=== PATIENT | female | born 1990 | race Caucasian/White ===

== ENCOUNTER → 2017-10-19 12:01 | Outpatient (CLI) | payer OTHER, SELFPAY ==
[2017-10-19 13:08] LABS: Hemoglobin A1c 6.9 % (4.2-6.3)
[2017-10-19 13:13] LABS: ALB/GLOB Ratio 0.9 RATIO (0.9-2.4); AST(SGOT) 14 U/L (15-37); Alanine Aminotransfer ALT/SGPT 17 U/L (13-56); Albumin, Serum 3.6 g/dL (3.2-5.0); Alkaline Phosphatase 100 U/L (45-117); Anion Gap 8 (5-15); BUN 10 mg/dL (7-18); BUN/Creat Ratio 12.1 RATIO (10-20); Calcium,Total 8.5 mg/dL (8.5-10.1); Chloride 104 mmol/L (98-107); Creatinine, Serum 0.83 mg/dL (0.55-1.02); EST Glomerular Filtration Rate 88 mL/min (>60); Est Glom Filt Rate - Afr Amer 106 mL/min (>60); Free T3 2.4 pg/mL (2.18-3.98); Glucose 161 mg/dL (74-106); Potassium 3.7 mmol/L (3.5-5.1); Protein, Total 7.6 g/dL (6.4-8.2); Sodium Level 136 mmol/L (136-145); T4 Free Direct 1.02 ng/dL (0.76-1.46); Thyroid Stim Hormone (TSH) 2.59 uIU/mL (0.358-3.74)
[2017-10-19 13:33] LABS: Vitamin D,25 Hydroxy 20.3 ng/mL (29.95-100.01)
== END ==
PROVIDERS: Visit Provider Nurse Practitioner
DX: E13.9 Other specified diabetes mellitus without complications (principal); E03.9 Hypothyroidism, unspecified
CPT/HCPCS: 36415; 80053; 82306; 83036; 84439; 84443; 84481

== ENCOUNTER → 2017-10-20 09:18 | Outpatient (CLI) | payer OTHER, SELFPAY ==
[2017-10-20 11:13] LABS: Microalbumin,Random Urine 8.9 mg/L (NO RANGE EST.); Microalbumin:Creatinine Ratio 7.5 mg/g CRE (<30 mg/g CRE)
== END ==
PROVIDERS: Visit Provider Nurse Practitioner
DX: E11.9 Type 2 diabetes mellitus without complications (principal)
CPT/HCPCS: 82043; 82570

== ENCOUNTER → 2018-02-09 09:50 | Outpatient (CLI) | payer OTHER, SELFPAY ==
--- NOTE | 2018-02-09 09:52 | US_ITS ---
STUDY: ULTRASOUND OF THE FEMALE PELVIS - COMPLETE REASON FOR EXAM: Female, 27 years old. Pelvic pain LMP: 02/04/2018 TECHNIQUE: Transabdominal and Transvaginal TECHNICAL QUALITY: Adequate. COMPARISON: None. FINDINGS: The uterus is anteverted and is in a midline position. The uterus measures 8.4 x 5.4 x 3.2 cm. Normal uterine cervix. The endometrium measures 8 mm in thickness, and is . There is no demonstrated endometrial mass. There is no demonstrated myometrial mass. I.U.D. - The patient does not have an I.U.D. The right ovary is visualized. The right ovary measures 3.8 x 3.2 x 2.4 cm. There is no right ovarian cyst or ovarian mass. There is no visualized right adnexal mass or complex lesion. There is normal arterial and normal venous vascularity. The left ovary is visualized. The left ovary measures 2.9 x 3.3 x 1.9 cm. There is no left ovarian cyst or ovarian mass. There is no visualized left adnexal mass or complex lesion. There is normal arterial and normal venous vascularity. There is no fluid in the cul-de-sac. The pre void volume of the bladder was ml. The post void volume of the bladder was ml. Polycystic ovary disease: No. US/Pelvic (Non ) IMPRESSION: Normal female pelvis. Electronically Signed: José Miguel Farmer MD at 7:45 EDT Tel , Service support ,
--- NOTE | 2018-02-09 10:28 | US_ITS ---
STUDY: ULTRASOUND OF THE FEMALE PELVIS - COMPLETE REASON FOR EXAM: Female, 27 years old. Pelvic pain LMP: 02/04/2018 TECHNIQUE: Transabdominal and Transvaginal TECHNICAL QUALITY: Adequate. COMPARISON: None. FINDINGS: The uterus is anteverted and is in a midline position. The uterus measures 8.4 x 5.4 x 3.2 cm. Normal uterine cervix. The endometrium measures 8 mm in thickness, and is . There is no demonstrated endometrial mass. There is no demonstrated myometrial mass. I.U.D. - The patient does not have an I.U.D. The right ovary is visualized. The right ovary measures 3.8 x 3.2 x 2.4 cm. There is no right ovarian cyst or ovarian mass. There is no visualized right adnexal mass or complex lesion. There is normal arterial and normal venous vascularity. The left ovary is visualized. The left ovary measures 2.9 x 3.3 x 1.9 cm. There is no left ovarian cyst or ovarian mass. There is no visualized left adnexal mass or complex lesion. There is normal arterial and normal venous vascularity. There is no fluid in the cul-de-sac. The pre void volume of the bladder was ml. The post void volume of the bladder was ml. Polycystic ovary disease: No. US/Transvaginal Non- IMPRESSION: Normal female pelvis. Electronically Signed: José Miguel Farmer MD at 7:45 EDT Tel , Service support ,
== END ==
PROVIDERS: Family Provider Internal Medicine; PCP Internal Medicine; Referring Provider Internal Medicine; Visit Provider Internal Medicine
DX: R10.2 Pelvic and perineal pain (principal)
CPT/HCPCS: 76830; 76856; 93976

== ENCOUNTER 2018-10-01 01:05 | Emergency (ER) | payer OTHER, SELFPAY ==
[2018-10-01 01:06] VITALS: BP 135/78; PULSE 109; RESP 18; TEMP 36.2; O2SAT 95; BMI 37.7
--- NOTE | 2018-10-01 01:19 | EKG12_ITS ---
Test Reason : CP Blood Pressure : / mmHG Vent. Rate : 103 BPM Atrial Rate : 103 BPM P-R Int : 126 ms QRS Dur : 074 ms QT Int : 384 ms P-R-T Axes : 040 029 019 degrees QTc Int : 503 ms Sinus tachycardia Otherwise normal ECG Confirmed by LAURA PATEL, SAURABH ([id number]), rewrite editor TARIQ MIXON ([id number]) on 10/02/2018 10:40:24 AM Referred By: JUSTIN Confirmed By:SAURABH SANCHEZ MD
--- NOTE | 2018-10-01 01:19 | RAD_ITS ---
HISTORY: COUGH EXAM:XR Chest 1 View portable COMPARISON: 07/20/2016 FINDINGS: EKG leads in place. Normal heart size. No vascular congestion, pleural effusion, or acute pulmonary infiltration. No pneumothorax. The bony thorax appears intact. RAD/Chest 1 View (Portable) IMPRESSION: Normal chest. at 0212 Reported and signed by: Vic Andres MD Electronically Signed: Vic Andres, at 2:11 EDT Tel , Service support ,
--- NOTE | 2018-10-01 01:19 | CT_ITS ---
HISTORY: UNRESPONSIVE WITH MENTAL STATUS CHANGE,LOW BLOOD SUGAR,SHIELDEDHX:DIABETES,DKA EXAMINATION: CT Head or Brain W/O Contrast TECHNIQUE: Multiple axial images were obtained of the brain without intravenous contrast. A radiation dose optimization technique was used for this scan. IV Contrast dosage and agent: None. COMPARISON: None FINDINGS: Normal ventricles and normal payan-white matter differentiation. No intracranial mass, hemorrhage, or acute parenchymal abnormality. Posterior fossa structures are unremarkable. No suspicious extra-axial fluid collection. The calvarium appears intact. As visualized, the mastoids and The sinuses are clear. CT/Brain/Head without Contrast IMPRESSION: Normal CT brain without contrast. Individualized dose optimization techniques were used for this CT. at 0252 Reported and signed by: Vic Andres MD Electronically Signed: Vic Andres, at 2:51 EDT Tel , Service support ,
[2018-10-01 01:21] LABS: Bedside Glucose 146 mg/dL (70-110)
[2018-10-01] MEDS: 0.9% Normal Saline 1,000 ML 1000 ML IV (01:22)
[2018-10-01 01:30] LABS: Absolute Lymphocyte Count 2.99 X10^3/ul (0.83-4.51); Absolute Neutrophil Count 5.9 X10^3/uL (2.0-7.7); Basophil# 0.03 X10^3/uL; Basophil% 0.3 % (0-1); Eosinophil# 0.13 X10^3/uL; Eosinophils% 1.3 % (0-5); Hematocrit 39.3 % (37-47); Lymphocyte # 2.99 X10^3/ul (4.0); Lymphocyte % 30.2 % (19-41); Mean Corp Hgb Conc 35.6 g/gl (32-36); Mean Corpuscular Volume 86.9 fL (81-99); Mean Platelet Vol. 10.3 fl (6.2-12.0); Monocyte# 0.81 X10^3/uL; Monocyte% 8.2 % (0-10); Neutrophil # 5.92 X10^3/uL (2.7-7.7); Neutrophil % 59.8 % (47-70); Platelet Count 179 K/mm3 (150-450); RBC Distribution Width CV 11.6 % (11.6-14.6); RBC Distribution Width SD 36.8 fl (35.1-43.9); Red Blood Count 4.52 M/mm3 (4.2-5.4); White Blood Count 9.9 K/mm3 (4.4-11.0)
[2018-10-01 01:34] LABS: POSITIVE COUNT NO; POSITIVE DIFFERENTIAL NO; POSITIVE MORPHOLOGY NO
[2018-10-01 01:44] LABS: ALB/GLOB Ratio 0.9 RATIO (0.9-2.4); AST(SGOT) 17 U/L (15-37); Alanine Aminotransfer ALT/SGPT 17 U/L (13-56); Albumin, Serum 3.5 g/dL (3.2-5.0); Alkaline Phosphatase 95 U/L (45-117); Anion Gap 9 (5-15); BUN 14 mg/dL (7-18); BUN/Creat Ratio 15.6 RATIO (10-20); Calcium,Total 8.1 mg/dL (8.5-10.1); Chloride 103 mmol/L (98-107); EST Glomerular Filtration Rate 79 mL/min (>60); Est Glom Filt Rate - Afr Amer 96 mL/min (>60); Estimated Creatinine Clearance 83.74 ml/min; Globulin 3.8 g/dL (2.2-4.2); Glucose 198 mg/dL (74-106); Potassium 3.3 mmol/L (3.5-5.1); Protein, Total 7.3 g/dL (6.4-8.2); Sodium Level 137 mmol/L (136-145)
[2018-10-01 01:46] LABS: Allen Test POS; Base Excess -2 mmol/L (-2 to +2); Bicarbonate 22.6 mmol/L (22-26); Blood Gas Specimen Type ART; O2 Delivery Device Room Air; PO2 88 mmHG (75-100); SITE R Radial; SO2 97 % (95-99); Total Carbon Dioxide 24 mmol/L; pCO2 36.7 mmHg (35-45)
[2018-10-01 01:50] LABS: Bedside Glucose 117 mg/dL (70-110)
[2018-10-01 01:52] LABS: Bacteria 0 SEEN /hpf (None Seen); Mucous, Urine 0 SEEN /hpf (<or=2+); Red Blood Cells-Urine 0 SEEN /hpf (0-5); Squamous Epithelial Cells - UA 0 SEEN /hpf (5-10); White Blood Cells 0 SEEN /hpf (0-5)
[2018-10-01 01:53] LABS: Pregnancy, Serum, hCG Quali. NEGATIVE Negative (0-9 Nonpreg)
[2018-10-01 01:58] LABS: Color, Urine Yellow (Yellow); Glucose, Dipstick 100 mg/dl (Normal); Ketone-Dipstick Negative (Negative); Leukocyte Esterase-Dipstick Negative /ul (Negative); Nitrite-Dipstick Negative (Negative); Occult Blood-Urine Negative /ul (Negative); Protein-Dipstick Negative (Negative); Urine Bilirubin Dipstick Negative (Negative); Urine Clarity Clear (Clear); Urine Urobilinogen Normal (Normal); Urine pH 6.5 (5.0 - 8.0)
[2018-10-01 01:59] LABS: Alcohol, Blood (Medical)-Serum < 3.0 mg/dL
[2018-10-01 02:11] LABS: Internal QC Validated? YES +Cl - CLEAR BKGD
[2018-10-01 02:12] LABS: Amphetamine Urine VISTA NEGATIVE (<1000 ng/mL); Barbiturate Urine VISTA NEGATIVE (< 200 ng/mL); Benzodiazepine Urine VISTA NEGATIVE (< 200 ng/mL); Cocaine Urine VISTA NEGATIVE (< 300 ng/mL); Ecstacy Urine VISTA NEGATIVE (< 500 ng/mL); Methadone Urine VISTA NEGATIVE (< 300 ng/mL); PCP Urine VISTA NEGATIVE (< 25 ng/mL); THC Urine VISTA NEGATIVE (< 50 ng/mL); Vista UDS pH Range 6
[2018-10-01 02:30] VITALS: BP 116/80; PULSE 89; RESP 16; O2SAT 98
[2018-10-01 02:56] VITALS: BP 102/68; PULSE 100; RESP 16; O2SAT 100
--- NOTE | 2018-10-01 02:59 | ED.VISSUMM ---
- ER Visit Summary Date of Service: 10/01/18 Chief Complaint: Altered mental status History of Present Illness: The patient is a 28 F who presents with altered mental status. She is a type I diabetic. EMS was called for altered mental status and her initial blood sugar was 27. She was given D50 and it improved to about 150. However she remained confused. When they rechecked her blood sugar she was back down to 70 and was given another half amp of D50. Initially review of systems unable to be obtained. The patient remained confused on initial presentation. Physical Examination: Heart rate 109 vitals otherwise unremarkable Moist mucous membranes Heart regular rhythm slightly tachycardic Lungs clear Abdomen soft nontender Patient diaphoretic and cool Patient is nonverbal on initial exam but is following commands although slowly. She has no focal or lateralizing deficits Blunt affect Test Results: EKG shows sinus rhythm at a rate of 103. Labs notable for potassium 3.3. Glucose 198. Urinalysis normal. negative. Alcohol and drug screens normal. ABG normal. Chest x-ray normal. CT the head normal. Emergency Department Course and Treatment: Patient was given IV fluids. Given that she remained confused with a normal blood sugar the above work-up was pursued. On reevaluation the patient is awake alert answering all questions appropriately. She denies any recent illness. She took her usual insulin doses. Patient's transient confusion did seem to last longer than I would expect just from hypoglycemia given that her glucose have been corrected. However her work-up is unremarkable she has no complaints currently and her work-up is normal. Therefore I do believe she can be discharged home although I stressed the importance of outpatient follow-up. She understands to return for any new or worsening symptoms and was discharged home. Treatment Plan: [] Disposition: Discharge Impression: Hypoglycemia Transient altered mental status This note was generated with [employer] software. It may contain incorrect words, spelling, and punctuation that were not noted in review of the chart prior to signing ED Disposition - Plan for ED Patient: Referrals: Geovanna Ibarra MD [Primary Care Provider] -
--- NOTE | 2018-10-01 03:02 | ED.DEP ---
ED Disposition - Plan for ED Patient: Instructions: ED Diabetes Hypoglycemia Insulin React Referrals: Geovanna Ibarra MD [Primary Care Provider] -
--- NOTE | 2018-10-01 03:08 | ED.RN ---
pt called on house phone. he will pick her up. socks given as she is barefoot. iv removed with cath intact. all questions answered, no further concerns.
== END 2018-10-01 03:10 | disposition home or self-care (01) ==
LOC: ED 01:17
PROVIDERS: Emergency Provider Emergency Medicine; Family Provider Internal Medicine; PCP Internal Medicine
DX: E10.649 Type 1 diabetes mellitus with hypoglycemia without coma (principal); R41.82 Altered mental status, unspecified; Z79.4 Long term (current) use of insulin
CPT/HCPCS: 36415; 36600; 70450; 71045; 80053; 80307; 80320; 81001; 82803; 82962; 84703; 85025; 93005; 96360; 99285; J7030; P9612; A4216; G0480

== ENCOUNTER → 2019-07-12 | Outpatient (CLI) | payer OTHER, SELFPAY ==
[2019-03-12 16:55] VITALS: BMI 37.7
[2019-07-12 09:55] LABS: Hemoglobin A1c 7.6 % (4.2-6.3)
[2019-07-12 10:05] LABS: ALB/GLOB Ratio 0.8 RATIO (0.9-2.4); AST(SGOT) 19 U/L (15-37); Alanine Aminotransfer ALT/SGPT 23 U/L (13-56); Albumin, Serum 3.2 g/dL (3.2-5.0); Alkaline Phosphatase 88 U/L (45-117); Anion Gap 4 (5-15); BUN 10 mg/dL (7-18); BUN/Creat Ratio 13.4 RATIO (10-20); Calcium,Total 8.2 mg/dL (8.5-10.1); Chloride 106 mmol/L (98-107); Cholesterol 163 mg/dL (200); Creatinine, Serum 0.75 mg/dL (0.55-1.02); EST Glomerular Filtration Rate 98 mL/min (>60); Est Glom Filt Rate - Afr Amer 118 mL/min (>60); Globulin 3.9 g/dL (2.2-4.2); Glucose 252 mg/dL (74-106); High Density Lipoprotein 56 mg/dL; Potassium 4.4 mmol/L (3.5-5.1); Protein, Total 7.1 g/dL (6.4-8.2); Sodium Level 135 mmol/L (136-145); Triglycerides 92 mg/dL; Very Low Density Lipoprotein 18 mg/dL (5-40)
== END | disposition home or self-care (01) ==
PROVIDERS: PCP Internal Medicine; Referring Provider Nurse Practitioner; Visit Provider Nurse Practitioner
DX: E10.9 Type 1 diabetes mellitus without complications (principal); E03.9 Hypothyroidism, unspecified
CPT/HCPCS: 36415; 80053; 80061; 83036; 84443

== ENCOUNTER → 2019-07-14 | Outpatient (CLI) | payer OTHER, SELFPAY ==
[2019-03-12 16:55] VITALS: BMI 37.7
[2019-07-15 00:03] LABS: Microalbumin,Random Urine < 5.0 mg/L (NO RANGE EST.)
== END | disposition home or self-care (01) ==
PROVIDERS: PCP Internal Medicine; Referring Provider Nurse Practitioner; Visit Provider Nurse Practitioner
DX: E10.9 Type 1 diabetes mellitus without complications (principal)
CPT/HCPCS: 82043; 82570

== ENCOUNTER 2019-10-21 13:57 | Emergency (ER) | payer OTHER, SELFPAY ==
[2019-08-25 08:48] VITALS: BMI 37.7
[2019-10-21 13:58] VITALS: BP 136/83; PULSE 121; RESP 18; TEMP 36.2; O2SAT 98; BMI 37.8
[2019-10-21] MEDS: Ondansetron 4 MG/2 ML Vial IV (14:42)
[2019-10-21] MEDS: Morphine 4 MG/ML Syringe IV (14:42)
[2019-10-21 14:51] LABS: Internal QC Validated? YES +Cl - CLEAR BKGD; Pregnancy, Serum, hCG Quali. NEGATIVE Negative
[2019-10-21 15:30] LABS: Anion Gap 8 (5-15); BUN 8 mg/dL (7-18); BUN/Creat Ratio 10.1 RATIO (10-20); Calcium,Total 8.5 mg/dL (8.5-10.1); Chloride 102 mmol/L (98-107); Creatinine, Serum 0.79 mg/dL (0.55-1.02); EST Glomerular Filtration Rate 91 mL/min (>60); Est Glom Filt Rate - Afr Amer 110 mL/min (>60); Estimated Creatinine Clearance 90.73 ml/min; Glucose 402 mg/dL (74-106); Potassium 3.5 mmol/L (3.5-5.1); Sodium Level 138 mmol/L (136-145)
--- NOTE | 2019-10-21 16:00 | ED.DCSUM_ITS ---
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 Her primary care physician is Dr. Ibarra. 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 States this was when she was approximately 18 years old. She describes a Andres catheter as well as marsupialization. States that she has not had problems for approximately 10 years. Patient reports that she has swelling on the left, the area of all of her prior abscesses, that began yesterday. She has an aching pain is 10 on 10 at worst and 8 out of 10 currently. Is worsened with walking or sitting. She has taken ibuprofen without relief. She denies any vaginal bleeding or discharge. States her last menstrual period was 3 days ago. She is sexually active. Physical Examination: Vitals: Stable. Afebrile. General: Well-nourished and well-developed. Head: Normocephalic atraumatic. Neck: Supple, no lymphadenopathy. No JVD. Nontender. Cardiovascular: Regular rate and rhythm. No murmurs. Respiratory: No respiratory distress. Clear to auscultation bilaterally. Abdominal: Soft, nontender, nondistended, normal bowel sounds. No guarding, rebound, or peritoneal signs. : External exam shows no lesions. There is an approximately 1 cm painful cyst at the left Bartholin gland. There is no appreciable erythema or fluctuance. There is scar tissue here that makes exam difficult to perform. Patient's pain also limits the exam. Back: Nontender. Extremities: Nontender, no edema. Skin: Normal color, no rash. Neurologic: Alert and oriented ?3. Cranial nerves II through XII are intact. Normal strength and sensation. Psych: Normal affect. Test Results: Chem-7 shows a glucose of 402. Her bicarb is normal. She has a normal anion gap. test is negative. Emergency Department Course and Treatment: Patient has an insulin pump. She has given herself a bolus and increased her rate. She was given morphine and Zofran IV. Treatment Plan: I discussed the patient with Dr. Garcia, who is on-call for [facility], who agrees that it does not sound like there is anything that would be amenable to drainage at this time. Patient will be discharged prescription for Cleopatra and instructed to follow-up with Dr. Garcia within 2 days for another exam. She instructed take pain medication prior to this appointment to improve the ability to get a quality exam on her. Return to the emergency department for any worsening symptoms. Disposition: To home in improved and stable condition. Impression: 1. Bartholin gland cyst on left, recurrent. This note was generated with Quis[employer] dictation software. It may contain incorrect words, spelling, and punctuation that were not noted in review of the chart prior to signing ED Disposition - Plan for ED Patient: Disposition: Home or Assisted Living Instructions: ED Bartholins Cyst No Infec Prescriptions: Hydrocodone Bitart/Apap 5-325 [Olar 5MG-325MG] 1 tab PO Q6H PRN PRN 3 Days #14 tab PRN Reason: Pain Prescription Printed Referrals: Wilmer Garcia MD [STAFF PHYSICIAN] - As soon as possible
[2019-10-21 16:23] VITALS: BP 128/78; PULSE 97; RESP 16; O2SAT 99
== END 2019-10-21 16:24 | disposition home or self-care (01) ==
LOC: ED 14:51
PROVIDERS: Emergency Provider Emergency Medicine; PCP Internal Medicine
DX: N75.0 Cyst of Bartholin's gland (principal); E10.9 Type 1 diabetes mellitus without complications; E03.9 Hypothyroidism, unspecified; Z96.41 Presence of insulin pump (external) (internal); Z79.4 Long term (current) use of insulin; Z79.899 Other long term (current) drug therapy
CPT/HCPCS: 80048; 84703; 96374; 96375; 99283; J2405

== ENCOUNTER → 2020-06-22 15:06 | Outpatient (CLI) | payer MEDICAID, SELFPAY ==
[2020-06-22 14:10] VITALS: BMI 30.9
[2020-06-22 16:55] LABS: Vitamin D,25 Hydroxy 16.4 ng/mL
[2020-06-22 17:00] LABS: ALB/GLOB Ratio 0.9 RATIO (0.9-2.4); AST(SGOT) 9 U/L (15-37); Alanine Aminotransfer ALT/SGPT 21 U/L (13-56); Albumin, Serum 3.7 g/dL (3.2-5.0); Alkaline Phosphatase 79 U/L (45-117); Anion Gap 8 (5-15); BUN 11 mg/dL (7-18); BUN/Creat Ratio 13.5 RATIO (10-20); Calcium,Total 8.6 mg/dL (8.5-10.1); Chloride 104 mmol/L (98-107); Cholesterol 147 mg/dL (200); Creatinine, Serum 0.82 mg/dL (0.55-1.02); EST Glomerular Filtration Rate 88 mL/min (>60); Est Glom Filt Rate - Afr Amer 106 mL/min (>60); Globulin 3.9 g/dL (2.2-4.2); Glucose 219 mg/dL (74-106); High Density Lipoprotein 64 mg/dL; Potassium 3.8 mmol/L (3.5-5.1); Protein, Total 7.6 g/dL (6.4-8.2); Sodium Level 135 mmol/L (136-145); T4 Free Direct 1.34 ng/dL (0.76-1.46); Thyroid Stim Hormone (TSH) 0.34 uIU/mL (0.358-3.74); Triglycerides 58 mg/dL; Very Low Density Lipoprotein 12 mg/dL (5-40)
== END ==
PROVIDERS: Nurse Practitioner Women's Health; PCP Internal Medicine; Referring Provider Internal Medicine Endocrinology, Diabetes & Metabolism; Visit Provider Internal Medicine Endocrinology, Diabetes & Metabolism
DX: O99.280 Endocrine, nutritional and metabolic diseases complicating pregnancy, unspecified trimester (principal); E03.8 Other specified hypothyroidism; E06.3 Autoimmune thyroiditis; E55.9 Vitamin D deficiency, unspecified; Z32.01 Encounter for pregnancy test, result positive; Z3A.00 Weeks of gestation of pregnancy not specified
CPT/HCPCS: 36415; 80053; 80061; 82306; 84439; 84443; 84702

== ENCOUNTER → 2020-06-28 14:34 | Outpatient (CLI) | payer MEDICAID, SELFPAY ==
[2020-06-22 14:10] VITALS: BMI 30.9
--- NOTE | 2020-06-28 14:51 | US_ITS ---
STUDY: FIRST TRIMESTER OBSTETRICAL ULTRASOUND REASON FOR EXAM: Female, 30 years old DATING/LIABILITY- HCG [id number] DRAWN 06/22/20. LAST KNOWN LMP and quot;SOMETIME IN MARCH and quot;- PER PT LMP: 03/31/2020. TECHNIQUE: Transabdominal TECHNICAL QUALITY: Adequate. PRIOR ULTRASOUND: None. FINDINGS: There is visualization of a single gestational sac in a normal intrauterine position. The mean sac diameter (MSD) measures 3.19 cm, indicating an estimated gestational age (EGA) of 8 weeks, 2 days. The gestational sac shape is within normal limits. There is a visualized yolk sac. The yolk sac measures 3.3 mm. The placenta is non-visualized. There is visualization of a live embryo. The crown-rump length (CRL) measures 1.17 cm, indicating an estimated gestational age (EGA) of 7 weeks, 2 days. There is demonstrated cardiac activity with a heart rate of 158 bpm. The estimated gestation age (EGA) by LMP is 12 weeks, 5 days. The estimated date of delivery (CARLEY) by LMP is 01/05/2021. The estimated gestation age (EGA) by US is 7 weeks, 5 days. The estimated date of delivery (CARLEY) by US is 02/09/2021. The uterus measures 9.9 cm x 6.5 cm x 5.2 cm. There is no demonstrated uterine fibroid. The cervix is closed. The right ovary measures 2.9 cm x 1.8 cm x 1.4 cm. There is no right ovarian cyst. There is no visualized right adnexal mass or complex lesion. The left ovary measures 2.6 cm x 2.9 cm x 2 cm. There is no left ovarian cyst. There is no visualized left adnexal mass or complex lesion. There is no fluid in the cul de sac. US/Init OB < 14Wks US IMPRESSION: Single live intrauterine gestation with a mean gestational age of 7 weeks and 5 days. Electronically Signed: Phong Cunningham MD at 15:38 EST , Service support ,
[2020-06-28 17:14] LABS: Microalbumin,Random Urine < 5.0 mg/L (NO RANGE EST.)
== END ==
PROVIDERS: Internal Medicine Endocrinology, Diabetes & Metabolism; PCP Internal Medicine; Referring Provider Nurse Practitioner Women's Health; Visit Provider Nurse Practitioner Women's Health
DX: O99.280 Endocrine, nutritional and metabolic diseases complicating pregnancy, unspecified trimester (principal); E03.8 Other specified hypothyroidism; E06.3 Autoimmune thyroiditis; Z3A.00 Weeks of gestation of pregnancy not specified
CPT/HCPCS: 76801; 82043; 82570

== ENCOUNTER → 2020-07-07 | Outpatient (CLI) | payer MEDICAID, SELFPAY ==
[2020-07-07 13:44] VITALS: BMI 31.2
[2020-07-10 14:09] LABS: Chlamydia By Nucleic Acid AMP Positive (Negative)
[2020-07-10 15:41] LABS: Gonococcus By Nucleic Acid AMP Negative (Negative)
[2020-07-13 20:07] LABS: HPV Genotype 16, Aptima Negative (Negative)
[2020-07-14 13:05] LABS: HPV APTIMA, High Risk Positive (Negative); HPV Genotype 18,45 Aptima Negative (Negative)
== END | disposition home or self-care (01) ==
LOC: LABSPEC 17:01
PROVIDERS: PCP Internal Medicine; Referring Provider Obstetrics & Gynecology; Visit Provider Obstetrics & Gynecology
DX: Z12.4 Encounter for screening for malignant neoplasm of cervix (principal)
CPT/HCPCS: 87491; 87591; 87624; 88175; G0145

== ENCOUNTER → 2020-08-12 15:25 | Outpatient (CLI) | payer MEDICAID, SELFPAY ==
[2020-08-12 14:44] VITALS: BMI 32.5
[2020-08-12 15:55] LABS: Absolute Lymphocyte Count 2.46 X10^3/uL (0.83-4.51); Absolute Neutrophil Count 7.1 X10^3/uL (2.0-7.7); Basophil# 0.02 X10^3/uL; Basophil% 0.2 % (0-1); Eosinophil# 0.02 X10^3/uL; Eosinophils% 0.2 % (0-5); Hemoglobin 12.9 g/dL (12.0-15.0); Lymphocyte # 2.46 X10^3/ul (4.0); Mean Corp Hgb Conc 34.9 g/dL (32-36); Mean Corpuscular Hgb 31.8 pg (27.0-32.0); Mean Corpuscular Volume 91.1 fL (81-99); Mean Platelet Vol. 10.1 fl (6.2-12.0); Monocyte# 0.58 X10^3/uL; Monocyte% 5.7 % (0-10); NRBC Flagged by Analyzer 0 % (0-5); Neutrophil # 7.11 X10^3/uL (2.7-7.7); Neutrophil % 69.3 % (47-70); Platelet Count 170 K/mm3 (150-450); RBC Distribution Width CV 11.9 % (11.6-14.6); RBC Distribution Width SD 39.6 fl (35.1-43.9); Red Blood Count 4.06 M/mm3 (4.2-5.4); White Blood Count 10.3 K/mm3 (4.4-11.0)
[2020-08-12 16:34] LABS: NATERA MAILED SPECIMEN
[2020-08-13 10:34] LABS: HIV - WCH Non-Reactive (Nonreactive); Hepatitis B Surface Antigen Non-Reactive (Nonreactive); Hepatitis C Antibody Non-Reactive (Nonreactive); Rubella IgG Reactive (Nonreactive); Syphilis Antibodies Non-reactive
== END ==
PROVIDERS: Obstetrics & Gynecology; PCP Internal Medicine; Visit Provider Obstetrics & Gynecology
DX: O09.90 Supervision of high risk pregnancy, unspecified, unspecified trimester (principal); Z3A.00 Weeks of gestation of pregnancy not specified; Z31.430 Encounter of female for testing for genetic disease carrier status for procreative management
CPT/HCPCS: 36415; 85025; 86703; 86762; 86780; 86803; 86850; 86900; 86901; 87340

== ENCOUNTER → 2020-09-01 13:17 | Outpatient (CLI) | payer MEDICAID, SELFPAY ==
[2020-08-12 14:44] VITALS: BMI 32.5
--- NOTE | 2020-09-01 13:20 | EKG12_ITS ---
Test Reason : ROUTINE Blood Pressure : / mmHG Vent. Rate : 096 BPM Atrial Rate : 096 BPM P-R Int : 110 ms QRS Dur : 084 ms QT Int : 346 ms P-R-T Axes : 043 051 021 degrees QTc Int : 437 ms Sinus rhythm with short WA Otherwise normal ECG Confirmed by LAURA PATEL, SAURABH ([id number]), video editor TARIQ MIXON ([id number]) on 09/02/2020 9:18:42 AM Referred By: Samantha Ramirez Confirmed By:SAURABH SANCHEZ MD
[2020-09-01 17:04] LABS: Protein:Creat Ratio 138 mg/g CRE (0-200)
[2020-09-01 18:32] LABS: Chlamydia Trachomatis by PCR Negative (Negative); Neisserai gonorrhoeae by PCR Negative (Negative); Probe Check PASS; Sample Adequacy Control PASS; Specimen Processing Control PASS
== END ==
PROVIDERS: Obstetrics & Gynecology; PCP Internal Medicine; Referring Provider Obstetrics & Gynecology; Visit Provider Obstetrics & Gynecology
DX: O24.011 Pre-existing type 1 diabetes mellitus, in pregnancy, first trimester (principal); O98.819 Other maternal infectious and parasitic diseases complicating pregnancy, unspecified trimester; A74.9 Chlamydial infection, unspecified; Z3A.00 Weeks of gestation of pregnancy not specified
CPT/HCPCS: 82570; 84156; 87491; 87591; 93005

== ENCOUNTER → 2020-09-27 14:12 | Outpatient (CLI) | payer MEDICAID, SELFPAY ==
[2020-09-27 13:16] VITALS: BMI 32.5
[2020-09-27 15:35] LABS: Thyroid Stim Hormone (TSH) 1.54 uIU/mL (0.358-3.74)
== END ==
PROVIDERS: PCP Internal Medicine; Visit Provider Internal Medicine Endocrinology, Diabetes & Metabolism
DX: E06.3 Autoimmune thyroiditis (principal); E03.8 Other specified hypothyroidism
CPT/HCPCS: 36415; 84439; 84443

== ENCOUNTER 2020-10-15 20:05 | Outpatient (CLI) | payer MEDICAID, SELFPAY ==
[2020-09-29 12:57] VITALS: BMI 33.7
[2020-10-15 20:14] VITALS: BMI 34.0
[2020-10-15 20:24] VITALS: BP 112/78; PULSE 75; TEMP 36.7; O2SAT 99
--- NOTE | 2020-10-16 23:43 | OB.TRI.PN ---
Progress Notes Date of Service: 10/15/20 Progress Note: Patient seen for falling onto her hands with no abdominal trauma or falling on her belly. She denies any vaginal bleeding but admits some cramping. Upon evaluation normal heart rate is seen and no significant contractions. Patient was discharged to home to follow-up in the office as scheduled. Rh+. Charges/Coding Procedures Urinary/Genital [id number]: No Charge
== END 2020-10-15 21:05 | disposition home or self-care (01) ==
LOC: WPOUT 20:13 → WP 20:28
PROVIDERS: PCP Internal Medicine; Visit Provider Obstetrics & Gynecology
DX: Z34.90 Encounter for supervision of normal pregnancy, unspecified, unspecified trimester (principal)
CPT/HCPCS: 59025; 59050; 99218; G0378

== ENCOUNTER 2020-10-30 07:31 | Emergency (ER) | payer OTHER, MEDICAID, SELFPAY ==
[2020-10-27 13:47] VITALS: BMI 34.3
[2020-10-30 07:32] VITALS: BP 113/69; PULSE 96; RESP 16; TEMP 36.6; O2SAT 96; BMI 34.3
--- NOTE | 2020-10-30 07:47 | EDS_ITS ---
HPI History of Present Illness Chief Complaint: Back Informant: patient Narrative Narrative: 30-year-old female presents with back pain. States that she was lifting at work approximately 5 hours ago when she experienced sudden back pain. Describes it is sharp in nature and in her lower back. Denies any numbness or tingling of her lower extremities. Patient is also 6 months . [facility] Medical History Arm fracture Depression Diabetes type 1, controlled Herpes genitalis Hypothyroid Presence of insulin pump Type 1 diabetes mellitus affecting in second trimester, antepartum Home Medications Novolog U-100 Insulin aspart 100 unit/mL subcutaneous solution 100 unit SC DAILY #30 ml NS 06/10/20 [Rx Last Taken Unknown] insulin syringe,safetyneedle 0.3 mL 31 gauge x 15/64 #50 ea 06/10/20 [Rx Last Taken Unknown] insulin lispro 100 unit/mL subcutaneous solution 85 unit SC DAILY #30 ml 06/22/20 [Rx Last Taken Unknown] glucagon (human recombinant) 1 mg solution for injection 1 mg SC Q20M PRN #2 ea 06/25/20 [Rx Last Taken Unknown] promethazine 12.5 mg tablet 12.5 mg PO Q6H PRN #60 tablet 07/26/20 [Rx Last Taken 10/15/20 10:00] FreeStyle Lite Meter #1 ea NS 08/13/20 [Rx Last Taken Unknown] blood sugar diagnostic #250 each 09/11/20 [Rx Last Taken Unknown] blood-glucose meter #1 each 09/11/20 [Rx Last Taken Unknown] levothyroxine 112 mcg PO DAILY 10/15/20 [History Last Taken 10/15/20 08:00] lidocaine [Lidoderm] 1 patch TOPICAL DAILY #15 ea 10/30/20 [Rx Last Taken Unknown] Allergy/AdvReac Type Severity Reaction Status Date / Time Penicillins Allergy Unknown Verified 10/30/20 07:35 Family History Grandfather Diabetes Mother Anemia Surgical History H/O removal of cyst Social History Smoking Status: Former smoker second hand exposure: Yes alcohol intake: current substance use type: does not use caffeine: Yes what type of physical activity do you participate in: none seatbelt use: sometimes do you feel safe at home: Yes additional social history: 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 ROS ROS ED Constitutional Constitutional ED: Denies chills, fever(s) or sweats Eyes Eyes: Denies blurry vision, change in vision or diplopia ENT ENT ED: Denies rhinorrhea or sore throat Cardiovascular Cardiovascular: Denies chest pain, orthopnea, palpitations or racing heartbeat Respiratory/Chest Respiratory/Chest: Denies cough, dyspnea, dyspnea on exertion, orthopnea or sputum Gastrointestinal Gastrointestinal: Denies abdominal pain, constipation, diarrhea, melena, nausea or vomiting Genitourinary Genitourinary ED: Denies dysuria, hematuria or urinary frequency Musculoskeletal Musculoskeletal: Reports back pain; Denies arthralgias, myalgias or neck pain Integumentary Denies rash Neurologic Neurologic: Denies headache(s), paresthesias or weakness Psychiatric Psychiatric: Denies anxiety or depression Hematologic/Lymphatic Hematologic/Lymphatic: Denies easy bleeding or easy bruising Allergic/Immunologic Allergic/Immunologic ED: Denies mouth swelling or tongue swelling EXAM Physical Exam Const Vital Signs: 10/30/20 07:32 Temperature 97.8 F Temperature Source Temporal Pulse Rate 96 Respiratory Rate 16 Blood Pressure 113/69 Blood Pressure Mean 83 Pulse Ox 96 Oxygen Delivery Method Room Air Positive well nourished and well developed General Appearance ED: well developed HEENT Reports TM's clear and moist mucous membranes normocephalic and atraumatic Tympanic Membrane ED: Yes TM's clear Eyes PERRL and EOMs intact bilaterally Neck no lymphadenopathy, supple and no JVD Chest Wall inspection of chest normal Resp normal respiratory effort and clear to auscultation bilaterally Cardio regular rate, S1 normal heart sound, S2 normal heart sound and no murmurs Peripheral Pulses: pulses 2+ throughout GI soft to palpation, non-tender and non-distended Back/Spine no CVA tenderness Back/Spine Narrative: TTP to the lumbar paraspinal musculature. Extremity normal to inspection General Extremety ED: Negative for edema or tenderness General Extremity: Negative for edema Neuro oriented x3, CN's II-XII intact bilaterally and no sensory deficits noted Sensorium / Orientation: alert Motor Exam: strength 5/5 throughout Psych mental status grossly normal Skin no rashes or lesions noted MDM MDM MDM Narrative Medical decision making narrative: Patient appears well and nontoxic. Vital signs within normal limits. Given the patient is currently she will be treated with Tylenol and Lidoderm patch. Given restrictions for work and occupational health follow-up. Advised on Tylenol 3 times per day. Given Lidoderm prescription. Asked to return for new or worsening symptoms. Patient agreeable and discharged home in stable condition. Discharge Plan Triage Chief Complaint: Back ED Provider: Samir Rodriguez Dx/Rx/DC Orders Clinical Impression: Lumbar strain Instructions: Back Pain During , ED Back Sprain/Strain Prescriptions: New lidocaine [Lidoderm] 5 % adhesive patch,medicated 1 patch topical DAILY Qty: 15 RF: 0 No Action insulin lispro 100 unit/mL solution 85 unit SC DAILY Qty: 30 RF: 4 levothyroxine 112 mcg tablet 112 mcg PO DAILY RF: 0 (DME) BD SafetyGlide Insulin Syringe 0.3 mL 31 gauge x 15/64 syringe See Rx Instructions .ROUTE .MEDSUPPLY Qty: 50 RF: 0 insulin aspart U-100 [Novolog U-100 Insulin aspart] 100 unit/mL solution 100 unit SC DAILY Qty: 30 RF: 3 Glucagon Emergency Kit (human) 1 mg recon soln 1 mg SC Q20M PRN (Reason: hypoglycemia) Qty: 2 RF: 6 promethazine 12.5 mg tablet 12.5 mg PO Q6H PRN (Reason: nausea and vomiting) Qty: 60 RF: 3 (DME) blood-glucose meter [FreeStyle Lite Meter] Kit See Rx Instructions .ROUTE .MEDSUPPLY Qty: 1 RF: 0 (DME) OneTouch Verio test strips Strip See Rx Instructions .ROUTE .MEDSUPPLY Qty: 250 RF: 7 (DME) blood-glucose meter [OneTouch Verio Flex meter] Misc See Rx Instructions .ROUTE .MEDSUPPLY Qty: 1 RF: 0 Primary Care Provider: Geovanna Ibarra Referrals: Geovanna Ibarra MD [Primary Care Provider] - 2 Days Disposition Disposition: Home, Self Care
[2020-10-30] MEDS: Lidocaine 5% Patch 1 PATCH TOPICAL (09:43)
[2020-10-30] MEDS: Acetaminophen 500 MG Tablet 1000 MG PO (09:43)
== END 2020-10-30 09:54 | disposition home or self-care (01) ==
PROVIDERS: Emergency Provider Emergency Medicine; PCP Internal Medicine
DX: O99.891 Other specified diseases and conditions complicating pregnancy (principal); S39.012A Strain of muscle, fascia and tendon of lower back, initial encounter; O24.019 Pre-existing type 1 diabetes mellitus, in pregnancy, unspecified trimester; E10.9 Type 1 diabetes mellitus without complications; Z3A.00 Weeks of gestation of pregnancy not specified; Z79.4 Long term (current) use of insulin; Z87.891 Personal history of nicotine dependence; X50.0XXA Overexertion from strenuous movement or load, initial encounter; Y93.89 Activity, other specified; Y92.89 Other specified places as the place of occurrence of the external cause; Y99.0 Civilian activity done for income or pay
CPT/HCPCS: 99284

== ENCOUNTER → 2020-11-22 14:16 | Outpatient (CLI) | payer MEDICAID, SELFPAY ==
[2020-09-27 14:06] VITALS: BMI 32.5
[2020-11-12 13:23] VITALS: BMI 34.3
--- NOTE | 2020-11-22 14:20 | US_ITS ---
STUDY: SECOND AND THIRD TRIMESTER OBSTETRICAL ULTRASOUND - LIMITED REASON FOR EXAM: Female, 30 years old growth, gestational diabetes LMP: 05/08/2020. PRIOR ULTRASOUND: Comparison is made with prior study dated 06/28/2020. TECHNIQUE: Transabdominal TECHNICAL QUALITY: Adequate. FINDINGS: There is a single intrauterine fetus. The fetus is in a cephalic presentation. There is demonstrated cardiac activity with a heart rate of 131 bpm. There is a normal amniotic fluid volume. The largest amniotic fluid pocket measures 5.62 cm. The amniotic fluid index (CARLO) is 19.2 cm. The placenta is anterior in location and is not low lying. There are Grade 0 placental changes. The cervix measures 3.47 cm in length. BIOMETRY: BPD: 7.37 cm: 29 weeks, 4 days HC: 27.48 cm: 30 weeks, 0 days AC: 25.45 cm: 29 weeks, 4 days FL: 5.6 cm: 29 weeks, 3 days Age by LMP: 28 weeks, 2 days. CARLEY by LMP: 02/12/2021. age by prior US: 28 weeks, 5 days. CARLEY by prior US: 02/09/2021. age by current US: 29 weeks, 4 days. CARLEY by current US: 02/03/2021. Estimated weight: 1430 grams, +/- 2014 grams, 84.8 percentile. US/OB Limited With Biometrics IMPRESSION: Single live uterine gestation with a mean gestational age of 28 weeks and 5 days. The measurements obtained today fall within the normal expected range. Electronically Signed: Phong Cunningham MD at 21:45 EDT , Service support ,
== END ==
PROVIDERS: PCP Internal Medicine; Referring Provider Obstetrics & Gynecology; Visit Provider Obstetrics & Gynecology
DX: O24.011 Pre-existing type 1 diabetes mellitus, in pregnancy, first trimester (principal); Z3A.00 Weeks of gestation of pregnancy not specified
CPT/HCPCS: 76816

== ENCOUNTER → 2020-11-25 11:14 | Outpatient (CLI) | payer MEDICAID, SELFPAY ==
[2020-11-25 10:45] VITALS: BMI 34.3
[2020-11-25 11:28] LABS: Absolute Lymphocyte Count 1.71 X10^3/uL (0.83-4.51); Absolute Neutrophil Count 9.3 X10^3/uL (2.0-7.7); Basophil# 0.02 X10^3/uL; Basophil% 0.2 % (0-1); Eosinophil# 0.06 X10^3/uL; Eosinophils% 0.5 % (0-5); Hematocrit 36.3 % (37-47); Hemoglobin 12.4 g/dL (12.0-15.0); Lymphocyte # 1.71 X10^3/ul (0.83-4.51); Lymphocyte % 14.5 % (19-41); Mean Corp Hgb Conc 34.2 g/dL (32-36); Mean Corpuscular Volume 93.8 fL (81-99); Mean Platelet Vol. 9.7 fl (6.2-12.0); Monocyte# 0.68 X10^3/uL; Monocyte% 5.7 % (0-10); NRBC Flagged by Analyzer 0 % (0-5); Neutrophil # 9.28 X10^3/uL (2.7-7.7); Neutrophil % 78.4 % (47-70); Platelet Count 144 K/mm3 (150-450); RBC Distribution Width CV 11.9 % (11.6-14.6); RBC Distribution Width SD 40.8 fl (35.1-43.9); Red Blood Count 3.87 M/mm3 (4.2-5.4); White Blood Count 11.8 K/mm3 (4.4-11.0)
[2020-11-25 11:58] LABS: T4 Free Direct 1.45 ng/dL (0.76-1.46); Thyroid Stim Hormone (TSH) 0.37 uIU/mL (0.358-3.74)
== END ==
PROVIDERS: Obstetrics & Gynecology; PCP Internal Medicine; Referring Provider Obstetrics & Gynecology; Visit Provider Obstetrics & Gynecology
DX: O99.282 Endocrine, nutritional and metabolic diseases complicating pregnancy, second trimester (principal); E06.3 Autoimmune thyroiditis; Z3A.28 28 weeks gestation of pregnancy
CPT/HCPCS: 36415; 84439; 84443; 85025

== ENCOUNTER → 2020-11-29 12:06 | Outpatient (CLI) | payer MEDICAID, SELFPAY ==
[2020-09-27 14:06] VITALS: BMI 32.5
[2020-11-25 10:45] VITALS: BMI 34.3
--- NOTE | 2020-11-29 12:08 | US_ITS ---
STUDY: SECOND AND THIRD TRIMESTER OBSTETRICAL ULTRASOUND - LIMITED REASON FOR EXAM: Female, 30 years old diabetes -- CARLO LMP: 05/01/2020. PRIOR ULTRASOUND: Comparison is made with prior examination of 11/22/2020. TECHNIQUE: Transabdominal TECHNICAL QUALITY: Adequate. FINDINGS: There is a single intrauterine fetus. The fetus is in a cephalic presentation. There is demonstrated cardiac activity with a heart rate of 153 bpm. There is a normal amniotic fluid volume. The largest amniotic fluid pocket measures 7.8 cm. The amniotic fluid index (CARLO) is 24.6 cm. The placenta is anterior in location and is not low lying. There are Grade 0 placental changes. The cervix measures 3.8 cm in length. US/OB Limited (No Biometrics) IMPRESSION: Normal amniotic fluid. Electronically Signed: Phong Cunningham MD at 15:24 EDT , Service support ,
== END ==
PROVIDERS: PCP Internal Medicine; Visit Provider Obstetrics & Gynecology
DX: O24.011 Pre-existing type 1 diabetes mellitus, in pregnancy, first trimester (principal); Z3A.00 Weeks of gestation of pregnancy not specified
CPT/HCPCS: 76815

== ENCOUNTER → 2020-12-08 13:25 | Outpatient (CLI) | payer MEDICAID, SELFPAY ==
[2020-09-27 14:06] VITALS: BMI 32.5
[2020-12-03 13:18] VITALS: BMI 34.3
--- NOTE | 2020-12-08 13:29 | US_ITS ---
STUDY: SECOND AND THIRD TRIMESTER OBSTETRICAL ULTRASOUND - LIMITED REASON FOR EXAM: Female, 30 years old CARLO ONLY LMP: 05/01/2020 PRIOR ULTRASOUND: 11/29/2020 TECHNIQUE: Transabdominal TECHNICAL QUALITY: Adequate. FINDINGS: There is a single intrauterine fetus. The fetus is in a cephalic presentation. There is demonstrated cardiac activity with a heart rate of 148 bpm. There is a normal amniotic fluid volume. The largest amniotic fluid pocket measures 4.3 cm. The amniotic fluid index (CARLO) is 10.4 cm. The placenta is anterior in location and is not low lying. There are Grade 0 placental changes. The cervix measures 3.7 cm cm in length. US/OB Limited (No Biometrics) IMPRESSION: Single live intrauterine with heart rate of 148 bpm. CARLO is normal at 10.4 cm with largest pocket 4.3 cm Electronically Signed: Richard Stovall MD at 16:19 EDT , Service support ,
== END ==
PROVIDERS: PCP Internal Medicine; Visit Provider Obstetrics & Gynecology
DX: O24.011 Pre-existing type 1 diabetes mellitus, in pregnancy, first trimester (principal); Z3A.00 Weeks of gestation of pregnancy not specified
CPT/HCPCS: 76815

== ENCOUNTER 2020-12-10 14:30 | Outpatient (CLI) | payer MEDICAID, SELFPAY ==
[2020-12-10 14:08] VITALS: BMI 34.3
[2020-12-10 14:40] VITALS: BP 112/79; PULSE 90; TEMP 36.8
[2020-12-10] MEDS: 0.9% Normal Saline 1,000 ML 999 ML IV (15:00)
[2020-12-10 15:04] VITALS: BMI 35.6
[2020-12-10 15:49] LABS: Absolute Lymphocyte Count 2.27 X10^3/uL (0.83-4.51); Absolute Neutrophil Count 6.7 X10^3/uL (2.0-7.7); Basophil# 0.02 X10^3/uL; Basophil% 0.2 % (0-1); Eosinophil# 0.06 X10^3/uL; Eosinophils% 0.6 % (0-5); Hematocrit 34.8 % (37-47); Hemoglobin 11.9 g/dL (12.0-15.0); Lymphocyte # 2.27 X10^3/ul (0.83-4.51); Lymphocyte % 23.1 % (19-41); Mean Corp Hgb Conc 34.2 g/dL (32-36); Mean Corpuscular Hgb 31.3 pg (27.0-32.0); Mean Corpuscular Volume 91.6 fL (81-99); Mean Platelet Vol. 9.8 fl (6.2-12.0); Monocyte# 0.72 X10^3/uL; Monocyte% 7.3 % (0-10); NRBC Flagged by Analyzer 0 % (0-5); Neutrophil # 6.69 X10^3/uL (2.7-7.7); Platelet Count 152 K/mm3 (150-450); RBC Distribution Width CV 11.7 % (11.6-14.6); White Blood Count 9.8 K/mm3 (4.4-11.0)
[2020-12-10] MEDS: Betamethasone/Betamethasone 30 MG/5 ML Vial 12 MG IM (15:59)
[2020-12-10] MEDS: 0.9% Normal Saline 1,000 ML 150 ML IV (16:05)
--- NOTE | 2020-12-10 16:07 | US_ITS ---
STUDY: Ultrasound OB Biophysical Profile REASON FOR EXAM: Female, 30 years old RECURRENT LATE DECEL TECHNIQUE: Transabdominal PRIOR ULTRASOUND: None. FINDINGS: There is a single intrauterine fetus. The fetus is in a cephalic presentation. There is demonstrated cardiac activity with a heart rate of 111 bpm. There is a normal amniotic fluid volume. The amniotic fluid index (CARLO) is 15.9 cm. The placenta is anterior and not low-lying. There are Grade 1 placental changes. BIOPHYSICAL PROFILE (BPP): 12/12 -- Breathin/2. -- Movement: 2/2. -- Tone: 2/2. --CARLO: 2/2. US/Biophysical Prof W/O Non Stres IMPRESSION: Normal BPP. Electronically Signed: Nilson Vinson MD at 21:38 EDT Tel , Service support ,
[2020-12-10 16:11] LABS: Fibrinogen 500 mg/dl (203-444)
[2020-12-10 16:11] LABS: Bedside Glucose 136 mg/dL (70-110)
--- NOTE | 2020-12-10 17:20 | OB.TRI.HP_ITS ---
HPI - General HPI Narrative FARZANA BARRETT, is a 30 F who presents from the office with recurrent late decelerations. Patient was having a routine visit and upon NST that was being done due to type 1 diabetes she had four contractions and had late decelerations with three of the four. She denies any abdominal pain bleeding trauma or loss of fluid. She does not feel any regular contractions however the monitor she is having irritability. She states she does have some decreased movement. Maternal Data Information CARLEY Calculator Estimated Delivery Date Method Current WG Current Estimate 02/12/21 Ultrasound #1 30w 6d PFSH PFS Medical History (Updated 12/10/20 @ 18:[address] Samantha Ramirez MD) Arm fracture Depression Diabetes type 1, controlled Gestational thrombocytopenia Herpes genitalis History of tetanus, diphtheria, and acellular pertussis booster vaccination (Tdap) Hypothyroid Presence of insulin pump Type 1 diabetes mellitus affecting in second trimester, antepartum Home Medications Novolog U-100 Insulin aspart 100 unit/mL subcutaneous solution 100 unit SC DAILY #30 ml NS 06/10/20 [Rx Last Taken Unknown] insulin syringe,safetyneedle 0.3 mL 31 gauge x 15/64 #50 ea 06/10/20 [Rx Last Taken Unknown] insulin lispro 100 unit/mL subcutaneous solution 85 unit SC DAILY #30 ml 06/22/20 [Rx Last Taken Unknown] glucagon (human recombinant) 1 mg solution for injection 1 mg SC Q20M PRN #2 ea 06/25/20 [Rx Last Taken Unknown] promethazine 12.5 mg tablet 12.5 mg PO Q6H PRN #60 tablet 07/26/20 [Rx Last Taken 1 Day Ago ~12/09/20] FreeStyle Lite Meter #1 ea NS 08/13/20 [Rx Last Taken Unknown] blood sugar diagnostic #250 each 09/11/20 [Rx Last Taken Unknown] blood-glucose meter #1 each 09/11/20 [Rx Last Taken Unknown] levothyroxine 112 mcg PO DAILY 10/15/20 [History Last Taken 1 Day Ago ~12/09/20] lidocaine [Lidoderm] 1 patch TOPICAL DAILY #15 ea 10/30/20 [Rx Last Taken Unknown] lidocaine HCl 2 % mucosal jelly 1 applic TOPICAL TID PRN #30 ml 12/01/20 [Rx Last Taken Unknown] Allergy/AdvReac Type Severity Reaction Status Date / Time Penicillins Allergy Unknown Verified 12/10/20 14:08 Family History Grandfather Diabetes Mother Anemia Surgical History H/O removal of cyst Social History Smoking Status: Former smoker second hand exposure: Yes alcohol intake: current substance use type: does not use caffeine: Yes what type of physical activity do you participate in: none seatbelt use: sometimes do you feel safe at home: Yes additional social history: 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 History 2 Elective abortions Hx Para 1 Spontaneous abortions Hx # Term Pregnancies Ectopic pregnancies Hx # Pregnancies Multiple births # of living children Past Pregnancies Del. Date Name GA/Weeks Outcome Route Bth Weight Gen Labor Lgth Anesthesia Del [facility] Provider FOB 06/16/11 Adalberto 35 live - 6lbs 1oz Male 14 hours ep idural [facility] Jose Delivery Date: 06/16/11 Spontaneous labor at 35 weeks. Did NOT have diabetes during last . Melinda Shi Visit Details Expected Delivery Route/Plan Labor Preferences- CB/BF classes: [] labor support person: [] labor intervention preferences: [] pain management options preferred: [] cut cord/dad catch: [] : [] PP control planned: [] discussed possible routes of delivery and associated risks: [] special requests: [] Plans flu vaccine: [] tdap vaccine: [] rhogam: [] LARC form signed: [] Problem list reviewed and updated with the most current plan of care details and appropriate orders placed. Relevant counseling for the gestational age provided. Continue routine care and follow up unless otherwise noted in visit notes/problem list details OB Flowsheet Initial Weight: 190 lb Date -?-?-?-?-?-?-?-?-?-?-?-?- EGA Weight BP Urine Prot -?-?-?-?-?-?-?-?-?-?-?-?- Glucose FHR FuHt Pres Dilation -?-?-?-?-?-?-?-?-?-?-?-?- Effaced St Visit Note 08/12/20 -?-?-?-?-?-?-?-?-?-?-?-?- 13w 5d 190 lb (+0 oz) 108/70 Negative -?-?-?-?-?-?-?-?-?-?-?-?- Negative 150 -?-?-?-?-?-?-?-?-?-?-?-?- SM- no vb lof cr maping, will get bloodwork today. s/p mfm consult and doesn't wnat t go back unless unable to deliver in monique. plan scans at [facility] and diabetes comanagement with Dr Sky. patient getting testing supplies and meter. optho consult ordered, ekg, plan 16 week progesterone injections. 09/01/20 -?-?-?-?-?-?-?-?-?-?-?-?- 16w 4d 194 lb 6 oz (+4 lb 6 oz) 120/76 -?-?-?-?-?-?-?-?-?-?-?-?- 155 -?-?-?-?-?-?-?-?-?-?-?-?- GP - no cramping or bleeding. +FM. BGTs better controlled on pump. PRR. 09/27/20 -?-?-?-?-?-?-?-?-?-?-?-?- 20w 2d 195 lb 8 oz (+5 lb 8 oz) 102/68 Negative -?-?-?-?-?-?-?-?-?-?-?-?- Negative -?-?-?-?-?-?-?-?-?-?-?-?- 10/27/20 -?-?-?-?-?-?-?-?-?-?-?-?- 24w 4d 200 lb 4 oz (+10 lb 4 oz) 116/66 -?-?-?-?-?-?-?-?-?-?-?-?- 150 -?-?-?-?-?-?-?-?-?-?-?-?- GP - no LOF, VB, DFM, ctx. BGTs controlled on insulin pump. 11/22/20 -?-?-?-?-?-?-?-?-?-?-?-?- 28w 2d 207 lb (+17 lb) 104/72 -?-?-?-?-?-?-?-?-?-?-?-?- 140 -?-?-?-?-?-?-?-?-?-?-?-?- SM- no vb lof cr reyes, BS managed by dr sky. starting twice [employer] [facility] and [employer]. cbc ordered 11/25/20 -?-?-?-?-?-?-?-?-?-?-?-?- 28w 5d 204 lb 4 oz (+14 lb 4 oz) 98/60 Trace -?-?-?-?-?-?-?-?-?-?-?-?- Negative 140 -?-?-?-?-?-?-?-?-?-?-?-?- -NST only reac tive. Tdap given, CBC and thyroid labs today 11/30/20 -?-?-?-?-?-?-?-?-?-?-?-?- 29w 3d 209 lb 2 oz (+19 lb 2 oz) 120/76 -?-?-?-?-?-?-?-?-?--?-?-?- 140 -?-?-?-?-?-?-?-?-?-?-?-?- -NST only reac tive 12/03/20 -?-?-?-?-?-?-?-?-?-?-?-?- 29w 6d 208 lb 6 oz (+18 lb 6 oz) 110/70 Negative -?-?-?-?-?-?-?-?-?-?-?-?- 500 g/dL 150 29 -?-?-?-?-?-?-?-?-?-?-?-?- GP - no LOF, VB, dFM, ctx. BGTs doing better now that pump is working well. Moving next weekend. 12/08/20 -?-?-?-?-?-?-?-?-?-?-?-?- 30w 4d 207 lb 4 oz (+17 lb 4 oz) 100/80 Negative -?-?-?-?-?-?-?-?-?-?-?-?- Negative 140 130 -?-?-?-?-?-?-?-?-?-?-?-?- GP - no LOF, VB, DFM, ctx. LARC form signed - undecided on control 12/10/20 -?-?-?-?-?-?-?-?-?-?-?-?- 30w 6d 208 lb (+18 lb) -?-?-?-?-?-?-?-?-?-?-?-?- -?-?-?-?-?-?-?-?-?-?-?-?- SM- 2 late decel s on the NST sent to [facility] for evaluation 12/10/20 -?-?-?-?-?-?-?-?-?-?-?-?- 30w 6d 207 lb 10.807 oz (+17 lb 10.807 oz) 112/79 -?-?-?-?-?-?-?-?-?-?-?-?- -?-?-?-?-?-?-?-?-?-?-?-?- ROS Constitutional Constitutional: Reports systems reviewed and no addt'l complaints, except as documented and as per HPI ENT HEENT: Reports systems reviewed and no addt'l complaints, except as documented Cardiovascular Cardiovascular: Reports systems reviewed and no addt'l complaints, except as documented Respiratory/Chest Respiratory/Chest: Reports systems reviewed and no addt'l complaints, except as documented Gastrointestinal Gastrointestinal: Reports as per HPI Genitourinary Genitourinary: Reports as per HPI Musculoskeletal Musculoskeletal: Reports systems reviewed and no addt'l complaints, except as documented Integumentary Integumentary: Reports systems reviewed and no addt'l complaints, except as documented Neurologic Neurologic: Reports systems reviewed and no addt'l complaints, except as documented Physical Exam Const alert, oriented x3 and no apparent distress HEENT Head and Scalp: normocephalic and atraumatic Neck full ROM and no lymphadenopathy Chest inspection of chest normal Resp normal respiratory effort GI GI Narrative: gravid, abdomen nontender, AGA Manual OB Exam: dilated, effaced 0 and station high NST FHR Rate Baby A Baseline: 140 Variability:: Moderate Accelerations:: 10 x 10 Decelerations:: Variable (Isolated intermittent) NST Reactive:: Yes FHR Category:: Category I (Overall) Uterine Activity:: irregular and irritability Assessment & Plan (1) Maternal care for abnormalities of the heart rate or rhythm, third trimester, fetus 1: COMMENT: late decels on NST in office 12/10. (2) Gestational thrombocytopenia: COMMENT: repeat CBC 36 wks (3) History of tetanus, diphtheria, and acellular pertussis booster vaccination (Tdap): COMMENT: 11/25/20 (4) HPV in female: COMMENT: neg pap; needs repeat in 1 year 07/2021 (5) Chlamydia infection affecting : COMMENT: + 07/07/20. ADAM at next visit- NEGATIVE 09/01/20 (6) Supervision of high risk in first trimester: COMMENT: PRR CARLEY 02/12/21 Boy! Indio Marrero PC:Adalberto, BF:DANDRE (7) History of delivery: COMMENT: Spontaneous labor at 35 weeks in last . Compliant with manuel. (8) Herpes simplex infection in mother during : QUALIFIERS: Trimester: first trimester Qualified Code(s): O98.511 - Other viral diseases complicating , first trimester; B00.9 - Herpesviral infection, unspecified COMMENT: 10 years since last outbreak. Plan Valtrex at 36 weeks. (9) : QUALIFIERS: Weeks of gestation: 29 weeks Qualified Code(s): Z3A.29 - 29 weeks gestation of COMMENT: NIPT- low risk and carrier screening- neg plan afp screen. NL 1st trimester US. Anatomy nl but needs echo. 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 Sky. On Synthroid. (11) Type 1 diabetes mellitus affecting in first trimester, antepartum: COMMENT: class B diabetes. Did not have diabetes during last . Managed by Dr. Sky. Neg experience with MFM - declines further visits unless absolutely needed. Last A1c 6.5. 2x/wk NSTs with weekly AFIs starting 28w. Growths q4w at 28w. Discussed timing of delivery based on glycemic control, CARLO borderline high PLAN: Patient admitted to [facility] for monitoring secondary to late decelerations. Celestone given for prematurity. BPP 8 out of 8. Repeat steroid dose tomorrow. Endocrine managing insulin pump. Charges/Coding Multi Select Codes Visit Charges Office Visit/Consults: 20581 OV L3 Est Urinary/Genital Urinary/Genital CPT Codes: 24825-37 non-stress test Interp
[2020-12-10 19:32] VITALS: BP 112/60; PULSE 100; O2SAT 97
[2020-12-10 19:33] VITALS: TEMP 36.4; O2SAT 98
--- NOTE | 2020-12-10 20:06 | NURSING ---
scds applied upon return from [facility]
[2020-12-10 20:44] VITALS: BP 112/74; PULSE 86
[2020-12-10 22:54] VITALS: BP 124/64; PULSE 102; PULSE 93; TEMP 36.4; O2SAT 96; O2SAT 97
[2020-12-11 01:41] VITALS: BP 104/59; PULSE 102; PULSE 110; TEMP 36.4; O2SAT 97
[2020-12-11 05:24] VITALS: BP 85/49; PULSE 111; TEMP 36.6
[2020-12-11 05:25] VITALS: BP 86/50; PULSE 111
[2020-12-11 05:30] VITALS: BP 88/54; PULSE 104
[2020-12-11 05:31] VITALS: O2SAT 98
[2020-12-11 05:32] VITALS: BP 96/54; PULSE 106
--- NOTE | 2020-12-11 06:40 | PN.OBGYN_ITS ---
Subjective Subjective No vaginal bleeding loss of fluid admits good movement and regular contractions. tracing reviewed and heart rate 130 moderate variability reactive isolated variable deceleration overall reassuring category 1 tracing toco irritability contractions intermittently. Objective Data Objective Data Vital Signs: Vital Signs Temp Pulse BP Pulse Ox 97.9 F 106 H 96/54 L 98 12/11/20 05:24 12/11/20 05:32 12/11/20 05:32 12/11/20 05:31 Weight: 207 lb 10.807 oz Body Mass Index (BMI) 35.6 Intake & Output: Intake and Output for Last 24 Hours 12/09/20 12/10/20 12/11/20 23:59 23:59 23:59 Intake Total 3088 / 3088 Output Total 800 / 800 Balance 2288 / 2288 Lab / Micro Data Result Diagrams: 12/10/20 15:00 Labs: Laboratory Results - last 24 hr 12/10/20 15:00: WBC 9.8, RBC 3.80 L, Hgb 11.9 L, Hct 34.8 L, MCV 91.6, MCH 31.3, MCHC 34.2, RDW Std Deviation 39.0, RDW Coeff of Mylene 11.7, Plt Count 152, MPV 9.8, Immature Gran % (Auto) 0.800, Neut % (Auto) 68.0, Lymph % (Auto) 23.1, [place] % (Auto) 7.3, Eos % (Auto) 0.6, Baso % (Auto) 0.2, Absolute Neuts (auto) 6.7, Absolute Lymphs (auto) 2.27, Nucleated RBC % 0 12/10/20 15:00: Blood Type Cancelled, Antibody Screen Cancelled 12/10/20 15:00: Fibrinogen 500 H 12/10/20 15:55: POC Glucose 136 H Radiography Diagnostic Testing: Radiology Impression Biophysical Profile Ultrasound 12/10/20 16:07 IMPRESSION: Normal BPP. Electronically Signed: Nilson Vinson MD at 21:38 EDT Tel , Service support , ROS Constitutional Constitutional: Reports systems reviewed and no addt'l complaints, except as documented and as per HPI ENT HEENT: Reports systems reviewed and no addt'l complaints, except as documented Cardiovascular Cardiovascular: Reports systems reviewed and no addt'l complaints, except as documented Respiratory/Chest Respiratory/Chest: Reports systems reviewed and no addt'l complaints, except as documented Gastrointestinal Gastrointestinal: Reports as per HPI Genitourinary Genitourinary: Reports as per HPI Musculoskeletal Musculoskeletal: Reports systems reviewed and no addt'l complaints, except as documented Integumentary Integumentary: Reports systems reviewed and no addt'l complaints, except as documented Neurologic Neurologic: Reports systems reviewed and no addt'l complaints, except as documented Physical Exam Const alert, oriented x3 and no apparent distress HEENT Head and Scalp: normocephalic and atraumatic Neck full ROM and no lymphadenopathy Chest inspection of chest normal Resp normal respiratory effort GI GI Narrative: gravid, abdomen nontender, AGA Manual OB Exam: dilated, effaced and station NST FHR Rate Baby A Baseline: 130 Variability:: Moderate Accelerations:: 15 x 15 Decelerations:: None NST Reactive:: Yes FHR Category:: Category I Uterine Activity:: irritability Assessment & Plan (1) Maternal care for abnormalities of the heart rate or rhythm, third trimester, fetus 1: COMMENT: late decels on NST in office 12/10. BPP 8 out of 8 monitored overnight, reassuring. PLAN: Status post prolonged monitoring. Plan repeat Celestone dose this afternoon at 24 hours. (2) Diabetes type 1, controlled: QUALIFIERS: Diabetes mellitus complication status: with hyperglycemia Qualified Code(s): E10.65 - Type 1 diabetes mellitus with hyperglycemia COMMENT: insulin pump with dr sky PLAN: Dr. Sky managing blood sugars, elevated overnight will contact her this morning to increase insulin (3) Gestational thrombocytopenia: COMMENT: repeat CBC 36 wks (4) Herpes simplex infection in mother during : QUALIFIERS: Trimester: first trimester Qualified Code(s): O98.511 - Other viral diseases complicating , first trimester; B00.9 - Herpesviral infection, unspecified COMMENT: 10 years since last outbreak. Plan Valtrex at 36 weeks. (5) History of delivery: COMMENT: Spontaneous labor at 35 weeks in last . Compliant with manuel. (6) Supervision of high risk in first trimester: COMMENT: PRR CARLEY 02/12/21 Boy! [place] Marrero PC:Adalberto, BF:CJ (7) Chlamydia infection affecting : COMMENT: + 07/07/20. ADAM at next visit- NEGATIVE 09/01/20 (8) HPV in female: COMMENT: neg pap; needs repeat in 1 year 07/2021 (9) : QUALIFIERS: Weeks of gestation: 29 weeks Qualified Code(s): Z3A.29 - 29 weeks gestation of COMMENT: NIPT- low risk and carrier screening- neg plan afp screen. NL 1st trimester US. Anatomy nl but needs echo. growth 84% (10) Type 1 diabetes mellitus affecting in first trimester, antepartum: COMMENT: class B diabetes. Did not have diabetes during last . Managed by Dr. Sky. Neg experience with MFM - declines further visits unless absolutely needed. Last A1c 6.5. 2x/wk NSTs with weekly AFIs starting 28w. Growths q4w at 28w. 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 Sky. On Synthroid. Charges/Coding Multi Select Codes Visit Charges Observation E&M Codin Observation care discharge Urinary/Genital Urinary/Genital CPT Codes: 89233-07 non-stress test Interp
[2020-12-11] MEDS: Betamethasone/Betamethasone 30 MG/5 ML Vial 12 MG IM (16:01)
== END 2020-12-11 08:30 | disposition home or self-care (01) ==
LOC: WPOUT 14:39 → WP 14:39
PROVIDERS: PCP Internal Medicine; Visit Provider Obstetrics & Gynecology
DX: O36.8390 Maternal care for abnormalities of the fetal heart rate or rhythm, unspecified trimester, not applicable or unspecified (principal); O24.019 Pre-existing type 1 diabetes mellitus, in pregnancy, unspecified trimester; E10.9 Type 1 diabetes mellitus without complications; Z3A.00 Weeks of gestation of pregnancy not specified
CPT/HCPCS: 96360; 96361; 36415; 59025; 59050; 76819; 82962; 85025; 85384; 96372; 99218; J7030; G0378; J0702

== ENCOUNTER 2020-12-11 15:45 | Outpatient (CLI) | payer MEDICAID, SELFPAY ==
[2020-12-10 15:04] VITALS: BMI 35.6
[2020-12-11 16:03] VITALS: BP 110/59; PULSE 110; TEMP 36.4; O2SAT 97
--- NOTE | 2020-12-14 18:38 | OB.TRI.PN ---
Progress Notes Date of Service: 12/11/20 Progress Note: Patient presents for second dose of celestone. Given without complication. No other complaints
== END 2020-12-11 16:05 | disposition home or self-care (01) ==
LOC: WPOUT 15:53 → WP 16:10
PROVIDERS: PCP Internal Medicine; Referring Provider Obstetrics & Gynecology; Visit Provider Obstetrics & Gynecology
DX: R69 Illness, unspecified (principal)

== ENCOUNTER 2020-12-14 14:18 | Outpatient (CLI) | payer MEDICAID, SELFPAY ==
[2020-12-14 13:13] VITALS: BMI 35.9
[2020-12-14 14:31] VITALS: BP 118/79; PULSE 97
[2020-12-14 14:35] VITALS: TEMP 36.4
[2020-12-14 14:36] VITALS: BMI 35.6
--- NOTE | 2020-12-15 13:20 | OB.TRI.PN_ITS ---
Progress Notes Date of Service: 12/14/20 Progress Note: Patient presents for triage evaluation secondary to rule-out labor. Patient seen in the office and was found to be 1 cm dilated but was not rox on the monitor. Did have copious vaginal discharge so vaginal cultures and STI testing were not performed. Patient was monitored in triage for 2 hours and was found to not be rox. Cervix remained 1 cm on chart recheck. FHT: Moderate variability reactive no decelerations category I tracing [place]: No contractions Assessment and plan: Reactive NST, reassuring maternal and status patient discharged to home to follow-up next scheduled visit. See problem list details for additional plan information. Charges/Coding Procedures Urinary/Genital [id number]: 24695-04 non-stress test Interp
[2020-12-16 20:08] LABS: Chlamydia By Nucleic Acid AMP Negative (Negative)
[2020-12-16 20:20] LABS: Gonococcus By Nucleic Acid AMP Negative (Negative)
== END 2020-12-14 17:07 | disposition home or self-care (01) ==
LOC: WPOUT 14:27 → WP 14:28
PROVIDERS: Nurse Practitioner Women's Health; PCP Internal Medicine; Visit Provider Obstetrics & Gynecology
DX: Z34.90 Encounter for supervision of normal pregnancy, unspecified, unspecified trimester (principal)
CPT/HCPCS: 59025; 59050; 87070; 87205; 87491; 87591; 99218; G0378

== ENCOUNTER → 2020-12-15 12:10 | Outpatient (CLI) | payer MEDICAID, SELFPAY ==
[2020-09-27 14:06] VITALS: BMI 32.5
[2020-12-14 14:36] VITALS: BMI 35.6
--- NOTE | 2020-12-15 12:13 | US_ITS ---
STUDY: SECOND AND THIRD TRIMESTER OBSTETRICAL ULTRASOUND - LIMITED REASON FOR EXAM: Female, 30 years old CARLO LMP: 05/01/2020. PRIOR ULTRASOUND: Comparison is made with prior examination 12/10/2020. TECHNIQUE: Transabdominal TECHNICAL QUALITY: Adequate. FINDINGS: There is a single intrauterine fetus. The fetus is in a cephalic presentation. There is demonstrated cardiac activity with a heart rate of 137 bpm. There is a normal amniotic fluid volume. The largest amniotic fluid pocket measures 6.1 cm. The amniotic fluid index (CARLO) is 13.1 cm. The placenta is anterior in location and is not low lying. There are Grade 1 placental changes. The cervix measures 3.5 cm in length. BIOMETRY: Age by LMP: 32 weeks, 4 days. CARLEY by LMP: 02/05/2021. US/OB Limited (No Biometrics) IMPRESSION: Normal amniotic fluid. Electronically Signed: Phong Cunningham MD at 15:46 EDT , Service support ,
== END ==
PROVIDERS: PCP Internal Medicine; Referring Provider Obstetrics & Gynecology; Visit Provider Obstetrics & Gynecology
DX: O24.011 Pre-existing type 1 diabetes mellitus, in pregnancy, first trimester (principal); Z3A.00 Weeks of gestation of pregnancy not specified
CPT/HCPCS: 76815

== ENCOUNTER → 2020-12-22 12:57 | Outpatient (CLI) | payer MEDICAID, SELFPAY ==
[2020-09-27 14:06] VITALS: BMI 32.5
--- NOTE | 2020-12-22 13:00 | US_ITS ---
STUDY: SECOND AND THIRD TRIMESTER OBSTETRICAL ULTRASOUND REASON FOR EXAM: Female, 30 years old growth LMP: 05/01/2020. TECHNIQUE: Transabdominal TECHNICAL QUALITY: Adequate. PRIOR ULTRASOUND: Comparison is made with prior study 12/15/2020. FINDINGS: There is a single intrauterine fetus. The fetus is in a cephalic presentation. There is demonstrated cardiac activity with a heart rate of 140 bpm. There is a normal amniotic fluid volume. The largest amniotic fluid pocket measures 4.1 cm. The amniotic fluid index (CARLO) is 13.12 cm. The placenta is anterior in location and is not low lying. There are Grade 1 placental changes. The cervix measures 4.6 on the in length. The adnexal regions are not visualized. BIOMETRY: BPD: 8.4 cm: 33 weeks, 5 days HC: 30.61 cm: 34 weeks, 0 days AC: 33.06 cm: 36 weeks, 6 days FL: 6.19 cm: 32 weeks, 0 days CI: 80% FL/BPD: 74% FL/HC: FL/AC: 18% HC/AC: 0.93 age by current US: 33 weeks, 6 days. CARLEY by current US: 02/03/2021. Estimated weight: 2631 grams, +/- 395 grams, 87 %. age by prior US: 33 weeks, 6 days. CARLEY by prior US: 02/03/2021. Age by LMP: 33 weeks, 4 days. CARLEY by LMP: 02/05/2021. US/OB Limited With Biometrics IMPRESSION: Single live intrauterine gestation with a mean gestational age of 33 weeks and 6 days. Electronically Signed: Phong Cunningham MD at 15:06 EDT , Service support ,
== END ==
PROVIDERS: PCP Internal Medicine; Referring Provider Obstetrics & Gynecology; Visit Provider Obstetrics & Gynecology
DX: O24.011 Pre-existing type 1 diabetes mellitus, in pregnancy, first trimester (principal)
CPT/HCPCS: 76816

== ENCOUNTER 2020-12-27 10:30 | Inpatient (IN) | payer MEDICAID, SELFPAY ==
[2020-12-27] VITALS (32 sets, daily range): BP systolic 81–133; BP diastolic 47–89; PULSE 75–153; TEMP 36.2–37.2; O2SAT 95–98; BMI 35.4
[2020-12-27 10:59] LABS: ROM Internal Control Test YES-OK TO RESULT pt. (Internal QC)
[2020-12-27 11:01] LABS: ROM Patient Test POSITIVE (Negative)
[2020-12-27 11:06] LABS: Bedside Glucose 98 mg/dL (70-110)
[2020-12-27 11:35] LABS: Absolute Lymphocyte Count 3.02 X10^3/uL (0.83-4.51); Basophil# 0.02 X10^3/uL; Basophil% 0.2 % (0-1); Eosinophil# 0.03 X10^3/uL; Eosinophils% 0.3 % (0-5); Hemoglobin 12.3 g/dL (12.0-15.0); Lymphocyte # 3.02 X10^3/ul (0.83-4.51); Lymphocyte % 27.8 % (19-41); Mean Corp Hgb Conc 34.2 g/dL (32-36); Mean Corpuscular Hgb 31.1 pg (27.0-32.0); Mean Corpuscular Volume 91.1 fL (81-99); Mean Platelet Vol. 10.2 fl (6.2-12.0); Monocyte# 0.76 X10^3/uL; NRBC Flagged by Analyzer 0 % (0-5); Neutrophil # 6.95 X10^3/uL (2.7-7.7); Platelet Count 174 K/mm3 (150-450); RBC Distribution Width CV 11.8 % (11.6-14.6); RBC Distribution Width SD 39.4 fl (35.1-43.9); Red Blood Count 3.95 M/mm3 (4.2-5.4); White Blood Count 10.9 K/mm3 (4.4-11.0)
[2020-12-27] MEDS: Azithromycin 250 MG Tablet 500 MG PO (12:18)
[2020-12-27] MEDS: Lactated Ringers 1,000 ML 15 ML IV ×2 (12:22→16:46)
[2020-12-27] MEDS: Prenatal Vits Tablet 1 TABLET PO (12:22)
[2020-12-27] MEDS: 0.9% Saline Lock 10 ML Syringe IV ×3 (12:36→21:15)
[2020-12-27 13:02] LABS: Mucous, Urine 0 SEEN /hpf (<or=2+)
[2020-12-27 13:10] LABS: Color, Urine Yellow (Yellow); Glucose, Dipstick Normal (Normal); Ketone-Dipstick Negative (Negative); Leukocyte Esterase-Dipstick 500 /ul (Negative); Nitrite-Dipstick Positive (Negative); Occult Blood-Urine 250 /ul (Negative); Protein-Dipstick 30 mg/dl (Negative); Urine Bilirubin Dipstick Negative (Negative); Urine Clarity Sl. Cloudy (Clear); Urine Urobilinogen Normal (Normal); Urine pH 6.5 (5.0 - 8.0)
[2020-12-27 13:12] LABS: Group B Strep DNA By PCR Negative (Negative); Internal Control PASS; Probe Check PASS; Specimen Processing Control PASS
[2020-12-27 13:17] LABS: Bacteria 2+ /hpf (None Seen); Red Blood Cells-Urine 25-50 SEEN /hpf (0-5); Squamous Epithelial Cells - UA 0-5 SEEN /hpf (5-10); White Blood Cells 50-100 SEEN /hpf (0-5)
[2020-12-27 13:30] LABS: Amphetamine Urine VISTA NEGATIVE (<1000 ng/mL); Barbiturate Urine VISTA NEGATIVE (< 200 ng/mL); Benzodiazepine Urine VISTA NEGATIVE (< 200 ng/mL); Cocaine Urine VISTA NEGATIVE (< 300 ng/mL); Ecstacy Urine VISTA NEGATIVE (< 500 ng/mL); Methadone Urine VISTA NEGATIVE (< 300 ng/mL); PCP Urine VISTA NEGATIVE (< 25 ng/mL); THC Urine VISTA NEGATIVE (< 50 ng/mL); Vista UDS pH Range 6
[2020-12-27] MEDS: Lactated Ringers 500 ML 999 ML IV ×3 (14:16→19:27)
--- NOTE | 2020-12-27 15:38 | HP.PCM.OB_ITS ---
HPI - General General Date of Admission: 12/27/20 HPI Narrative FARZANA BARRETT, is a 30 F who presents with clear rupture membranes starting at 730 this morning. She denies any bleeding admits good movement and has been having regular contractions feeling the mostly in her back. She is 2 cm. She has had a complicated by type 1 diabetes that has been managed with an insulin pump. She had received steroids 2 weeks ago after being admitted for observation due to heart rate decelerations while being monitored in the office. Patient denies any overt infection symptoms. Positive UTI was seen on UA upon admission. 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 Tracing improved but we will proceed with delivery and augmentation of labor if needed. Maternal Data Information CARLEY Calculator Estimated Delivery Date Method Current WG Current Estimate 02/12/21 Ultrasound #1 33w 2d [facility] Medical History (Updated 12/27/20 @ 17:[address] Samantha Ramirez MD) Arm fracture Depression Diabetes in undelivered Diabetes type 1, controlled Gestational thrombocytopenia Herpes genitalis History of pre-term labor History of premature rupture of membranes (PPROM) History of tetanus, diphtheria, and acellular pertussis booster vaccination (Tdap) Hypothyroid depression Presence of insulin pump Type 1 diabetes mellitus affecting in second trimester, antepartum Home Medications Novolog U-100 Insulin aspart 100 unit/mL subcutaneous solution 100 unit SC DAILY #30 ml NS 06/10/20 [Rx Last Taken Unknown] insulin syringe,safetyneedle 0.3 mL 31 gauge x 15/64 #50 ea 06/10/20 [Rx Last Taken Unknown] insulin lispro 100 unit/mL subcutaneous solution 85 unit SC DAILY #30 ml 06/22/20 [Rx Last Taken Unknown] glucagon (human recombinant) 1 mg solution for injection 1 mg SC Q20M PRN #2 ea 06/25/20 [Rx Last Taken Unknown] promethazine 12.5 mg tablet 12.5 mg PO Q6H PRN #60 tablet 07/26/20 [Rx Last Taken 1 Day Ago ~12/09/20] FreeStyle Lite Meter #1 ea NS 08/13/20 [Rx Last Taken Unknown] blood sugar diagnostic #250 each 09/11/20 [Rx Last Taken Unknown] blood-glucose meter #1 each 09/11/20 [Rx Last Taken Unknown] levothyroxine 112 mcg PO DAILY 10/15/20 [History Last Taken 12/14/20 11:00] lidocaine [Lidoderm] 1 patch TOPICAL DAILY #15 ea 10/30/20 [Rx Last Taken Unknown] lidocaine HCl 2 % mucosal jelly 1 applic TOPICAL TID PRN #30 ml 12/01/20 [Rx Last Taken Unknown] Allergy/AdvReac Type Severity Reaction Status Date / Time Penicillins Allergy Intermediate Unknown Verified 12/24/20 14:47 Family History Grandfather Diabetes Mother Anemia Surgical History H/O removal of cyst Social History Smoking Status: Former smoker second hand exposure: Yes alcohol intake: current substance use type: does not use caffeine: Yes what type of physical activity do you participate in: none seatbelt use: sometimes do you feel safe at home: Yes additional social history: 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 History 2 Elective abortions Hx Para 1 Spontaneous abortions Hx # Term Pregnancies Ectopic pregnancies Hx # Pregnancies Multiple births # of living children Past Pregnancies Del. Date Name GA/Weeks Outcome Route Bth Weight Gen Labor Lgth Anesthesia [facility] Provider FOB 06/16/11 Adalberto 35 live - 6lbs 1oz Male 14 hours ep idural [facility] Jose Delivery Date: 06/16/11 Spontaneous labor at 35 weeks. Did NOT have diabetes during last . Melinda Shi Visit Details Expected Delivery Route/Plan Labor Preferences- CB/BF classes: [] labor support person: [] labor intervention preferences: [] pain management options preferred: [] cut cord/dad catch: [] : [] PP control planned: [] discussed possible routes of delivery and associated risks: [] special requests: [] Plans flu vaccine: [] tdap vaccine: [] rhogam: [] LARC form signed: [] Problem list reviewed and updated with the most current plan of care details and appropriate orders placed. Relevant counseling for the gestational age provided. Continue routine care and follow up unless otherwise noted in visit notes/problem list details OB Flowsheet Initial Weight: 190 lb Date -?-?-?-?-?-?-?-?-?-?-?-?- EGA Weight BP Urine Prot -?-?-?-?-?-?-?-?-?-?-?-?- Glucose FHR FuHt Pres Dilation -?-?-?-?-?-?-?-?-?-?-?-?- Effaced St Visit Note 08/12/20 -?-?-?-?-?-?-?-?-?-?-?-?- 13w 5d 190 lb (+0 oz) 108/70 Negative -?-?-?-?-?-?-?-?-?-?-?-?- Negative 150 -?-?-?-?-?-?-?-?-?-?-?-?- SM- no vb lof cr maping, will get bloodwork today. s/p mfm consult and doesn't wnat t go back unless unable to deliver in [place]. plan scans at [facility] and diabetes comanagement with Dr Sky. patient getting testing supplies and meter. optho consult ordered, ekg, plan 16 week progesterone injections. 09/01/20 -?-?-?-?-?-?-?-?-?-?-?-?- 16w 4d 194 lb 6 oz (+4 lb 6 oz) 120/76 -?-?-?-?-?-?-?-?-?-?-?-?- 155 -?-?-?-?-?-?-?-?-?-?-?-?- GP - no cramping or bleeding. +FM. BGTs better controlled on pump. PRR. 09/27/20 -?-?-?-?-?-?-?-?-?-?-?-?- 20w 2d 195 lb 8 oz (+5 lb 8 oz) 102/68 Negative -?-?-?-?-?-?-?-?-?-?-?-?- Negative -?-?-?-?-?-?-?-?-?-?-?-?- 10/27/20 -?-?-?-?-?-?-?-?-?-?-?-?- 24w 4d 200 lb 4 oz (+10 lb 4 oz) 116/66 -?-?-?-?-?-?-?-?-?-?-?-?- 150 -?-?-?-?-?-?-?-?-?-?-?-?- GP - no LOF, VB, DFM, ctx. BGTs controlled on insulin pump. 11/22/20 -?-?-?-?-?-?-?-?-?-?-?-?- 28w 2d 207 lb (+17 lb) 104/72 -?-?-?-?-?-?-?-?-?-?-?-?- 140 -?-?-?-?-?-?-?-?-?-?-?-?- SM- no vb lof cr maping, BS managed by dr sky. starting twice [facility] cbc ordered 11/25/20 -?-?-?--?-?-?-?-?-?-?-?-?- 28w 5d 204 lb 4 oz (+14 lb 4 oz) 98/60 Trace -?-?-?-?-?-?-?-?-?-?-?-?- Negative 140 -?-?-?-?-?-?-?-?-?-?-?-?- -NST only reac tive. Tdap given, CBC and thyroid labs today 11/30/20 -?-?-?-?-?-?-?-?-?-?-?-?- 29w 3d 209 lb 2 oz (+19 lb 2 oz) 120/76 -?-?-?-?-?-?-?-?-?-?-?-?- 140 -?-?-?-?-?-?-?-?-?-?-?-?- MH-NST only reac tive 12/03/20 -?-?-?-?-?-?-?-?-?-?-?-?- 29w 6d 208 lb 6 oz (+18 lb 6 oz) 110/70 Negative -?-?-?-?-?-?-?-?-?-?-?-?- 500 g/dL 150 29 -?-?-?-?-?-?-?-?-?-?-?-?- GP - no LOF, VB, dFM, ctx. BGTs doing better now that pump is working well. Moving next weekend. 12/08/20 -?-?-?-?-?-?-?-?-?-?-?-?- 30w 4d 207 lb 4 oz (+17 lb 4 oz) 100/80 Negative -?-?-?-?-?-?-?-?-?-?-?-?- Negative 140 130 -?-?-?-?-?-?-?-?-?-?-?-?- GP - no LOF, VB, DFM, ctx. LARC form signed - undecided on control 12/10/20 -?-?-?-?-?-?-?-?-?-?-?-?- 30w 6d 208 lb (+18 lb) -?-?-?-?-?-?-?-?-?-?-?-?- -?-?-?-?-?-?-?-?-?-?-?-?- SM- 2 late decel s on the NST sent to Ad[facility] pollack for evaluation 12/10/20 -?-?-?-?-?-?-?-?-?-?-?-?- 31w 0d 207 lb 10.807 oz (+17 lb 10.807 oz) 112/79 112/60 112/74 124/64 124/64 104/59 104/59 85/49 86/50 88/54 96/54 -?-?-?-?-?-?-?-?-?-?-?-?- -?-?-?-?-?-?-?-?-?-?-?-?- 12/14/20 -?-?-?-?-?-?-?-?-?-?-?-?- 31w 3d 209 lb 4 oz (+19 lb 4 oz) 128/68 Trace -?-?-?-?-?-?-?-?-?-?-?-?- Negative 140 Cephalic 1 -?-?-?-?-?-?-?-?-?-?-?-?- 30 -4 MH-reactiv e NST. c/o vag discharge, irritation. See exam. To for further monitoring. 12/16/20 -?-?-?-?-?-?-?-?-?-?-?-?- 31w 5d 208 lb (+18 lb) 120/84 -?-?-?-?-?-?-?-?-?-?-?-?- 140 Cephalic 1 -?-?-?-?-?-?-?-?-?-?-?-?- 30 -4 GP - no LO F, VB, DFM, ctx. BGTs overall well controlled. Still having back pain. Cervix unchanged. PTL precautions reviewed. 12/22/20 -?-?-?-?-?-?-?-?-?-?-?-?- 32w 4d 206 lb 6 oz (+16 lb 6 oz) 120/82 -?-?-?-?-?-?-?-?-?-?-?-?- 150 32 Cephalic 1 -?-?-?-?-?-?-?-?-?-?-?-?- GP - no LOF, VB, dFM. Still having irregular ctx - not feeling ctx now. NST reactive. Cervix unchanged. PTL precautions reviewed. 12/24/20 -?-?-?-?-?-?-?-?-?-?-?-?- 32w 6d 207 lb 6 oz (+17 lb 6 oz) 126/70 -?-?-?-?-?-?-?-?-?-?-?-?- 140 -?-?-?-?-?-?-?-?-?-?-?-?- GP - NST only. R eactive. 12/27/20 -?-?-?-?-?-?-?-?-?-?-?-?- 33w 2d 206 lb 9.17 oz (+16 lb 9.17 oz) 120/85 110/81 118/80 81/47 113/78 116/75 120/82 30 mg/dl (Negative) H -?-?-?-?-?-?-?-?-?-?-?-?- -?-?-?-?-?-?-?-?-?-?-?-?- NST FHR Rate Baby A Baseline: 150 Variability:: Minimal and Moderate Accelerations:: 15 x 15 Decelerations:: None and Late (few isolated, resolved but positive spontaneous [employer]ADER) NST Reactive:: Yes FHR Category:: Category I and Category II (intermittent) Uterine Activity:: q3-5 ROS Constitutional Constitutional: Reports systems reviewed and no addt'l complaints, except as documented ENT HEENT: Reports systems reviewed and no addt'l complaints, except as documented Cardiovascular Cardiovascular: Reports systems reviewed and no addt'l complaints, except as documented Respiratory/Chest Respiratory/Chest: Reports systems reviewed and no addt'l complaints, except as documented Gastrointestinal Gastrointestinal: Reports systems reviewed and no addt'l complaints, except as documented and nausea; Denies abdominal pain Genitourinary Genitourinary: Reports systems reviewed and no addt'l complaints, except as documented, contractions Details: present and frequency (regular ) and movement Details: present Musculoskeletal Musculoskeletal: Reports systems reviewed and no addt'l complaints, except as documented Integumentary Integumentary: Reports as per HPI Neurologic Neurologic: Reports systems reviewed and no addt'l complaints, except as documented Endocrine Endocrinology: Reports systems reviewed and no addt'l complaints, except as documented Vital Signs Vital Signs Vital Signs: 12/27/20 10:20 12/27/20 11:43 12/27/20 12:34 Temperature 98.2 F 98.4 F 98.2 F Temperature Source Temporal Temporal Pulse Rate 96 88 88 Blood Pressure 120/85 H 110/81 H 118/80 BP Systolic 120 110 118 BP Diastolic 85 81 80 Pulse Ox 97 95 96 12/27/20 14:03 12/27/20 14:04 12/27/20 15:17 Temperature 99.0 F Temperature Source Pulse Rate 97 99 Blood Pressure 81/47 L 113/78 BP Systolic 81 113 BP Diastolic 47 78 Pulse Ox Weight Weight: 206 lb 9.17 oz Body Mass Index (BMI) 35.4 Physical Exam Const alert, oriented x3 and healthy appearing Constitutional Narrative: some dizcomfort with contractions HEENT normocephalic and moist oral mucous membranes Head and Scalp: atraumatic Neck full ROM, no lymphadenopathy, supple and thyroid normal General: trachea midline Thyroid: thyroid normal Lymph Lymphatic: no lymphadenopathy noted Chest inspection of chest normal Resp normal respiratory effort Cardio regular rate GI normal to inspection, nondistended, normoactive bowel sounds, soft to palpation and non-tender Inspection: gravid external exam normal Bimanual Exam - Vag & Uterus: uterus non-tender Manual OB Exam: estimated gestational size appropriate, presentation cepha lic, dilated, effaced and station Extremity normal to inspection General Extremity: Negative for edema Skin no rashes or lesions noted Neuro deep tendon reflexes 2+ bilaterally Motor Exam: strength 5/5 throughout and clonus absent Psych mental status grossly normal Labs Labs Labs: Blood Type O POSITIVE Antibody Screen NEGATIVE Hct 36.0 % (37-47) L Hgb 12.3 g/dL (12.0-15.0) Obstetrics US Syphilis Total Ab Non-reactive Rubella IgG Antibody Reactive (Nonreactive) Hep Bs Antigen Non-Reactive (Nonreactive) Neisseria gonorrhoeae DNA (JANNETH) Negative (Negative) HIV 1&2 Antibody Non-Reactive (Nonreactive) C.trachomatis DNA (PCR) Negative (Negative) Group B Strep DNA Negative (Negative) Assessment & Plan (1) Gestational thrombocytopenia: QUALIFIERS: Trimester: second trimester Qualified Code(s): O99.112 - Other diseases of the blood and blood-forming organs and certain disorders involving the immune mechanism complicating , second trimester; D69.6 - Thrombocytopenia, unspecified COMMENT: repeat CBC 36 wks (2) Diabetes type 1, controlled: QUALIFIERS: Diabetes mellitus complication status: with hyperglycemia Qualified Code(s): E10.65 - Type 1 diabetes mellitus with hyperglycemia COMMENT: insulin pump with dr sky (3) Chlamydia infection affecting : COMMENT: + 07/07/20. ADAM at next visit- NEGATIVE 09/01/20 (4) Supervision of high risk in first trimester: COMMENT: PRR CARLEY 02/12/21 Boy! [place] PC:Adalberto, BF:CJ (5) Herpes simplex infection in mother during : QUALIFIERS: Trimester: first trimester Qualified Code(s): O98.511 - Other viral diseases complicating , first trimester; B00.9 - Herpesviral infection, unspecified COMMENT: 10 years since last outbreak. Plan Valtrex at 36 weeks. (6) Type 1 diabetes mellitus affecting in first trimester, antepartum: COMMENT: class B diabetes. Did not have diabetes during last . Managed by Dr. Sky. Neg experience with MFM - declines further visits unless absolutely needed. Last A1c 6.5. 2x/wk NSTs with weekly AFIs starting 28w. Growths q4w at 28w. Discussed timing of delivery based on glycemic control, CARLO borderline high (7) : QUALIFIERS: Weeks of gestation: 32 weeks Qualified Code(s): Z3A.32 - 32 weeks gestation of COMMENT: NIPT- low risk and carrier screening- neg plan afp screen. NL 1st trimester US. Anatomy nl but needs echo. 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 Sky. On Synthroid. (9) PROM with onset of labor within 24 hours of rupture: COMMENT: Azithromycin and vancomycin. GBS positive. Augmentation as needed (10) History of delivery: COMMENT: Spontaneous labor at 35 weeks in last . Compliant with manuel.
[2020-12-27] MEDS: Dext 5%-0.45% NS 1,000 ML 125 ML IV (16:35)
[2020-12-27] MEDS: Oxytocin 30 units/NS 500 ml 30 UNITS/500 ML IV.SOLN IV (16:56)
--- NOTE | 2020-12-27 17:53 | NURSING ---
1744: DAVID Kaiser verified Insulin bolus and change in insulin rate with DAVID Ramsey
[2020-12-27 17:56] LABS: Bedside Glucose 220 mg/dL (70-110)
[2020-12-27 18:46] LABS: Bedside Glucose 164 mg/dL (70-110)
[2020-12-27] MEDS: fentaNYL-bupivacaine (epidural) 100 ML BAG EPIDURAL (18:53)
[2020-12-27 19:56] LABS: Bedside Glucose 177 mg/dL (70-110)
[2020-12-27] MEDS: Oxytocin 30 units/NS 500 ml 30 UNITS/500 ML IV.SOLN 334 UNITS IV (21:00)
[2020-12-27 21:35] LABS: Bedside Glucose 176 mg/dL (70-110)
--- NOTE | 2020-12-27 21:39 | EX.PCM.OBRPT ---
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 Sky. On Synthroid. (2) diabetes type 1 controlled without complications: COMMENT: BG readings as presented doing fairly well. Occ lower BG after evening meal creates rebound high; she is then above 150 range in am. Enc to avoid lower BG in pm. Drop in Bg occurs with bolus for food;does not seem to be a long acting insulin issue. BP in range Chol in range. Microalbumin controlled. A1c 6.9 (3) Vaginal delivery: COMMENT: PPROM 33 SM boy melanie Maternal Data Information CARLEY Calculator Estimated Delivery Date Method Current WG Current Estimate 02/12/21 Ultrasound #1 33w 2d Vaginal Delivery Operative Information Pre-Operative Diagnosis: PPROM Post-Operative Diagnosis: same Surgery / Procedure Performed: Spontaneous Vaginal Delivery Type of Anesthesia: Epidural Special Medications: none Estimated Blood Loss: 100 Fluids Replaced: crystalloid Findings Description of Procedure: Patient began pushing and delivered the head in the LOP presentation. The head was delivered atraumatically . The anterior and posterior shoulders delivered without complication followed by the rest of the infant and the was placed on the maternal abdomen. Delayed cord clamping was employed for approximately 60 seconds. Cord was clamped and cut and gentle traction was applied to the cord and the placenta delivered spontaneously immediately following it was noted to be intact with three-vessel cord. The perineum and vagina were inspected and noted to have a first-degree perineal laceration repaired in the usual fashion with 3-0 Vicryl Rapide. EBL was 100 cc. Patient and infant tolerated delivery well. Presentation: TIM Amniotic Membrane Rupture Type: Spontaneous Amniotic Fluid Description: Clear Placental Delivery Description: Spontaneous Placenta Disposition: [facility] Cord Vessel Description: 3 Vessels Cord Entanglement: None A Gender: Male Delayed Cord Clamping: Yes Post Vaginal Delivery Medications Given After Delivery: IV Pitocin Episiotomy Description: None Laceration: Perineal Extension/lac and 1st degree Complication Complications: None Procedures Urinary/Genital [id number]: [id number] Vaginal Delivery+PP Care([facility])
--- NOTE | 2020-12-27 21:42 | PCM.DC ---
Discharge Instructions Diet Discharge Diet: No restrictions Activity Discharge Activity: Return to Normal Activity, May Not Drive (while taking narcotic pain medications.) and May Shower May resume sexual activity in: 4-6 weeks Dressing / Incision Call your doctor if your incision/area has: Continuous Slow Oozing, Sudden Increased Bleeding, Increased Pain/ Swelling, Increased Redness and Foul Smelling Discharge Follow Up Care Please Follow Up With: Samantha Ramirez MD When: Call [phone] to make an appointment with your doctor in 6 weeks. If you had elevated blood pressure or 4th degree laceration, you will need to be seen in 2 weeks. Test Results: Test results from this visit will be discussed in further detail at your follow-up appointment, if applicable. Discharge Plan Admission Admit Date/Time: 12/27/20 10:30 Primary Reason for Your Visit: vaginal delivery Attending Provider: Samantha Ramirez Primary Care Provider: Geovanna Ibarra Discharge Orders/Prescriptions Prescriptions: No Action insulin lispro 100 unit/mL solution 85 unit SC DAILY Qty: 30 RF: 4 levothyroxine 112 mcg tablet 112 mcg PO DAILY RF: 0 lidocaine [Lidoderm] 5 % adhesive patch,medicated 1 patch topical DAILY Qty: 15 RF: 0 (DME) BD SafetyGlide Insulin Syringe 0.3 mL 31 gauge x 15/64 syringe See Rx Instructions .ROUTE .MEDSUPPLY Qty: 50 RF: 0 insulin aspart U-100 [Novolog U-100 Insulin aspart] 100 unit/mL solution 100 unit SC DAILY Qty: 30 RF: 3 Glucagon Emergency Kit (human) 1 mg recon soln 1 mg SC Q20M PRN (Reason: hypoglycemia) Qty: 2 RF: 6 promethazine 12.5 mg tablet 12.5 mg PO Q6H PRN (Reason: nausea and vomiting) Qty: 60 RF: 3 (DME) blood-glucose meter [FreeStyle Lite Meter] Kit See Rx Instructions .ROUTE .MEDSUPPLY Qty: 1 RF: 0 (DME) OneTouch Verio test strips Strip See Rx Instructions .ROUTE .MEDSUPPLY Qty: 250 RF: 7 (DME) blood-glucose meter [OneTouch Verio Flex meter] Misc See Rx Instructions .ROUTE .MEDSUPPLY Qty: 1 RF: 0 lidocaine HCl 2 % jelly 1 applic topical TID PRN (Reason: pain) Qty: 30 RF: 0 Referrals / Follow Up: Geovanna Ibarra MD [Primary Care Provider] - Samantha Ramirez MD [STAFF PHYSICIAN] - Rod Sky MD [STAFF PHYSICIAN] - Disposition Disposition (needs filled in before D/C Order can be placed): Home, Self Care
--- NOTE | 2020-12-28 01:00 | NURSING ---
Addendum entered by Nuha Gould 12/28/20 05:07: 0500: Fasting BS 161 per patient insulin pump. Original Note: 0100: PT 2hr post-prandial blood glucose is 258. Blood glucose is checked via pt own insulin pump which is okay to check per MD.
[2020-12-28 04:59] VITALS: BP 124/84; PULSE 86; RESP 16; TEMP 36.1
[2020-12-28] MEDS: Levothyroxine 112 MCG Tablet PO (06:07)
--- NOTE | 2020-12-28 07:47 | PN.OBGYN_ITS ---
Subjective Subjective Patient doing well without complaints. Tolerating PO. Ambulating and voiding without difficulty. Feeding well. Denies chest pain, shortness of breath, calf pain/swelling, fevers, chills, lightheadedness. Baby 33 wk, SCN, no resp assistance/doing well Objective Data Objective Data Vital Signs: Vital Signs Temp Pulse Resp BP Pulse Ox 97 F L 86 16 124/84 H 97 12/28/20 04:59 12/28/20 04:59 12/28/20 04:59 12/28/20 04:59 12/27/20 21:21 Oxygen Delivery Method Room Air Weight: 206 lb 9.17 oz Body Mass Index (BMI) 35.4 Intake & Output: Intake and Output for Last 24 Hours 12/26/20 12/27/20 12/28/20 23:59 23:59 23:59 Intake Total 3518.14 / 3518.14 Output Total 1300 / 1300 500 / 500 Balance 2218.14 / 2218.14 -500 / -500 Lab / Micro Data Result Diagrams: 12/27/20 11:15 Labs: Laboratory Results - last 24 hr 12/27/20 10:25: Vag Amniotic Fld Detect POSITIVE H 12/27/20 10:58: POC Glucose 98 12/27/20 11:00: Group B Strep DNA Negative, Specimen Comment Not Reportable 12/27/20 11:15: WBC 10.9, RBC 3.95 L, Hgb 12.3, Hct 36.0 L, MCV 91.1, MCH 31.1, MCHC 34.2, RDW Std Deviation 39.4, RDW Coeff of Mylene 11.8, Plt Count 174, MPV 10.2, Immature Gran % (Auto) 0.700, Neut % (Auto) 64.0, Lymph % (Auto) 27.8, [place] % (Auto) 7.0, Eos % (Auto) 0.3, Baso % (Auto) 0.2, Absolute Neuts (auto) 7.0, Absolute Lymphs (auto) 3.02, Nucleated RBC % 0 12/27/20 11:15: Blood Type O POSITIVE, Antibody Screen NEGATIVE 12/27/20 12:40: Urine Color Yellow, Urine Clarity Sl. Cloudy, Urine pH 6.5, Ur Specific [place] 1.010, Urine Protein 30 H, Urine Glucose (UA) Normal, Urine Ketones Negative, Urine Occult Blood 250 H, Urine Nitrite Positive H, Urine Bilirubin Negative, Urine Urobilinogen Normal, Ur Leukocyte Esterase 500 H, Urine RBC 25-50 SEEN, Urine WBC 50-100 SEEN, Ur Squamous Epith Cells 0-5 SEEN, Urine Bacteria 2+, Urine Mucus 0 SEEN 12/27/20 12:40: Urine Opiates Screen NEGATIVE, Urine Methadone Screen NEGATIVE, Ur Barbiturates Screen NEGATIVE, Ur Phencyclidine Scrn NEGATIVE, Ur Amphetamines Screen NEGATIVE, U Methamphetamin-MDMA NEGATIVE, U Benzodiazepines Scrn NEGATIVE, Urine Cocaine Screen NEGATIVE, U Cannabinoids Screen NEGATIVE, Ur Drug Screen Comment 12/27/20 17:40: POC Glucose 220 H 12/27/20 18:34: POC Glucose 164 H 12/27/20 19:40: POC Glucose 177 H 12/27/20 21:16: POC Glucose 176 H Micro: Microbiology 12/27/20 11:05 Mucosa - Nose SARS-CoV-2 Antigen (Rapid) - Final Physical Exam Const alert and oriented x3 HEENT normocephalic Eyes PERRL Neck full ROM Resp normal respiratory effort GI soft to palpation GI Narrative: FF below U Assessment & Plan (1) Vaginal delivery: COMMENT: PPROM 33 SM boy melanie (2) diabetes type 1 controlled without complications: COMMENT: BG readings as presented doing fairly well. Occ lower BG after evening meal creates rebound high; she is then above 150 range in am. Enc to avoid lower BG in pm. Drop in Bg occurs with bolus for food;does not seem to be a long acting insulin issue. BP in range Chol in range. Microalbumin controlled. 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 Sky. On Synthroid. PLAN: s/p PPD # 1 1. routine post delivery care 2. breast feeding- support given 3. rh positive 4. rubella immune 5. blood sugars managed per Dr Sky
[2020-12-28 08:00] VITALS: BP 129/82; PULSE 104; RESP 18; TEMP 36.6
--- NOTE | 2020-12-28 11:05 | NURSING ---
Pt ate at 0900, 2 hour PP blood sugar was 141 at 1100
[2020-12-28 14:00] VITALS: BP 120/86; PULSE 114; RESP 18; TEMP 37.1
--- NOTE | 2020-12-28 14:37 | NURSING ---
Pt ate lunch at 1230, 2 hour post prandial blood sugar was 155 at 1430.
--- NOTE | 2020-12-28 17:11 | NURSING ---
IBCLC round done on patient today, she was pumping at time of rounding so was able to check pump settings and flange fit at that time. Flanges are boarderline too large but will continue to monitor once the mother gets another day of pumping going. Mother reports that pumping is comfortable for her just tickles. No colostrum yet noted. Mother's pumping plan is every 3 hours for 20min. She was turning speed down to 50 after a couple minutes but I advised her to go ahead and leave the speed at 80 until we start to see some milk forming. Mother reports that her 9 yr old at had a lot of problems latching so she didn't really breastfeed, also reports that her milk didn't come in until 5 weeks later. Highly encouraged the use of support in SCN that we could be called if and when she is able to attempt latching. She indicates understanding. Mother statse she has already placed an order with her insurance company to get a pump mailed and its on its way, she checked tracking and the pump is in [place] so I told her we will want to have a pump available for her at home after d/c because needing to pump with babies is often needed.
[2020-12-28 17:27] VITALS: BP 106/74; PULSE 77; RESP 16; TEMP 36.8
[2020-12-28 20:45] VITALS: BP 102/77; PULSE 83; RESP 18; TEMP 36.6
--- NOTE | 2020-12-28 22:47 | NURSING ---
BGT 190 mg/dl at 2240 per patient's pump
[2020-12-29 02:44] VITALS: BP 106/79; PULSE 82; RESP 82; TEMP 36.4
[2020-12-29] MEDS: Levothyroxine 112 MCG Tablet PO (06:22)
--- NOTE | 2020-12-29 06:23 | NURSING ---
bedside blood glucose 96 mg/dl per pt's pump. pt states she suspended pump at this time. synthroid given and pt declines snack and states she is ordering breakfast.
--- NOTE | 2020-12-29 08:04 | PCM.PN.OB ---
Subjective Subjective Patient doing well without complaints. Tolerating PO. Ambulating and voiding without difficulty. Feeding well. Denies chest pain, shortness of breath, calf pain/swelling, fevers, chills, lightheadedness. Objective Data Objective Data Vital Signs: Vital Signs Temp Pulse Resp BP Pulse Ox 97.5 F L 82 82 H 106/79 97 12/29/20 02:44 12/29/20 02:44 12/29/20 02:44 12/29/20 02:44 12/27/20 21:21 Oxygen Delivery Method Room Air Weight: 206 lb 9.17 oz Body Mass Index (BMI) 35.4 Intake & Output: Intake and Output for Last 24 Hours 12/27/20 12/28/20 12/29/20 23:59 23:59 23:59 Intake Total 3518.14 / 3518.14 Output Total 1300 / 1300 500 / 500 Balance 2218.14 / 2218.14 -500 / -500 Lab / Micro Data Result Diagrams: 12/27/20 11:15 Micro: Microbiology 12/27/20 12:40 Urine, Clean Catch Urine Culture - Final Escherichia coli 12/27/20 11:05 Mucosa - Nose SARS-CoV-2 Antigen (Rapid) - Final Physical Exam Const alert and oriented x3 HEENT normocephalic Eyes PERRL Neck full ROM Resp normal respiratory effort GI soft to palpation GI Narrative: FF below U Assessment & Plan (1) Vaginal delivery: COMMENT: PPROM 33 SM boy melanie (2) diabetes type 1 controlled without complications: COMMENT: BG readings as presented doing fairly well. Occ lower BG after evening meal creates rebound high; she is then above 150 range in am. Enc to avoid lower BG in pm. Drop in Bg occurs with bolus for food;does not seem to be a long acting insulin issue. BP in range Chol in range. Microalbumin controlled. A1c 6.9 PLAN: s/p PPD # 2 1. routine post delivery care 2. breast feeding- support given 3. rh positive 4. rubella immune 5. hotel status. Jeniffer Borjas stable in SCN(33 wk gest)
[2020-12-29 08:05] VITALS: BP 94/63; PULSE 65; RESP 16; TEMP 36.8
--- NOTE | 2020-12-29 08:27 | NURSING ---
At 0805 pt states she blood sugar is 83, pt asymptomatic. Pt informed that breakfast tray will be coming but given juice and crackers in the meantime.
--- NOTE | 2020-12-29 11:18 | NURSING ---
Pt's 2 hour post prandial blood sugar was 167.
--- NOTE | 2020-12-29 14:19 | NURSING ---
bgt 102 per pt monitor
[2020-12-29 14:45] VITALS: BP 108/74; PULSE 94; RESP 16; TEMP 36.8
--- NOTE | 2021-01-05 18:15 | CASEMGMT ---
Social Work Assessment Labor and Delivery Unit Patient Address: [address], [place] [address] Phone number: [phone] Referred By: Social work identification Date of Intervention: 01/05/2021 Time of Intervention: 1814 Reason for Referral: Maternal history of depression; baby was admitted to the [facility] special care nursery History obtained from: Medical records and mother of baby (MOB) Claudia Llamas Household composition: DEDRICK reports that she and the father of baby (FOB) Opal Reynolds lives in an apartment together, since December 112020. Intend for baby to live in this residence. Patient's parent/guardian status: DEDRICK is a 30-year-old female involved with the FOB for a little over 1 year. DEDRICK denies any type of abuse in the relationship with DANDRE. When asked about abuse questions, the MOB responded he helps me when I fall from having low blood sugars. MOB and FOB each have 1 child from prior relationships. [place] baby is the first child for both together. baby is to be named Indio Reynolds, born 12/27/2020. Other minor children for this family unit include: MOB older child Adalberto Llamas born 06/16/2011,. Father is Jose Hazel. Jose currently has custody of Adalberto, with DEDRICK ordered to have visitation although has not seen her son since December 2019. DEDRICK reports uncertainty where they are actually living, and suspects this [facility]. FOB is older child is Jamil who is age 13, and living with the FOB is mother and stepfather. Medical History: DEDRICK is 2, para 1 now 2 after delivering Meliton. care started at 13 weeks and regular thereafter. DEDRICK is a type I diabetic reporting diagnosed 7 to 8 years ago. DEDRICK has an insulin pump. Meliton was born at 33 weeks. Weighing 6 pounds 2 ounces. Apgars 8 and 9 at 1 and 5 minutes of life respectively. was admitted into the special care nursery related to prematurity. Educational Status: DEDRICK reports she has been working on her GED. Reports finished the 12th grade but had a difficult time passing the state testing so never got her diploma. Denied having any letter learning disabilities. 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 Plans return back to this job after maternity leave. VENITA works at 2 restaurants, picking up the second job since the baby has been born, in order to help compensate for the reduced income with DEDRICK being on maternity leave. Infant Supplies: MOB reports to have necessary supplies including a car seat, stroller, pack and play with a bassinet attachment, clothing, diapers, wipes, breast pump. Plans to also provide some formula and will use WIC for assistance. Plans to order a crib. Childcare/Caregiver(s): MOB will be the primary caregiver. When MOB returns to work she and the FOB plan to work opposite shifts, so as to not have to hire any caregivers. Transportation: MOB nor FOB Drive, and rely on taxi vouchers and insurance for transportation. Programs/Agencies Involved: Working with community [facility] for assistance with transportation/taxi vouchers and work passes. Reports to have WIC. Reports to have medical and plans to get food assistance. VENITA does have a food card. MOB verbally agrees to help me grow referral. Children Services/Legal Issues: Denies any legal issues. DEDRICK reports a history of children services when still to know his father. MOB reports there are allegations that DEDRICK was neglecting Adalberto and drinking alcohol heavily. MOB reports that children services came out and closed the case shortly after. Behavioral Health Issues: Mental Health History: DEDRICK reports a history of depression and also depression. Denies any history of suicidal ideations, attempts, or intent. Reports was on Zoloft for about 6 months . Reports she had a difficult time being motivated to take care of Adalberto, but that she still did not. MOB reports she had poor support from Adalberto's father at that time. Substance Use History: He denies any history of illicit drug usage. Initially denied any history of alcohol use issues, then at one point during conversation DEDRICK mentioned that she used to drink 2 bottles of wine from the time no went to bed until he woke up. Reported the bottles were expensive at $23 a bottle, and was able to stop drinking anything since September 2019. Based off of reports of drinking this amount, concern whether there may have been some alcohol use issues in the past. Denies any alcohol usage during this however. Family History: DEDRICK describes that no one has mental retardation and when this auto service writer reframed and identified that Adalberto has developmental disabilities, the MOB reported he has mental retardation. Family/Social Stressors: baby admitted to the special care nursery. And will be tearful when talking about older son Adalberto, and not being able to see this child since last December. Discussing stress from Adalberto's father not abiding by the court order to allow visitation. MOB and FOB were living with the FOB's brother and [id number] during the , but moved several weeks prior to delivery in order to have more room. Neither parent drives, and rely on community resources for transportation. Support Systems: MOB reports primary support is the father of baby. Depression/Shaken Baby/Safe Sleeping: Information provided on safe sleeping, shaken baby prevention, and mood and anxiety disorders. ASSESSMENT: Met with the MOB at the baby's bedside in the special care nursery. Educated MOB that this auto service writer is the social media marketing analyst for the labor and delivery unit at [facility], and for continuity of care of families who are admitted to the special care nursery, this auto service writer also provide social work services to the special care nursery. MOB pleasant, calm, and cooperative. MOB was spontaneous in conversation, sharing information that this auto service writer had not eaten asked about that. This auto service writer learned within the first 5 minutes of that assessment about stressors with her ex-, allegations of drinking too much, and history of children services. MOB's conversation was at times tangential, but easily redirected by this auto service writer. MOB with a pleasant and bright affect, with the exception of when MOB discussed her older son. MOB handled the baby throughout the social work visit, and MOB was calm and appropriate and how handled the baby. Uncertain at times whether MOB understood some of the questioning, as MOB would give different answers throughout the assessment. For example when MOB was asked about history of substance use issues, the MOB denied, and then later on at a different juncture, the MOB talked about drinking 2 bottles of wine from time the child went to bed until he woke up. MOB is stating to have necessary supplies for the baby. There seems to be some limited support however, and that VENITA is now working 2 jobs and MOB really unable to say who else would be able to help with the baby if MOB needed a break. MOB does agree to help me grow referral, for some added support. Denies any concerns about depression at this time. Reports to feel she is in a better place and to have a better support from the FOB. That MOB has already been discharged as a patient. Social work following on the special care unit. Community resource information has been provided with the local social service agencies, information on mood and anxiety disorders, and to help help me grow referral will be made. No other services requested or indicated. -ALEJANDRO Mireles, JOSE JUAN *This note was generated with [employer] dictation software. It may contain incorrect words, spelling, and punctuation that were not noted in review of the chart prior to signing*
== END 2020-12-29 14:49 | disposition home or self-care (01) | DRG 560 ==
LOC: WPOUT 10:32 → WP 10:32
PROVIDERS: Admitting Provider Obstetrics & Gynecology; PCP Internal Medicine; Visit Provider Obstetrics & Gynecology
DX: O42.013 Preterm premature rupture of membranes, onset of labor within 24 hours of rupture, third trimester (principal); O24.02 Pre-existing type 1 diabetes mellitus, in childbirth; E10.9 Type 1 diabetes mellitus without complications; O76 Abnormality in fetal heart rate and rhythm complicating labor and delivery; O98.82 Other maternal infectious and parasitic diseases complicating childbirth; B95.1 Streptococcus, group B, as the cause of diseases classified elsewhere; O70.0 First degree perineal laceration during delivery; Z3A.33 33 weeks gestation of pregnancy; Z37.0 Single live birth; Z96.41 Presence of insulin pump (external) (internal); Z79.4 Long term (current) use of insulin
CPT/HCPCS: 59025; 59050; 76815; 80307; 81001; 82962; 84112; 85025; 86850; 86900; 86901; 87077; 87081; 87086; 87088; 87186; 87426; 87653; 99218; J7040; J7120; A4216; G0378; J7799

== ENCOUNTER → 2021-03-24 | Outpatient (CLI) | payer MEDICAID, SELFPAY ==
[2021-03-26 20:07] LABS: Chlamydia By Nucleic Acid AMP Negative (Negative)
[2021-03-26 21:03] LABS: Gonococcus By Nucleic Acid AMP Negative (Negative)
== END | disposition home or self-care (01) ==
LOC: LABSPEC 13:16
PROVIDERS: PCP Internal Medicine; Visit Provider Obstetrics & Gynecology
DX: Z11.3 Encounter for screening for infections with a predominantly sexual mode of transmission (principal)
CPT/HCPCS: 87491; 87591

== ENCOUNTER 2021-04-09 12:19 | Emergency (ER) | payer MEDICAID, SELFPAY ==
[2021-04-09 12:19] VITALS: BP 129/90; PULSE 126; RESP 16; TEMP 36.2; O2SAT 100; BMI 37.4
--- NOTE | 2021-04-09 12:57 | ED.VIS.LOWEX ---
HPI History of Present Illness Chief Complaint: Lower Extremity Injury Informant: patient Occured/Mechanism Mechanism/Context: Yes fall Onset/Context/Timing Onset: Yesterday Context: Sudden Onset Timing: Continuous Quality of Pain: Aching Location: Left knee Current Severity: Moderate Maximum Severity: Severe Worsened by: Moving Relieved by: Remaining still Associated Symptoms Associated Symptoms: Negative for Parasthesia and Weakness Narrative Narrative: Patient states she was in a parking lot and she slipped on a smashed pumpkin that was also covered in ice resulting in her slipping and falling onto her left knee. She has been able to hobble around on it since but having trouble moving it at all. [facility] Medical History Arm fracture Depression Diabetes Diabetes in undelivered Gestational thrombocytopenia Herpes genitalis History of pre-term labor History of premature rupture of membranes (PPROM) History of tetanus, diphtheria, and acellular pertussis booster vaccination (Tdap) Hypothyroid Obesity depression Presence of insulin pump Home Medications insulin syringe,safetyneedle 0.3 mL 31 gauge x 15/64 #50 ea 06/10/20 [Rx Last Taken Unknown] glucagon (human recombinant) 1 mg solution for injection 1 mg SC Q20M PRN #2 ea 06/25/20 [Rx Last Taken Unknown] FreeStyle Lite Meter #1 ea NS 08/13/20 [Rx Last Taken Unknown] blood sugar diagnostic #250 each 09/11/20 [Rx Last Taken Unknown] blood-glucose meter #1 each 09/11/20 [Rx Last Taken Unknown] levothyroxine 112 mcg PO DAILY 10/15/20 [History Last Taken 12/14/20 11:00] insulin lispro 100 unit/mL subcutaneous solution 100 unit CONTINUOUS SUBCUTANEOUS INFUSION DAILY #30 ml 03/08/21 [Rx Last Taken Unknown] tramadol 50 mg PO Q4H PRN PRN 2 Days #12 tab 04/09/21 [Rx Last Taken Unknown] Allergy/AdvReac Type Severity Reaction Status Date / Time Penicillins Allergy Intermediate Unknown Verified 04/09/21 12:21 Family History Grandfather Diabetes Mother Anemia Surgical History H/O removal of cyst Social History Smoking Status: Former smoker second hand exposure: Yes alcohol intake: current substance use type: does not use caffeine: Yes what type of physical activity do you participate in: none seatbelt use: sometimes do you feel safe at home: Yes additional social history: 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 ROS ROS ED Constitutional Constitutional ED: Denies chills or fever(s) Musculoskeletal Musculoskeletal: Reports extremity pain; Denies neck pain Integumentary Denies Abrasions, rash or wounds Neurologic Neurologic: Denies paresthesias or weakness EXAM Physical Exam Const Vital Signs: 04/09/21 12:19 Temperature 97.1 F L Temperature Source Temporal Pulse Rate 126 H Respiratory Rate 16 Blood Pressure 129/90 H Blood Pressure Mean 103 Pulse Ox 100 Oxygen Delivery Method Room Air Positive well nourished and well developed General Appearance ED: well developed and NAD Neck full ROM and supple Back/Spine normal ROM and normal to inspection Extremity Extremity Narrative: Contusion with abrasion anterior knee from the mid patella down to the tibial tuberosity, very tender in all of this area including the upper pole of the patella. Probable mild effusion. Very limited range of motion due to pain, she is barely able to bend and not able to completely straighten due to pain so I am not able to evaluate the extensor mechanism but her patella does appear to be in the expected location with her knee resting. No deformities. No lateral joint line tenderness. Limited evaluation of ligaments, LCL and MCL are grossly intact with no laxity. Neuro oriented x3, no focal motor deficits and no sensory deficits noted Sensorium / Orientation: alert Psych mental status grossly normal and thought process normal Skin no wounds Rashes: no rashes MDM MDM MDM Narrative Medical decision making narrative: Three-view x-ray of the left knee on my interpretation shows no acute fracture or dislocation, there is an effusion present. Patient will be advised to follow-up with orthopedics, she was given Dez wrap, pain medication, crutches and appropriate instructions. Discharge Plan Triage Chief Complaint: Lower Extremity Injury ED Provider: Teja Bello Dx/Rx/DC Orders Clinical Impression: Traumatic effusion of knee joint, Contusion of knee, left, Fall from slipping Instructions: ED Knee Effusion Prescriptions: New tramadol 50 MG tablet 50 mg PO Q4H PRN PRN (Reason: Pain) 2 Days Qty: 12 RF: 0 No Action insulin lispro 100 unit/mL solution 100 unit continuous subcutaneous infusion DAILY Qty: 30 RF: 6 levothyroxine 112 mcg tablet 112 mcg PO DAILY RF: 0 (DME) BD SafetyGlide Insulin Syringe 0.3 mL 31 gauge x 15/64 syringe See Rx Instructions .ROUTE .MEDSUPPLY Qty: 50 RF: 0 Glucagon Emergency Kit (human) 1 mg recon soln 1 mg SC Q20M PRN (Reason: hypoglycemia) Qty: 2 RF: 6 (DME) blood-glucose meter [FreeStyle Lite Meter] Kit See Rx Instructions .ROUTE .MEDSUPPLY Qty: 1 RF: 0 (DME) OneTouch Verio test strips Strip See Rx Instructions .ROUTE .MEDSUPPLY Qty: 250 RF: 7 (DME) blood-glucose meter [OneTouch Verio Flex meter] Misc See Rx Instructions .ROUTE .MEDSUPPLY Qty: 1 RF: 0 Primary Care Provider: Geovanna Ibarra Referrals: Geovanna Ibarra MD [Primary Care Provider] - eGrman Naranjo DO [STAFF PHYSICIAN] - 1-2 Weeks Disposition Disposition: Home, Self Care
--- NOTE | 2021-04-09 13:09 | RAD_ITS ---
STUDY: X-RAY - LEFT KNEE REASON FOR EXAM: Female, 30 years old. Injury TECHNIQUE: 3 view(s) of the knee. COMPARISON: None. FINDINGS: There is no evidence of fracture or dislocation. There are no significant degenerative changes. There are no radiodense foreign bodies. RAD/Knee 1 or 2 Views IMPRESSION: No fracture or dislocation. Electronically Signed: Clem Mcbride MD at 14:21 EST Tel , Service support ,
[2021-04-09] MEDS: Naproxen 250 MG Tablet 500 MG PO (13:53)
[2021-04-09 14:03] VITALS: BP 130/81; PULSE 91
== END 2021-04-09 14:22 | disposition home or self-care (01) ==
PROVIDERS: Emergency Provider Emergency Medicine; PCP Internal Medicine
DX: S80.02XA Contusion of left knee, initial encounter (principal); F32.A Depression, unspecified; E03.9 Hypothyroidism, unspecified; E11.9 Type 2 diabetes mellitus without complications; Z79.4 Long term (current) use of insulin; Z96.41 Presence of insulin pump (external) (internal); Z79.899 Other long term (current) drug therapy; Z87.891 Personal history of nicotine dependence; W01.0XXA Fall on same level from slipping, tripping and stumbling without subsequent striking against object, initial encounter; Y93.01 Activity, walking, marching and hiking; Y92.89 Other specified places as the place of occurrence of the external cause; Y99.8 Other external cause status
CPT/HCPCS: 73560; 99283

== ENCOUNTER 2021-05-09 14:42 | Outpatient (RCR) | payer MEDICAID, SELFPAY ==
--- NOTE | 2021-05-09 15:50 | HP.PTEVAL_ITS ---
Patient's Visit Information FARZANA BARRETT is a 31 year old F referred to Physical Therapy by JULIAN Gutierrez with a diagnosis of Knee Pain. Date of Evaluation: 05/09/21 Physical Therapist: Cathleen Mccoy DPT - Visit Plan Frequency: 2x /Week Duration: 4 Weeks Plan: Focus on LE and core s/s- Ultrasound or E-stim modality of choice - Subjective Patient reports that she fell on the knee Dec 3- saw ortho- they said come back in 2 weeks- she was on crutches- but is now just on a knee brace. She has had x- rays but no MRI at this point. If this helps great if not then she will have to have an MRI. Pain is located along the medial joint line but if she straightens it out the pain shoots down the whole knee. No radiating pain to the hip/ankle. Agg: stairs, inclines, standing for long periods of time Worst: 4-5/10 Best: 0/10 Eases: sitting in a warm bath or hot water. Describes the pain as throbbing, dull or achy. Feels like she wants to warm it up. No buckling or giving out sensation. She has the most pain when she straightens it out. Has not had any falls. 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 She feels that she won't be able to go back until July. She is wearing the knee brace all the time- but takes it off to do exercises- does not sleep in it. Sleep: not disturbed. PMHx/Meds: no changes since seeing ortho - Objective Posture: FH, RS- can correct with verbal and tactile cues but does not maintain. Gait: decreased stance on the right LE- antalgic- no AD. HR/TR: able with UE A. SLS: weight shift but unable to SLS without UE A. Stairs: asc/desc 8 non recip. ROM: WFL in all planes. Sensation: WFL. Strength: Core: poor, Hip: 4/5 throughout Knee: 4+/5, Ankle: 5/5 throughout. Flex: HS: severe, Gastroc: severe. ROM: 0-125 degrees with pain full extension. Palpation: not tender - Special Tests L Knee Piedad - Meniscus: Negative L Knee Valgus - MCL: Negative L Knee Varus - LCL: Negative L Knee Patellar Grind - PFS: Negative - Balance/Special Test Scores Lower Extremity Functional Score: 32 - Goals Goal 1:: Patient will be I with HEP and progression Goal Time Frame: 4-6 Weeks Goal 2:: Patient will asc/desc 8 recip with no HR Goal Time Frame: 4-6 Weeks Goal 3:: Patient will SLS for 30 sec without loss of balance Goal Time Frame: 4-6 Weeks Goal 4:: Patient will report no pain for 1 week with return to all normal ADL's. Goal Time Frame: 4-6 Weeks - Rehabilitation Potential Physical Therapy Diagnosis: Patient presents with hypomobility- she has decreased LE and core strength/stabilization, proprioception, flex and muscular endurance leading to poor balance, abnormal gait and decreased ability to perform ADL's Rehabilitation Potential: Good - Anticipated Interventions Patient/Client Instruction: Educate patient on: Benefits of Fitness Program Therapeutic Exercise to Include: Strength training, Endurance training, Balance training, Coordination, Agility training, Body mechanics, Postural training, Flexibilty training, Gait and locomotor training, Neuromotor development, Passive ROM, Active ROM, Dynamic Lumbar Stabilization, Scapular Strength/Stabilization For the Purpose of:: To improve muscle performance and motor function TENS: Yes Cryotherapy (ice pack, ice massage): Yes Thermo therapy (hot pack): Yes Ultrasound (thermal/non thermal): Yes Thank you for the opportunity to evaluate your patient. For Medicare and Medicare HMO plans, please review the plan of care and approve it. It will need to be FAXED BACK to us at [phone] for Medicare purposes. For Medicare only, by signing this I certify the plan of care. Please let me know if there are questions or concerns regarding this plan of care. Physician Signature: Date:
--- NOTE | 2021-10-20 13:58 | HP.PT.NRP ---
FARZANA BARRETT was seen in my office for initial evaluation on 05/09/21. The following Plan of Care was established for this patient: Initial Frequency: 2x /Week Initial Duration: 4 Weeks Patient/Client Instruction: Educate patient on: Benefits of Fitness Program Therapeutic Exercise to Include: Strength training, Endurance training, Balance training, Coordination, Agility training, Body mechanics, Postural training, Flexibilty training, Gait and locomotor training, Neuromotor development, Passive ROM, Active ROM, Dynamic Lumbar Stabilization, Scapular Strength/Stabilization For the Purpose of:: To improve muscle performance and motor function TENS: Yes Cryotherapy (ice pack, ice massage): Yes Thermo therapy (hot pack): Yes Ultrasound (thermal/non thermal): Yes This patient was last seen in our office . Pertinent comments regarding their Physical therapy will appear below: Patient has not attended PT in over 30 days- appropriate to be d/c and return to MD for further evaluation as needed. At this point I will be discontinuing this patient from physical therapy. I would be happy to see this patient again in the future if found appropriate by the physician. Thank you! Cathleen Mccoy, RENETTAT Balance/Gait/Functional tests - Balance/Special Test Scores Lower Extremity Functional Score: 32
== END 2021-05-09 19:00 | disposition home or self-care (01) ==
LOC: PT 14:42
PROVIDERS: PCP Internal Medicine
DX: M25.562 Pain in left knee (principal)
CPT/HCPCS: 97110; 97161

== ENCOUNTER → 2021-12-23 | Outpatient (CLI) | payer MEDICAID, SELFPAY ==
[2021-12-23 11:40] LABS: Vitamin D,25 Hydroxy 46.8 ng/mL
[2021-12-23 11:47] LABS: ALB/GLOB Ratio 0.8 RATIO (0.9-2.4); AST(SGOT) 12 U/L (15-37); Alanine Aminotransfer ALT/SGPT 22 U/L (13-56); Albumin, Serum 3.2 g/dL (3.2-5.0); Alkaline Phosphatase 139 U/L (45-117); Anion Gap 5 (5-15); BUN 11 mg/dL (7-18); BUN/Creat Ratio 22.7 RATIO (10-20); Calcium,Total 8.8 mg/dL (8.5-10.1); Chloride 104 mmol/L (98-107); Cholesterol 119 mg/dL (200); Creatinine, Serum 0.48 mg/dL (0.55-1.02); EST Glomerular Filtration Rate 158 mL/min (>60); Est Glom Filt Rate - Afr Amer 191 mL/min (>60); Glucose 258 mg/dL (74-106); High Density Lipoprotein 45 mg/dL; Potassium 4.1 mmol/L (3.5-5.1); Protein, Total 7.2 g/dL (6.4-8.2); Sodium Level 137 mmol/L (136-145); T4 Free Direct 2.75 ng/dL (0.76-1.46); Thyroid Stim Hormone (TSH) < 0.01 uIU/mL (0.358-3.74); Triglycerides 110 mg/dL; Very Low Density Lipoprotein 22 mg/dL (5-40)
== END | disposition home or self-care (01) ==
LOC: LAB 10:13
PROVIDERS: PCP Internal Medicine; Referring Provider Internal Medicine Endocrinology, Diabetes & Metabolism; Visit Provider Internal Medicine Endocrinology, Diabetes & Metabolism
DX: E10.65 Type 1 diabetes mellitus with hyperglycemia (principal); E06.3 Autoimmune thyroiditis; E03.8 Other specified hypothyroidism; E55.9 Vitamin D deficiency, unspecified
CPT/HCPCS: 36415; 80053; 80061; 82306; 84439; 84443

== ENCOUNTER → 2022-01-13 | Outpatient (CLI) | payer MEDICAID, SELFPAY ==
[2022-01-13 10:30] LABS: Microalbumin,Random Urine 10.9 mg/L (NO RANGE EST.)
[2022-01-13 11:02] LABS: Free T3 5.4 pg/mL (2.18-3.98); T4 Free Direct 1.63 ng/dL (0.76-1.46); Thyroid Stim Hormone (TSH) < 0.01 uIU/mL (0.358-3.74)
== END | disposition home or self-care (01) ==
LOC: LAB 09:09
PROVIDERS: PCP Internal Medicine; Referring Provider Internal Medicine Endocrinology, Diabetes & Metabolism; Visit Provider Internal Medicine Endocrinology, Diabetes & Metabolism
DX: E03.8 Other specified hypothyroidism (principal); E06.3 Autoimmune thyroiditis
CPT/HCPCS: 36415; 82043; 82570; 84439; 84443; 84481

== ENCOUNTER → 2022-02-03 | Outpatient (CLI) | payer MEDICAID, SELFPAY ==
[2022-02-03 09:52] LABS: ALB/GLOB Ratio 0.8 RATIO (0.9-2.4); AST(SGOT) 13 U/L (15-37); Alanine Aminotransfer ALT/SGPT 21 U/L (13-56); Albumin, Serum 3.1 g/dL (3.2-5.0); Alkaline Phosphatase 136 U/L (45-117); Anion Gap 9 (5-15); BUN 12 mg/dL (7-18); Calcium,Total 8.8 mg/dL (8.5-10.1); Chloride 108 mmol/L (98-107); EST Glomerular Filtration Rate 123 mL/min (>60); Est Glom Filt Rate - Afr Amer 149 mL/min (>60); Globulin 3.7 g/dL (2.2-4.2); Glucose 156 mg/dL (74-106); Potassium 3.9 mmol/L (3.5-5.1); Protein, Total 6.8 g/dL (6.4-8.2); Sodium Level 141 mmol/L (136-145)
[2022-02-03 10:09] LABS: T4 Free Direct 1.28 ng/dL (0.76-1.46); Thyroid Stim Hormone (TSH) < 0.01 uIU/mL (0.358-3.74)
== END | disposition home or self-care (01) ==
LOC: LAB 08:52
PROVIDERS: Nurse Practitioner Family; PCP Internal Medicine; Referring Provider Internal Medicine Endocrinology, Diabetes & Metabolism; Visit Provider Internal Medicine Endocrinology, Diabetes & Metabolism
DX: E05.90 Thyrotoxicosis, unspecified without thyrotoxic crisis or storm (principal); E03.8 Other specified hypothyroidism; E06.3 Autoimmune thyroiditis
CPT/HCPCS: 36415; 80053; 84439; 84443

== ENCOUNTER → 2022-02-24 | Outpatient (CLI) | payer MEDICAID, SELFPAY ==
[2022-02-24 12:49] LABS: Free T3 3.3 pg/mL (2.18-3.98); T4 Free Direct 1.12 ng/dL (0.76-1.46); Thyroid Stim Hormone (TSH) < 0.01 uIU/mL (0.358-3.74)
== END | disposition home or self-care (01) ==
LOC: LAB 11:28
PROVIDERS: PCP Internal Medicine; Visit Provider Internal Medicine Endocrinology, Diabetes & Metabolism
DX: E05.90 Thyrotoxicosis, unspecified without thyrotoxic crisis or storm (principal)
CPT/HCPCS: 36415; 84439; 84443; 84481

== ENCOUNTER → 2022-05-05 | Outpatient (CLI) | payer MEDICAID, SELFPAY ==
[2022-05-05 11:24] LABS: Hemoglobin A1c 6.7 % (3.8-5.6)
[2022-05-05 11:56] LABS: Free T3 2.8 pg/mL (2.18-3.98); T4 Free Direct 0.91 ng/dL (0.76-1.46); Thyroid Stim Hormone (TSH) 0.02 uIU/mL (0.358-3.74)
== END | disposition home or self-care (01) ==
LOC: LAB 10:50
PROVIDERS: PCP Internal Medicine; Referring Provider Internal Medicine Endocrinology, Diabetes & Metabolism; Visit Provider Internal Medicine Endocrinology, Diabetes & Metabolism
DX: E03.8 Other specified hypothyroidism (principal); E10.65 Type 1 diabetes mellitus with hyperglycemia; E06.3 Autoimmune thyroiditis
CPT/HCPCS: 36415; 83036; 84439; 84443; 84481

== ENCOUNTER → 2022-08-18 | Outpatient (CLI) | payer MEDICAID, SELFPAY ==
[2022-08-18 10:59] LABS: ALB/GLOB Ratio 0.9 RATIO (0.9-2.4); AST(SGOT) 17 U/L (15-37); Alanine Aminotransfer ALT/SGPT 24 U/L (13-56); Albumin, Serum 3.5 g/dL (3.2-5.0); Alkaline Phosphatase 117 U/L (45-117); Anion Gap 4 (5-15); BUN 17 mg/dL (7-18); BUN/Creat Ratio 25.1 RATIO (10-20); Calcium,Total 8.4 mg/dL (8.5-10.1); Chloride 107 mmol/L (98-107); Creatinine, Serum 0.68 mg/dL (0.55-1.02); EST Glomerular Filtration Rate 107 mL/min (>60); Est Glom Filt Rate - Afr Amer 129 mL/min (>60); Free T3 2.6 pg/mL (2.18-3.98); Globulin 3.8 g/dL (2.2-4.2); Glucose 143 mg/dL (74-106); Protein, Total 7.3 g/dL (6.4-8.2); Sodium Level 135 mmol/L (136-145); T4 Free Direct 0.93 ng/dL (0.76-1.46)
== END | disposition home or self-care (01) ==
LOC: LAB 09:56
PROVIDERS: PCP Internal Medicine; Referring Provider Internal Medicine Endocrinology, Diabetes & Metabolism; Visit Provider Internal Medicine Endocrinology, Diabetes & Metabolism
DX: E11.9 Type 2 diabetes mellitus without complications (principal); E05.90 Thyrotoxicosis, unspecified without thyrotoxic crisis or storm
CPT/HCPCS: 36415; 80053; 84439; 84443; 84481

== ENCOUNTER → 2022-08-23 | Outpatient (CLI) | payer MEDICAID, SELFPAY ==
[2022-08-25 08:25] LABS: Chlamydia By Nucleic Acid AMP Negative (Negative); Gonococcus By Nucleic Acid AMP Negative (Negative)
== END | disposition home or self-care (01) ==
LOC: LABSPEC 10:31
PROVIDERS: PCP Internal Medicine; Visit Provider Nurse Practitioner Women's Health
DX: N89.8 Other specified noninflammatory disorders of vagina (principal)
CPT/HCPCS: 87070; 87205; 87491; 87591

== ENCOUNTER → 2022-11-15 | Outpatient (CLI) | payer MEDICAID, SELFPAY ==
[2022-11-15 17:31] LABS: Free T3 2.6 pg/mL (2.18-3.98); T4 Free Direct 1.02 ng/dL (0.76-1.46)
== END | disposition home or self-care (01) ==
LOC: LAB 16:30
PROVIDERS: PCP Internal Medicine; Referring Provider Internal Medicine Endocrinology, Diabetes & Metabolism; Visit Provider Internal Medicine Endocrinology, Diabetes & Metabolism
DX: E05.90 Thyrotoxicosis, unspecified without thyrotoxic crisis or storm (principal)
CPT/HCPCS: 36415; 84439; 84443; 84481

== ENCOUNTER → 2023-07-02 | Outpatient (CLI) | payer MEDICAID, SELFPAY ==
--- NOTE | 2023-07-02 13:31 | US_ITS ---
EXAM: US PELVIS TRANSABDOMINAL AND TRANSVAGINAL, COMPLETE CLINICAL INDICATION: pain TECHNIQUE: Transabdominal and endovaginal pelvic ultrasound was performed with grayscale and color Doppler imaging. Endovaginal imaging was used for better evaluation of the endometrium and adnexa. COMPARISON: No relevant prior studies available. FINDINGS: UTERUS/CERVIX: Uterus measures 8.6 x 5.2 x 4.3 cm. Endometrial thickness is 8 mm. RIGHT OVARY: Right ovary measures 3.7 x 1.9 x 1.8 cm. Blood flow is present in the right ovary. LEFT OVARY: Left ovary measures 4.1 x 2.3 x 1.9 cm. 2.5 cm complex left ovarian cyst which may represent corpus luteum/hemorrhagic ovarian cyst. Blood flow is present in the left ovary. FREE FLUID: Physiological amount of free fluid noted within the pelvis. TUBES, LINES AND DEVICES: Intrauterine device (IUD) in the endometrial canal. US/Pelvic w/ Transvaginal IMPRESSION: IUD in satisfactory position. As above. Electronically Signed: Asad Smtih MD at 15:48 EST ,
[2023-07-02 15:20] LABS: ALB/GLOB Ratio 0.9 RATIO (0.9-2.4); AST(SGOT) 15 U/L (15-37); Alanine Aminotransfer ALT/SGPT 18 U/L (13-56); Albumin, Serum 3.5 g/dL (3.2-5.0); Alkaline Phosphatase 101 U/L (45-117); Anion Gap 5 (5-15); BUN 13 mg/dL (7-18); Calcium,Total 8.8 mg/dL (8.5-10.1); Chloride 104 mmol/L (98-107); Cholesterol 156 mg/dL (200); Creatinine, Serum 0.81 mg/dL (0.55-1.02); EST Glomerular Filtration Rate 86 mL/min (>60); Est Glom Filt Rate - Afr Amer 104 mL/min (>60); Free T3 2.4 pg/mL (2.18-3.98); Globulin 3.8 g/dL (2.2-4.2); Glucose 210 mg/dL (74-106); High Density Lipoprotein 46 mg/dL; Potassium 3.8 mmol/L (3.5-5.1); Protein, Total 7.3 g/dL (6.4-8.2); Sodium Level 137 mmol/L (136-145); T4 Free Direct 0.94 ng/dL (0.76-1.46); Thyroid Stim Hormone (TSH) 2.81 uIU/mL (0.358-3.74); Triglycerides 153 mg/dL; Very Low Density Lipoprotein 31 mg/dL (5-40)
== END | disposition home or self-care (01) ==
PROVIDERS: Internal Medicine Endocrinology, Diabetes & Metabolism; PCP Internal Medicine; Referring Provider Nurse Practitioner Women's Health; Visit Provider Nurse Practitioner Women's Health
DX: E10.9 Type 1 diabetes mellitus without complications (principal); E05.90 Thyrotoxicosis, unspecified without thyrotoxic crisis or storm; Z96.41 Presence of insulin pump (external) (internal); Z46.81 Encounter for fitting and adjustment of insulin pump; R10.2 Pelvic and perineal pain
CPT/HCPCS: 36415; 76830; 76856; 80053; 80061; 84439; 84443; 84481

== ENCOUNTER 2023-07-08 20:37 | Emergency (ER) | payer MEDICAID, SELFPAY ==
[2023-07-08 20:38] VITALS: BP 155/87; PULSE 121; RESP 16; TEMP 36.1; O2SAT 98; BMI 37.9
--- NOTE | 2023-07-08 20:51 | EDS_ITS ---
HPI <JULIAN Aragon - Last Filed: 07/08/23 22:00> History of Present Illness Chief Complaint: Abn Labs Narrative Narrative: 33-year-old female is type I diabetic and wears an insulin pump. She ran out of insulin about 4 to 6 hours ago and cannot call her doctor for a refill until tomorrow, Sunday morning. She is on Humalog. She states her meter is reading high and she is urinating frequently. No nausea, vomiting, abdominal pain. She last ate 10 hours ago. PFSH <JULIAN Aragon - Last Filed: 07/08/23 22:00> [facility] Medical History Arm fracture COVID-19 Depression Diabetes in undelivered Diabetes mellitus type 1 Gestational thrombocytopenia Herpes genitalis History of pre-term labor History of premature rupture of membranes (PPROM) History of tetanus, diphtheria, and acellular pertussis booster vaccination (Tdap) Hypothyroid Influenza A Insulin pump titration Obesity depression Presence of insulin pump Vaginal delivery Home Medications FreeStyle Lite Meter (blood-glucose meter) #1 ea 08/13/20 [Rx Last Taken Unknown] blood sugar diagnostic (OneTouch Verio test strips) #250 ea 09/11/20 [Rx Last Taken Unknown] blood-glucose meter (OneTouch Verio Flex Meter) #1 ea 09/11/20 [Rx Last Taken Unknown] insulin glargine 100 unit/mL subcutaneous solution (Lantus U-100 Insulin) 64 unit (0.64 mL) subcut QPM #10 mL 03/09/22 [Rx Last Taken Unknown] insulin syringe,safetyneedle 0.3 mL 31 gauge x 15/64 (BD SafetyGlide Insulin Syringe) #50 ea 03/09/22 [Rx Last Taken Unknown] FreeStyle Navi 3 Sensor (blood-glucose sensor) #6 ea 08/04/22 [Rx Last Taken Unknown] PNV 158-iron 13.5 mg-folic 0.5 mg-omega 3-dha 150 mg-epa-fish capsule (Natavi PNV) cap PO 08/04/22 [History Last Taken Unknown] glucagon (human recombinant) 1 mg solution for injection 1 mg subcut Q20M PRN hypoglycemia #2 ea 08/04/22 [Rx Last Taken Unknown] multivitamin (Daily Multi-Vitamin tablet) 1 tab PO DAILY 08/04/22 [History Last Taken Unknown] levonorgestrel 20.4 mcg/24 hrs (8 yrs) 52 mg intrauterine device (Liletta) 1 device intrauterine ONCE 08/23/22 [History Last Taken Unknown] insulin lispro 100 unit/mL subcutaneous solution 170 unit (1.7 mL) continuous subcutaneous infusion DAILY #50 mL 03/20/23 [Rx Last Taken Unknown] methimazole 5 mg tablet 5 mg PO DAILY #30 tabs 03/20/23 [Rx Last Taken Unknown] estradiol 1 mg tablet (Estrace) 1 mg PO QDAY #30 tabs 06/28/23 [Rx Last Taken Unknown] Allergy/AdvReac Type Severity Reaction Status Date / Time Penicillins Allergy Intermediate Unknown Verified 06/28/23 08:52 Family History Grandfather Diabetes Mother Anemia Surgical History H/O removal of cyst Social History Smoking Status: Former smoker second hand exposure: Yes alcohol intake: current substance use type: does not use caffeine: Yes what type of physical activity do you participate in: none seatbelt use: sometimes do you feel safe at home: Yes additional social history: 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 ROS <JULIAN Aragon - Last Filed: 07/08/23 22:00> ROS ED ROS Narrative Constitutional: Negative for fever, chills, malaise. GI: Negative for abdominal pain, nausea, vomiting. : Positive for frequency. Negative for dysuria. EXAM <JULIAN Aragon - Last Filed: 07/08/23 22:00> Physical Exam Narrative Exam Narrative: CONST: Patient sitting in no acute distress. EYES: Normal inspection. NECK: Normal inspection. RESP: No respiratory distress, CTAB. CVS: Rapid with regular rhythm, no murmur, no gallop. ABD: Soft and nontender, no guarding or rebound, nondistended. SKIN: Color normal, no rash, warm, dry, intact. EXTREMITIES: Normal appearance, no pedal edema. NEURO: Oriented x4. PSYCH: Normal affect. Const Vital Signs: 07/08/23 20:38 07/08/23 21:14 07/08/23 22:00 Temperature 96.9 F L Temperature Source Temporal Pulse Rate 121 H 123 H Respiratory Rate 16 Respiratory Effort Normal Non-Labored Respiratory Pattern Normal Blood Pressure 155/87 H Blood Pressure Mean 109 Pulse Ox 98 Oxygen Delivery Method Room Air <Dr. Ever Parham DO - Last Filed: 07/08/23 23:04> Physical Exam Const Vital Signs: 07/08/23 20:38 07/08/23 21:14 07/08/23 22:00 Temperature 96.9 F L Temperature Source Temporal Pulse Rate 121 H 123 H Respiratory Rate 16 Respiratory Effort Normal Non-Labored Respiratory Pattern Normal Blood Pressure 155/87 H Blood Pressure Mean 109 Pulse Ox 98 Oxygen Delivery Method Room Air MDM <JULIAN Aragon - Last Filed: 07/08/23 22:00> MDM MDM Narrative Medical decision making narrative: Differential: Diabetic hyperglycemia versus DKA Patient is a type I diabetic and ran out of insulin for her pump about 4 to 6 hours ago. Complains of urinary frequency. She states since it's Sunday night this is the only place she can get insulin and she can call her primary care doctor tomorrow for a refill. She appears well and nontoxic. Heart rate is 120 with otherwise normal vital signs. She is tachycardic with regular rhythm. Lungs clear. Abdomen soft and nontender. CBC is WNL. Glucose is 610. Normal CO2 of 23 and anion gap 8. Sodium 128 from pseudohyponatremia. Potassium normal at 4.2. VBG shows normal pH. Ketones negative. UA has glucosuria but no infection. Since there is no DKA the plan is to give a 10 units bolus of short acting insulin and then her normal nighttime dose of insulin glargine 64 units which should provide coverage overnight. She prefers to go home and can call her doctor in the morning for an insulin refill. Lab Data Attestation: I reviewed the patient's lab results. Labs: Laboratory Results - last 24 hr 07/08/23 20:58 WBC 10.8 RBC 4.74 Hgb 14.3 Hct 42.4 MCV 89.5 MCH 30.2 MCHC 33.7 RDW Std Deviation 36.9 RDW Coeff of Mylene 11.3 L Plt Count 199 MPV 9.7 Immature Gran % (Auto) 0.300 Neut % (Auto) 65.7 Lymph % (Auto) 26.2 [place] % (Auto) 6.8 Eos % (Auto) 0.6 Baso % (Auto) 0.4 Absolute Neuts (auto) 7.1 Absolute Lymphs (auto) 2.84 Nucleated RBC % 0 Sodium 128 L Potassium 4.2 Chloride 97 L Carbon Dioxide 23.0 Anion Gap 8 BUN 17 Creatinine 0.96 Estim Creat Clear Calc 95.95 Est GFR (MDRD) Af Amer 86 Est GFR (MDRD) Non-Af 71 BUN/Creatinine Ratio 17.7 Glucose 610 H* Calcium 8.8 Urine Color Straw Urine Clarity Clear Urine pH 7.0 Ur Specific [place] 1.010 Urine Protein Negative Urine Glucose (UA) 1000 H Urine Ketones 50 H Urine Occult Blood Negative Urine Nitrite Negative Urine Bilirubin Negative Urine Urobilinogen Normal Ur Leukocyte Esterase Negative Urine RBC 0 SEEN Urine WBC 0 SEEN Ur Squamous Epith Cells 0 SEEN Urine Bacteria 0 SEEN Urine Mucus 0 SEEN Acetone Level NEGATIVE ABG Data ABG results: ABG 07/08/23 21:23 Specimen Type CHARLES Sample Site Not entered VBG pH 7.39 VBG pO2 51 H VBG HCO3 24 VBG Total CO2 25 VBG O2 Sat (Calc) 85 H VBG Base Excess -2 L POC Mix VBG pCO2 Pt Tmp 39.3 L O2 Delivery Device Room Air <Dr. Ever Parham, DO - Last Filed: 07/08/23 23:04> [facility] MDM Narrative Medical decision making narrative: Differential: Diabetic hyperglycemia versus DKA Patient is a type I diabetic and ran out of insulin for her pump about 4 to 6 hours ago. Complains of urinary frequency. She states since it's Sunday night this is the only place she can get insulin and she can call her primary care doctor tomorrow for a refill. She appears well and nontoxic. Heart rate is 120 with otherwise normal vital signs. She is tachycardic with regular rhythm. Lungs clear. Abdomen soft and nontender. CBC is WNL. Glucose is 610. Normal CO2 of 23 and anion gap 8. Sodium 128 from pseudohyponatremia. Potassium normal at 4.2. VBG shows normal pH. Ketones negative. UA has glucosuria but no infection. Since there is no DKA the plan is to give a 10 units bolus of short acting insulin and then her normal nighttime dose of insulin glargine 32 units which should provide coverage overnight. She prefers to go home and can call her doctor in the morning for an insulin refill. ED attending note: I evaluated the patient in conjunction with the [facility]. I agree with his/her statements and above findings. I have personally performed a face to face assessment of the patient and have reviewed the [facility] Note. I performed a substantive portion of the visit including all aspects of the following. I personally saw the patient performed chart review, physical exam, reviewed labs, imaging (if obtained), and formulated a treatment and management plan. This note was generated with [employer] dictation software. It may contain incorrect words, spelling, and punctuation that were not noted in review of the chart prior to signing. Lab Data Labs: Laboratory Results - last 24 hr 07/08/23 20:58 WBC 10.8 RBC 4.74 Hgb 14.3 Hct 42.4 MCV 89.5 MCH 30.2 MCHC 33.7 RDW Std Deviation 36.9 RDW Coeff of Mylene 11.3 L Plt Count 199 MPV 9.7 Immature Gran % (Auto) 0.300 Neut % (Auto) 65.7 Lymph % (Auto) 26.2 [place] % (Auto) 6.8 Eos % (Auto) 0.6 Baso % (Auto) 0.4 Absolute Neuts (auto) 7.1 Absolute Lymphs (auto) 2.84 Nucleated RBC % 0 Sodium 128 L Potassium 4.2 Chloride 97 L Carbon Dioxide 23.0 Anion Gap 8 BUN 17 Creatinine 0.96 Estim Creat Clear Calc 95.95 Est GFR (MDRD) Af Amer 86 Est GFR (MDRD) Non-Af 71 BUN/Creatinine Ratio 17.7 Glucose 610 H* Calcium 8.8 Urine Color Straw Urine Clarity Clear Urine pH 7.0 Ur Specific [place] 1.010 Urine Protein Negative Urine Glucose (UA) 1000 H Urine Ketones 50 H Urine Occult Blood Negative Urine Nitrite Negative Urine Bilirubin Negative Urine Urobilinogen Normal Ur Leukocyte Esterase Negative Urine RBC 0 SEEN Urine WBC 0 SEEN Ur Squamous Epith Cells 0 SEEN Urine Bacteria 0 SEEN Urine Mucus 0 SEEN Acetone Level NEGATIVE ABG Data ABG results: ABG 07/08/23 21:23 Specimen Type CHARLES Sample Site Not entered VBG pH 7.39 VBG pO2 51 H VBG HCO3 24 VBG Total CO2 25 VBG O2 Sat (Calc) 85 H VBG Base Excess -2 L POC Mix VBG pCO2 Pt Tmp 39.3 L O2 Delivery Device Room Air Discharge Plan Triage Chief Complaint: Abn Labs ED Midlevel Provider: Nora Horan ED Provider: Ever Parham Dx/Rx/DC Orders Clinical Impression: Diabetes mellitus type 1, Acute hyperglycemia Instructions: ED Diabetic Hyperglycemia Prescriptions: No Action Natavi PNV 13.5 mg iron- 0.5 mg-150 mg capsule PO multivitamin [Daily Multi-Vitamin] Tablet 1 tab PO DAILY Glucagon Emergency Kit (human) 1 mg recon soln 1 mg SC Q20M PRN (Reason: hypoglycemia) Qty: 2 6RF Rx Instructions: until target blood sugar attained (DME) FreeStyle Navi 3 Sensor Device See Rx Instructions .Route Qty: 6 3RF Rx Instructions: As directed Liletta 20.4 mcg/24 hrs (8 yrs) 52 mg intrauterine device 1 device intrauterine ONCE Rx Instructions: as a single dose insulin lispro 100 unit/mL solution 170 unit continuous subcutaneous infusion DAILY Qty: 50 6RF methimazole 5 mg tablet 5 mg PO DAILY Qty: 30 5RF estradiol [Estrace] 1 mg tablet 1 mg PO QDAY Qty: 30 0RF (DME) blood-glucose meter [FreeStyle Lite Meter] Kit See Rx Instructions .ROUTE .MEDSUPPLY Qty: 1 0RF Rx Instructions: As directed to monitor glucose levels (DME) OneTouch Verio test strips Strip See Rx Instructions .ROUTE .MEDSUPPLY Qty: 250 7RF Rx Instructions: test 8 time daily (DME) blood-glucose meter [OneTouch Verio Flex meter] [facility] [place] Instructions .ROUTE .MEDSUPPLY Qty: 1 0RF Rx Instructions: As directed insulin glargine [Lantus U-100 Insulin] 100 unit/mL solution 64 unit subcut QPM Qty: 10 0RF (DME) BD SafetyGlide Insulin Syringe 0.3 mL 31 gauge x 15/64 syringe See Rx Instructions .ROUTE .MEDSUPPLY Qty: 50 0RF Rx Instructions: 4x/day Primary Care Provider: Geovanna Ibarra Referrals: Geovanna Ibarra MD [Primary Care Provider] - Activity Restrictions/Additional Instructions: Call your doctor in the morning to refill your insulin promptly. Return if you have issues Disposition Disposition: Home, Self Care
--- OUTSIDE RECORDS SUMMARY | 2023-07-08 21:02 | XMS RPT_ITS | CCD ---
Author Name Unknown Address [id number] [place] [address] Organization [facility] Results Test Name Value Interpretation Reference Range Facil ity Clinical Note 07-09-2020 Note Date & Type Note Facility 07-09-2020 Note Patient Outreach ([facility]) FARZANA BARRETT ([id number]) 1990 F Date Time Provider Department 07/09/20 VIDYA FELIZ During your visit today, we recorded the following information about you: Allergies As of Date: 07/09/2020 Noted Allergy Reaction PENICILLINS 09/25/2012 2 - Rash Date Reviewed: 11/06/2019 Reviewed by: Bhavani Gonzáles - Fully Assessed Order(s):SARS-COVID VACCINE 1ST DOSE APPT [[id number]] Order #: [id number] FUTURE Prescriptions as of 07/09/2020 Sig: IBUPROFEN 800 MG TABLET Take 1 tablet by mouth every * INSULIN LISPRO (U-100) 100 UN* Inject 16 Units subcutaneousl* INSULIN DETEMIR (U-100) 100 U* 20 units in AM and 20 in the * LEVOTHYROXINE 75 MCG TABLET Take 1 tablet by mouth once d* Patient taking differently: Take 112 mcg by mouth once da* PEN NEEDLE, DIABETIC 31 GAUGE* Inject 6 times daily or as in* GLUCAGON (HUMAN RECOMBINANT) * Inject (1)one mg for insulin * BLOOD SUGAR DIAGNOSTIC STRIPS Test blood sugar(s) 6 daily. * BIOTIN 10,000 MCG CAPSULE Take 1 capsule by mouth once * LANCETS use as directed to TEST 7 PAYTON* BLOOD SUGAR DIAGNOSTIC STRIPS Test blood sugar(s) 7 times d* More... 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 Type 1 diabetes mellitus without complication (*03/27/2016 More... Encounter Status:Closed by CHANDNI LYNCH on 07/12/20 [facility] Summary Purpose Family History No Family History Records FoundNo Family History Records Found Advance Directives No Advanced Directives Records FoundNo Advanced Directives Records Found Additional Source Comments INFORMATION SOURCE (unrecogn ized section and content) DATE CREATED AUTHOR AUTHOR'S ORGANIZ ATION 06/18/2021 [facility] FOR RECORDS PERTAINING TO PATIENTS WHO ARE OR HAVE BEEN ENROLLED IN A CHEMICAL DEPENDENCY/SUBSTANCEABUSE PROGRAM, SOME INFORMATION MAY BE OMITTED. This clinical summary was aggregated from multiple sources. Caution should be exercised in using it in the provision of clinical care. This summary normalizes information from multiple sources, and as a consequence, information in this document may materially change the coding, format and clinical context of patient data. In addition, data may be omitted in some cases. CLINICAL DECISIONS SHOULD BE BASED ON THE PRIMARY CLINICAL RECORDS. [employer] provides no warranty or guarantee of the accuracy or completeness of information in this document.
[2023-07-08 21:03] LABS: Bacteria 0 SEEN /hpf (None Seen); Mucous, Urine 0 SEEN /hpf (<or=2+); Red Blood Cells-Urine 0 SEEN /hpf (0-5); Squamous Epithelial Cells - UA 0 SEEN /hpf (5-10); White Blood Cells 0 SEEN /hpf (0-5)
[2023-07-08 21:04] LABS: Absolute Lymphocyte Count 2.84 X10^3/uL (0.83-4.51); Absolute Neutrophil Count 7.1 X10^3/uL (2.0-7.7); Basophil# 0.04 X10^3/uL; Basophil% 0.4 % (0-1); Eosinophil# 0.06 X10^3/uL; Eosinophils% 0.6 % (0-5); Hematocrit 42.4 % (37-47); Hemoglobin 14.3 g/dL (12.0-15.0); Lymphocyte # 2.84 X10^3/ul (0.83-4.51); Lymphocyte % 26.2 % (19-41); Mean Corp Hgb Conc 33.7 g/dL (32-36); Mean Corpuscular Hgb 30.2 pg (27.0-32.0); Mean Corpuscular Volume 89.5 fL (81-99); Mean Platelet Vol. 9.7 fl (6.2-12.0); Monocyte# 0.74 X10^3/uL; Monocyte% 6.8 % (0-10); NRBC Flagged by Analyzer 0 % (0-5); Neutrophil # 7.11 X10^3/uL (2.7-7.7); Neutrophil % 65.7 % (47-70); Platelet Count 199 K/mm3 (150-450); RBC Distribution Width CV 11.3 % (11.6-14.6); RBC Distribution Width SD 36.9 fl (35.1-43.9); Red Blood Count 4.74 M/mm3 (4.2-5.4); White Blood Count 10.8 K/mm3 (4.4-11.0)
[2023-07-08 21:05] LABS: Color, Urine Straw (Yellow); Glucose, Dipstick 1000 mg/dl (Normal); Ketone-Dipstick 50 mg/dl (Negative); Leukocyte Esterase-Dipstick Negative /ul (Negative); Nitrite-Dipstick Negative (Negative); Occult Blood-Urine Negative /ul (Negative); Protein-Dipstick Negative (Negative); Urine Bilirubin Dipstick Negative (Negative); Urine Clarity Clear (Clear); Urine Urobilinogen Normal (Normal)
[2023-07-08] MEDS: 0.9% Normal Saline (1000mL) 1,000 ML 999 ML IV ×2 (21:17→22:24)
[2023-07-08 21:27] LABS: Blood Gas Specimen Type VEN; O2 Delivery Device Room Air; SITE Not entered; VBG BASE EXCESS -2 mmol/L (-1.0-3.5); VBG Bicarbonate 24 mmol/L (22-26); VBG PO2 51 mmHg (25-40); VBG SO2 85 % (50-70); VBG TCO2 25 mmol/L (23-33); VBG pCO2 39.3 mmHg (41-51); VBG pH 7.39 (7.32-7.42)
[2023-07-08 21:58] LABS: Anion Gap 8 (5-15); BUN 17 mg/dL (7-18); BUN/Creat Ratio 17.7 RATIO (10-20); Calcium,Total 8.8 mg/dL (8.5-10.1); Chloride 97 mmol/L (98-107); Creatinine, Serum 0.96 mg/dL (0.55-1.02); EST Glomerular Filtration Rate 71 mL/min (>60); Est Glom Filt Rate - Afr Amer 86 mL/min (>60); Estimated Creatinine Clearance 95.95 ml/min; Glucose 610 mg/dL (74-106); Potassium 4.2 mmol/L (3.5-5.1); Sodium Level 128 mmol/L (136-145)
[2023-07-08 22:00] VITALS: PULSE 123
[2023-07-08] MEDS: Insulin Glargine-YFGN 100 UNIT/ML Pen 64 UNIT SC (22:08)
[2023-07-08] MEDS: Insulin Lispro 100 UNIT/ML INSULN.PEN 10 UNIT SC (22:11)
[2023-07-08 23:04] VITALS: BP 113/76; PULSE 105; RESP 16; TEMP 36.3; O2SAT 100
[2023-07-08 23:13] LABS: Bedside Glucose 461 mg/dL (74-106)
== END 2023-07-08 23:08 | disposition home or self-care (01) ==
PROVIDERS: Physician Assistant; Emergency Provider Emergency Medicine; PCP Internal Medicine; Visit Provider Emergency Medicine
DX: E10.65 Type 1 diabetes mellitus with hyperglycemia (principal); Z79.4 Long term (current) use of insulin; Z96.41 Presence of insulin pump (external) (internal); Z87.891 Personal history of nicotine dependence
CPT/HCPCS: 80048; 81001; 82009; 82803; 82962; 85025; 96360; 96361; 96372; 99285; J7030; A4216

== ENCOUNTER → 2023-08-27 | Outpatient (CLI) | payer MEDICAID, SELFPAY ==
--- NOTE | 2023-08-27 12:32 | US_ITS ---
STUDY: ULTRASOUND OF THE FEMALE PELVIS - COMPLETE REASON FOR EXAM: Female, 33 years old. pelvic pain, follow up on cyst LMP: March 07, 2022. TECHNIQUE: Transabdominal and Transvaginal TECHNICAL QUALITY: Adequate. COMPARISON: Comparison is made with prior study dated July 02, 2023. FINDINGS: The uterus is anteverted and is in a midline position. The uterus measures 9 cm x 5.3 cm x 4 cm. Normal uterine cervix. The endometrium measures 8.6 mm in thickness, and is hyperechoic. There is no demonstrated endometrial mass. There is no demonstrated myometrial mass. I.U.D. - The patient does have an I.U.D. in the fundal portion of the endometrium. The right ovary is visualized. The right ovary measures 3.4 cm x 2.4 cm x 2.9 cm. There is no right ovarian cyst or ovarian mass. There is no visualized right adnexal mass or complex lesion. There is normal arterial and normal venous vascularity. The left ovary is visualized. The left ovary measures 2.9 cm x 3 cm x 4.6 cm cm. There is a 2.5 cm x 2.5 cm x 1.9 cm complex cyst. There is no visualized left adnexal mass or complex lesion. There is normal arterial and normal venous vascularity. There is minimal fluid in the cul-de-sac. The pre void volume of the bladder was 421 ml. The post void volume of the bladder was ml. US/Pelvic w/ Transvaginal IMPRESSION: Stable examination. Electronically Signed: Phong Cunningham MD at 15:43 EDT ,
== END | disposition home or self-care (01) ==
LOC: US 12:29
PROVIDERS: PCP Internal Medicine; Referring Provider Nurse Practitioner Women's Health; Visit Provider Nurse Practitioner Women's Health
DX: R10.2 Pelvic and perineal pain (principal); N93.9 Abnormal uterine and vaginal bleeding, unspecified
CPT/HCPCS: 76830; 76856

== ENCOUNTER → 2023-12-13 | Outpatient (CLI) | payer BC, SELFPAY ==
[2023-12-13 12:48] LABS: ALB/GLOB Ratio 0.9 RATIO (0.9-2.4); AST(SGOT) 19 U/L (15-37); Alanine Aminotransfer ALT/SGPT 21 U/L (13-56); Albumin, Serum 3.3 g/dL (3.2-5.0); Alkaline Phosphatase 89 U/L (45-117); Anion Gap 6 (5-15); BUN 15 mg/dL (7-18); BUN/Creat Ratio 19.7 RATIO (10-20); Calcium,Total 8.7 mg/dL (8.5-10.1); Chloride 105 mmol/L (98-107); Cholesterol 150 mg/dL (200); Creatinine, Serum 0.76 mg/dL (0.55-1.02); EST Glomerular Filtration Rate 92 mL/min (>60); Est Glom Filt Rate - Afr Amer 112 mL/min (>60); Free T3 2.6 pg/mL (2.18-3.98); Globulin 3.6 g/dL (2.2-4.2); Glucose 162 mg/dL (74-106); High Density Lipoprotein 48 mg/dL; Protein, Total 6.9 g/dL (6.4-8.2); Sodium Level 136 mmol/L (136-145); T4 Free Direct 1.03 ng/dL (0.76-1.46); Thyroid Stim Hormone (TSH) 2.11 uIU/mL (0.358-3.74); Triglycerides 95 mg/dL; Very Low Density Lipoprotein 19 mg/dL (5-40)
== END | disposition home or self-care (01) ==
PROVIDERS: PCP Internal Medicine; Referring Provider Internal Medicine Endocrinology, Diabetes & Metabolism; Visit Provider Internal Medicine Endocrinology, Diabetes & Metabolism
DX: E10.65 Type 1 diabetes mellitus with hyperglycemia (principal); Z96.41 Presence of insulin pump (external) (internal); E05.90 Thyrotoxicosis, unspecified without thyrotoxic crisis or storm
CPT/HCPCS: 36415; 80053; 80061; 82043; 82570; 84439; 84443; 84481

== ENCOUNTER 2024-06-05 12:16 | Emergency (ER) | payer BC, SELFPAY ==
[2024-06-05 12:17] VITALS: BP 146/105; PULSE 135; RESP 17; TEMP 36.7; O2SAT 100
--- NOTE | 2024-06-05 12:37 | EDS_ITS ---
HPI HPI - Psych History of Present Illness Chief Complaint: Mental Health Informant: patient Onset/Context/Timing Onset: Today Current Severity: Moderate Maximum Severity: Moderate Associated Symptoms Associated Symptoms - Psych: Positive for Depressed and Suicidal Thoughts Specific plan (suicidal thought): Unknown at this time. Narrative Narrative: 34-year-old female history of diabetes and depression. States she is not upcoming appointment with the counseling center. She has not seen them as of yet. She currently does not have a psychiatrist or psychologist. Patient will not give me any history. Reportedly per police she was suicidal today. Made a direct threat to her boyfriend. Police were called and they brought her up. Patient is refusing to talk to myself and our staff and will not talk about any psychiatric complaints. [facility] Medical History Insulin pump titration Diabetes mellitus type 1 Influenza A COVID-19 Obesity Vaginal delivery Diabetes in undelivered History of premature rupture of membranes (PPROM) History of pre-term labor depression Gestational thrombocytopenia History of tetanus, diphtheria, and acellular pertussis booster vaccination (Tdap) Presence of insulin pump Arm fracture Hypothyroid Herpes genitalis Depression Home Medications ?Medication ?Instructions ?Recorded ?Last Taken ?Type FreeStyle Lite Meter #1 ea 08/13/20 Unknown Rx (blood-glucose meter) blood-glucose meter (OneTouch #1 ea 09/11/20 Unknown R x Verio Flex Meter) insulin glargine 100 unit/mL 64 unit (0.64 mL) subcut QPM #10 mL 03/09/22 Unknown Rx subcutaneous solution (Lantus U-100 Insulin) insulin syringe,safety needle 0.3 #50 ea 03/09/22 Unkn own Rx mL 31 gauge x 15/64 (BD SafetyGlide Insulin Syringe) FreeStyle Navi 3 Sensor #6 ea 08/04/22 Unknown Rx (blood-glucose sensor) PNV 158-iron 13.5 mg-folic 0.5 cap PO 08/04/22 Unknown History mg-omega 3-dha 150 mg-epa-fish capsule (Natavi PNV) glucagon (human recombinant) 1 mg 1 mg subcut Q20M PRN hypoglycemia 08/04/22 Unknown Rx solution for injection #2 ea multivitamin (Daily Multi-Vitamin 1 tab PO DAILY 08/04 Unknown History tablet) levonorgestrel 20.4 mcg/24 hr (up 1 device intrauterin e ONCE 08/23/22 Unknown History to 8 yrs) 52 mg intrauterine device (Liletta) estradiol 1 mg tablet (Estrace) 1 mg PO QDAY #30 tabs 06/28/23 Unknown Rx insulin lispro 100 unit/mL 170 unit (1.7 mL) continuou s 07/09/23 Unknown Rx subcutaneous solution subcutaneous infusion DAILY #50 mL Guardian 4 Glucose Sensor #10 ea 11/29/23 Unknown Rx (blood-glucose sensor) methimazole 5 mg tablet 5 mg PO DAILY #30 tabs 12/12 Unknown Rx blood sugar diagnostic (OneTouch #250 ea 02/01/24 Unkn own Rx Verio test strips) Allergy/AdvReac Type Severity Reaction Status Date / Time Penicillins Allergy Intermediate Unknown Verified 07/19/23 10:40 Family History Grandfather Diabetes Mother Anemia Surgical History H/O removal of cyst Social History Smoking Status: Current every day smoker tobacco type: e-cigarettes second hand exposure: Yes alcohol intake: current substance use type: does not use caffeine: Yes what type of physical activity do you participate in: none seatbelt use: sometimes do you feel safe at home: Yes additional social history: 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 ROS ROS ED ROS Narrative Patient is a limited informant due to her not wanting to talk when she denies being ill recently. Constitutional Constitutional ED: Denies chills or fever(s) Eyes Eyes: Denies blurry vision ENT ENT ED: Denies ear pain Cardiovascular Cardiovascular: Denies chest pain Respiratory/Chest Respiratory/Chest: Denies cough or dyspnea Gastrointestinal Gastrointestinal: Denies abdominal pain Genitourinary Genitourinary ED: Denies dysuria or hematuria Musculoskeletal Musculoskeletal: Denies arthralgias Integumentary Denies abscess Neurologic Neurologic: Denies headache(s) Psychiatric Psychiatric: Reports depression and suicidal thoughts Endocrine Endocrinology: Denies polydipsia Hematologic/Lymphatic Hematologic/Lymphatic: Denies easy bleeding Allergic/Immunologic Allergic/Immunologic ED: Denies mouth swelling EXAM Physical Exam Narrative Exam Narrative: 34-year-old female sitting upright in bed. Is not very cooperative at this time. Refuses to speak about her mental health. Vital signs are stable. Her heart rate is 120. Initially was 135. She is afebrile. She does not look septic or toxic. No obvious sign of toxidrome. No smell of alcohol. H EENT exam pupils round react light. Moist mucous membranes. Piercings. No trauma to her face or head. Neck nontender. No trauma. Lungs clear to auscultation bilaterally. Heart tachycardic 120 no murmur. Chest wall ribs nontender. Abdomen soft nontender. Moving all 4 extremities. Nontender. No lacerations. No track avila. Normal strength. No edema. Back nontender. Neurologically she is awake and alert. Answering questions following commands. Const Vital Signs: 06/05/24 12:17 Temperature 98.1 F Temperature Source Temporal Pulse Rate 135 H Respiratory Rate 17 Blood Pressure 146/105 H Blood Pressure Mean 118 Pulse Ox 100 Oxygen Delivery Method Room Air Positive well nourished and well developed; Negative for cachectic, contractures or unkempt General Appearance ED: well developed and NAD; Negative for unkempt, cachectic, contractures or pallor Nutritional Appearance: Negative for cachectic HEENT Reports moist mucous membranes normocephalic and atraumatic Eyes PERRL and EOMs intact bilaterally Neck no lymphadenopathy, supple and no JVD Resp normal respiratory effort and clear to auscultation bilaterally Cardio S1 normal heart sound, S2 normal heart sound and no murmurs Rate: regular rate Rhythm: regular rhythm GI non-tender, non-distended and no masses Inspection: Negative for abdominal distention Palpation: soft; Negative for tender or guarding Back/Spine no CVA tenderness Extremity normal to inspection General Extremety ED: Negative for edema or tenderness General Extremity: Negative for edema Neuro oriented x3, CN's II-XII intact bilaterally and no sensory deficits noted Sensorium / Orientation: alert, oriented to person, oriented to place and oriented to time Motor Exam: strength 5/5 throughout Psych speech normal and activity/motor behavior normal; Negative for cooperative or affect normal Psych Narrative: Depressed. Not forthcoming with information. Appearance: grossly normal, appropriate and well kempt; Negative for unkempt Attitude: calm, engaged, withdrawn, uncooperative and guarded Activity / Motor Behavior: appropriate eye contact Speech: normal speech Mood & Affect: depressed Thought Process: normal thought process Attention / Concentration: attention grossly intact Skin General Skin Exam: Negative for jaundice or pallor Lesions: no lesions Rashes: no rashes Trauma: Negative for abrasion or laceration Wounds: Negative for wounds noted MDM MDM MDM Narrative Medical decision making narrative: 34-year-old female history of depression with reported threat to harm herself. Reportedly coming from her boyfriend the history. Patient is not forthcoming with information and refuses to talk about. She was brought in by police who filled out a pink slip. Exam is benign. She will go through ED mental health labs and evaluation I suspect she will need admission and sent to a psychiatric facility. Patient will be medicated with Geodon. We will also take her insulin pump off for her since she refuses to eat. Our criminal justice social worker spoke to the patient. Patient did actually talk to her. She agrees the patient is suicidal and needs placement and is starting to work on that. We are still awaiting her labs. Patient does seem a bit better after the Geodon according to staff. History & Record Review Discussion w/independent historian: Patient Lab Data Attestation: I reviewed the patient's lab results. Lab results narrative: CBC shows a normal white count of 10. H&H 13 and 38. Platelets 241. Electrolytes show potassium 3.4. Gap 8. BUN 9 creatinine 0.54. Glucose 137. Serum test negative. Alcohol negative. Labs: Laboratory Results - last 24 hr 06/05/24 06/05/24 12:43 13:15 WBC 10.5 RBC 4.40 Hgb 13.7 Hct 38.6 MCV 87.7 MCH 31.1 MCHC 35.5 RDW Std Deviation 37.2 RDW Coeff of Mylene 11.5 L Plt Count 241 MPV 9.4 Immature Gran % (Auto) 0.500 Neut % (Auto) 74.4 H Lymph % (Auto) 16.7 L Blair % (Auto) 7.5 Eos % (Auto) 0.6 Baso % (Auto) 0.3 Absolute Neuts (auto) 7.8 H Absolute Lymphs (auto) 1.76 Nucleated RBC % 0 Sodium 137 Potassium 3.4 L Chloride 104 Carbon Dioxide 25.0 Anion Gap 8 BUN 9 Creatinine 0.54 L Estim Creat Clear Calc 160.69 Est GFR (MDRD) Af Amer 165 Est GFR (MDRD) Non-Af 137 BUN/Creatinine Ratio 16.6 Glucose 137 H Calcium 9.2 Serum , Qual NEGATIVE Ethyl Alcohol < 3.0 POC Glucose 168 H Discharge Plan Triage Chief Complaint: Mental Health ED Provider: Alexis Diaz Dx/Rx/DC Orders Clinical Impression: Depression, Suicidal thoughts, History of diabetes mellitus Prescriptions: No Action Natavi PNV 13.5 mg iron- 0.5 mg-150 mg capsule PO multivitamin [Daily Multi-Vitamin] Tablet 1 tab PO DAILY Glucagon Emergency Kit (human) 1 mg recon soln 1 mg SC Q20M PRN (Reason: hypoglycemia) Qty: 2 6RF Rx Instructions: until target blood sugar attained (DME) FreeStyle Navi 3 Sensor Device See Rx Instructions .Route Qty: 6 3RF Rx Instructions: As directed Liletta 20.4 mcg/24 hrs (8 yrs) 52 mg intrauterine device 1 device intrauterine ONCE Rx Instructions: as a single dose estradiol [Estrace] 1 mg tablet 1 mg PO QDAY Qty: 30 0RF (DME) blood-glucose meter [FreeStyle Lite Meter] Kit See Rx Instructions .ROUTE .MEDSUPPLY Qty: 1 0RF Rx Instructions: As directed to monitor glucose levels (DME) blood-glucose meter [OneTouch Verio Flex meter] [facility] [place] [facility] See Rx Instructions .ROUTE .MEDSUPPLY Qty: 1 0RF Rx Instructions: As directed insulin glargine [Lantus U-100 Insulin] 100 unit/mL solution 64 unit subcut QPM Qty: 10 0RF (DME) BD SafetyGlide Insulin Syringe 0.3 mL 31 gauge x 15/64 syringe See Rx Instructions .ROUTE .MEDSUPPLY Qty: 50 0RF Rx Instructions: 4x/day insulin lispro 100 unit/mL solution 170 unit continuous subcutaneous infusion DAILY Qty: 50 6RF (DME) Guardian 4 Glucose Sensor Device See Rx Instructions .Route Qty: 10 6RF Rx Instructions: As directed methimazole 5 mg tablet 5 mg PO DAILY Qty: 30 5RF (DME) OneTouch Verio test strips Strip See Rx Instructions .ROUTE .MEDSUPPLY Qty: 250 7RF Rx Instructions: test 8 time daily Primary Care Provider: Geovanna Ibarra Referrals: Geovanna Ibarra MD [Primary Care Provider] - Print Language: Congolese Disposition Disposition: Psychiatric Hospital or Unit
[2024-06-05] MEDS: Ziprasidone IM 20 MG/ML VIAL IM (12:51)
[2024-06-05 13:04] VITALS: BMI 34.5
[2024-06-05 13:06] LABS: Bedside Glucose 168 mg/dL (74-106)
--- NOTE | 2024-06-05 13:06 | ED.RN ---
Pt refuses to answer any questions regarding current situation or mental health. Pt remains belligerent, states she is wearing an insulin pump but does not have a sensor connected. The pump is infusing baseline Humalog despite not having sensor connected. I haven't eaten in days, and won't eat, eventually I'll just crash. Pt informed insulin pump would have to be removed, pt refuses. Luke ordered by , pt accepted injection and allowed removal of pump with police and security standing by.
[2024-06-05 13:45] LABS: Alcohol, Blood (Medical)-Serum < 3.0 mg/dL
[2024-06-05 13:46] LABS: Internal QC Validated? YES +Cl - CLEAR BKGD; Pregnancy, Serum, hCG Quali. NEGATIVE Negative; Record Kit Lot#, Serum Preg. 885059
[2024-06-05 13:51] LABS: Absolute Lymphocyte Count 1.76 X10^3/uL (0.83-4.51); Absolute Neutrophil Count 7.8 X10^3/uL (2.0-7.7); Anion Gap 8 (5-15); BUN 9 mg/dL (7-18); BUN/Creat Ratio 16.6 RATIO (10-20); Basophil# 0.03 X10^3/uL; Basophil% 0.3 % (0-1); Calcium,Total 9.2 mg/dL (8.5-10.1); Chloride 104 mmol/L (98-107); Creatinine, Serum 0.54 mg/dL (0.55-1.02); EST Glomerular Filtration Rate 137 mL/min (>60); Eosinophil# 0.06 X10^3/uL; Eosinophils% 0.6 % (0-5); Est Glom Filt Rate - Afr Amer 165 mL/min (>60); Estimated Creatinine Clearance 160.69 ml/min; Glucose 137 mg/dL (74-106); Hematocrit 38.6 % (37-47); Hemoglobin 13.7 g/dL (12.0-15.0); Lymphocyte # 1.76 X10^3/ul (0.83-4.51); Lymphocyte % 16.7 % (19-41); Mean Corp Hgb Conc 35.5 g/dL (32-36); Mean Corpuscular Hgb 31.1 pg (27.0-32.0); Mean Corpuscular Volume 87.7 fL (81-99); Mean Platelet Vol. 9.4 fl (6.2-12.0); Monocyte# 0.79 X10^3/uL; Monocyte% 7.5 % (0-10); NRBC Flagged by Analyzer 0 % (0-5); Neutrophil # 7.83 X10^3/uL (2.7-7.7); Neutrophil % 74.4 % (47-70); Platelet Count 241 K/mm3 (150-450); Potassium 3.4 mmol/L (3.5-5.1); RBC Distribution Width CV 11.5 % (11.6-14.6); RBC Distribution Width SD 37.2 fl (35.1-43.9); Sodium Level 137 mmol/L (136-145); White Blood Count 10.5 K/mm3 (4.4-11.0)
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
--- NOTE | 2024-06-05 15:04 | CM.ED ---
Social Work Contacted [facility], both unable to consider patient due to insulin pump. [facility] able to consider patient adn have a bed open on their female adult unit, referral sent. Bruna Cruz, HYDRAULIC BLOCKER, STABLE HAND
[2024-06-05 15:10] LABS: Amphetamine Urine NEGATIVE (<1000 ng/mL); Barbiturate Urine VISTA NEGATIVE (< 200 ng/mL); Benzodiazepine Urine VISTA NEGATIVE (< 200 ng/mL); Cocaine Urine VISTA NEGATIVE (< 300 ng/mL); Ecstacy Urine VISTA NEGATIVE (< 500 ng/mL); Methadone Urine VISTA NEGATIVE (< 300 ng/mL); PCP Urine VISTA NEGATIVE (< 25 ng/mL); THC Urine VISTA NEGATIVE (< 50 ng/mL); Vista UDS pH Range 6
[2024-06-05 15:14] LABS: Bedside Glucose 96 mg/dL (74-106)
--- NOTE | 2024-06-05 15:34 | CM.ED ---
Social Work [facility] able to accept patient. Admitting physician is Dr. Vazquez, patient will be admitted to dual diagnostic unit, room 103A. [id number] [phone]. [place] slip faxed. Bruna Cruz, PAINT SUPERVISOR, RETAIL SECURITY PROFESSIONAL
--- NOTE | 2024-06-05 15:48 | ED.RN ---
ACCEPTED AT [facility] AT [address]
--- NOTE | 2024-06-05 16:20 | ED.RN ---
ATTEMPTED TO CALL REPORT TO [facility]. ON HOLD FOR 6 MINUTES.
--- NOTE | 2024-06-05 16:40 | ED.RN ---
ATTEMPTED TO CALL REPORT TO [facility] FOR THE SECOND TIME W/ NO ANSWER BY THE RECEIVING FACILITY.
--- NOTE | 2024-06-05 17:34 | ED.RN ---
REPORT CALLED TO SUZANNE MEZA. NO FURTHER QUESTIONS BY THE RECEIVING NURSE AT THIS TIME. NOTIFIED OF CURRENT RIDE ETA OF 1899
[2024-06-05 18:07] VITALS: BP 124/78; PULSE 135; RESP 16; TEMP 37.6; O2SAT 98
[2024-06-05 18:23] LABS: Bedside Glucose 295 mg/dL (74-106)
[2024-06-05] MEDS: Insulin Lispro 100 UNIT/ML INSULN.PEN 8 UNIT SC (19:02)
[2024-06-05 19:04] VITALS: PULSE 132; RESP 16; O2SAT 98
[2024-06-05 19:05] VITALS: TEMP 37.2
[2024-06-05 19:13] VITALS: BP 124/78; PULSE 132; RESP 16; TEMP 37.2; O2SAT 98
[2024-06-05 19:51] VITALS: PULSE 125; RESP 18; O2SAT 98
[2024-06-05 20:07] LABS: Bedside Glucose 344 mg/dL (74-106)
== END 2024-06-05 20:06 ==
LOC: ED 12:53
PROVIDERS: Emergency Provider Emergency Medicine; PCP Internal Medicine; Visit Provider Emergency Medicine
DX: F32.A Depression, unspecified (principal); E10.9 Type 1 diabetes mellitus without complications; Z79.4 Long term (current) use of insulin; R45.851 Suicidal ideations; Z96.41 Presence of insulin pump (external) (internal); E03.9 Hypothyroidism, unspecified; Z79.899 Other long term (current) drug therapy; F17.290 Nicotine dependence, other tobacco product, uncomplicated
CPT/HCPCS: 36415; 80048; 80307; 82077; 82962; 84703; 85025; 96372; 99285; J3486

== ENCOUNTER 2024-07-11 16:14 | Inpatient (IN) | payer BC, SELFPAY ==
[2024-07-11] VITALS (19 sets, daily range): BP systolic 81–140; BP diastolic 47–96; PULSE 13–142; RESP 16–40; TEMP 36.6–37.3; O2SAT 98–100; BMI 31.3
[2024-07-11 16:37] LABS: Bedside Glucose > 500 mg/dL (74-106)
--- NOTE | 2024-07-11 16:47 | EX.ED.DYSGE1 ---
HPI History of Present Illness Chief Complaint: Hyperglycemia Informant: patient Narrative Narrative: Brought in by EMS after mom called for a well check as patient would not answer her phone. Found unresponsive. She reports she ran out of insulin yesterday. She is diabetic. Glucose too high to count. There was vomiting. [facility] Medical History Insulin pump titration Diabetes mellitus type 1 Influenza A COVID-19 Obesity Vaginal delivery Diabetes in undelivered History of premature rupture of membranes (PPROM) History of pre-term labor depression Gestational thrombocytopenia History of tetanus, diphtheria, and acellular pertussis booster vaccination (Tdap) Presence of insulin pump Arm fracture Hypothyroid Herpes genitalis Depression Home Medications ?Medication ?Instructions ?Recorded ?Last Taken ?Type FreeStyle Lite Meter #1 ea 08/13/20 Unknown Rx (blood-glucose meter) blood-glucose meter (OneTouch #1 ea 09/11/20 Unknown Rx Verio Flex Meter) insulin glargine 100 unit/mL 64 unit (0.64 mL) subcut QPM #10 mL 03/09/22 Unknown Rx subcutaneous solution (Lantus U-100 Insulin) insulin syringe,safety needle 0.3 #50 ea 03/09/22 Unknown Rx mL 31 gauge x 15/64 (BD SafetyGlide Insulin Syringe) FreeStyle Navi 3 Sensor #6 ea 08/04/22 Unknown Rx (blood-glucose sensor) PNV 158-iron 13.5 mg-folic 0.5 cap PO 08/04/22 Unknown History mg-omega 3-dha 150 mg-epa-fish capsule (Natavi PNV) glucagon (human recombinant) 1 mg 1 mg subcut Q20M PRN hypoglycemia 08/04/22 Unknown Rx solution for injection #2 ea multivitamin (Daily Multi-Vitamin 1 tab PO DAILY 08/04/22 Unknown History tablet) levonorgestrel 20.4 mcg/24 hr (up 1 device intrauterine ONCE 08/23/22 Unknown History to 8 yrs) 52 mg intrauterine device (Liletta) estradiol 1 mg tablet (Estrace) 1 mg PO QDAY #30 tabs 06/28/23 Unknown Rx insulin lispro 100 unit/mL 170 unit (1.7 mL) continuous 07/09/23 Unknown Rx subcutaneous solution subcutaneous infusion DAILY #50 mL Guardian 4 Glucose Sensor #10 ea 11/29/23 Unknown Rx (blood-glucose sensor) methimazole 5 mg tablet 5 mg PO DAILY #30 tabs 12/13/23 Unknown Rx blood sugar diagnostic (OneTouch #250 ea 02/01/24 Unknown Rx Verio test strips) Allergy/AdvReac Type Severity Reaction Status Date / Time Penicillins Allergy Intermediate Unknown Verified 07/19/23 10:40 Family History Grandfather Diabetes Mother Anemia Surgical History H/O removal of cyst Social History housing: house Smoking Status: Current every day smoker tobacco type: e-cigarettes second hand exposure: Yes alcohol intake: current substance use type: does not use caffeine: Yes what type of physical activity do you participate in: none seatbelt use: sometimes do you feel safe at home: Yes additional social history: 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 ROS ROS ED Review of Systems ROS Unobtainable: due to mental condition EXAM Physical Exam Const Vital Signs: 07/11/24 16:14 07/11/24 16:22 07/11/24 16:22 Temperature 98 F Temperature Source Temporal Pulse Rate 142 H 138 H Respiratory Rate 32 H 27 H Respiratory Pattern Tachypnea Blood Pressure 91/47 L Blood Pressure Mean 61 Pulse Ox 99 99 Oxygen Delivery Method Room Air 07/11/24 16:34 07/11/24 17:14 07/11/24 17:45 Temperature Temperature Source Pulse Rate 132 H 131 H Respiratory Rate 24 H 24 H Respiratory Pattern Blood Pressure 81/47 L 107/57 L 119/55 L Blood Pressure Mean 58 73 71 Pulse Ox 100 Oxygen Delivery Method 07/11/24 18:00 07/11/24 18:09 07/11/24 18:10 Temperature 98.1 F 98.1 F Temperature Source Axillary Pulse Rate 100 100 100 Respiratory Rate 16 16 20 H Respiratory Pattern Blood Pressure 127/79 H 127/79 H 113/60 Blood Pressure Mean 95 95 77 Pulse Ox 98 98 98 Oxygen Delivery Method Room Air 07/11/24 18:14 07/11/24 18:29 07/11/24 18:44 Temperature 98.1 F 98.2 F 98.1 F Temperature Source Axillary Axillary Axillary Pulse Rate 112 H 118 H 13 L Respiratory Rate 25 H 24 H 24 H Respiratory Pattern Blood Pressure 130/96 H 123/62 H 127/59 H Blood Pressure Mean 107 82 81 Pulse Ox 100 98 98 Oxygen Delivery Method Room Air 07/11/24 18:59 07/11/24 19:14 Temperature 98.3 F 98.3 F Temperature Source Axillary Oral Pulse Rate 130 H 130 H Respiratory Rate 24 H 26 H Respiratory Pattern Blood Pressure 109/60 108/79 Blood Pressure Mean 76 88 Pulse Ox 98 100 Oxygen Delivery Method Room Air Positive well nourished Constitutional Narrative: There are some confusion however following commands with moving all 4 extremities. HEENT Reports dry mucous membranes normocephalic and atraumatic Mouth ED: Yes dry mucous membranes Mouth: dry mucous membranes Eyes General Eye ED: Yes normal appearance of both eyes Neck full ROM Chest Wall Chest: Negative for tenderness Resp normal respiratory effort and normal air movement Effort and Inspection: symmetric chest movement; Negative for respiratory distress Cardio regular rhythm and no murmurs Rate: tachycardic Peripheral Pulses: pulses 2+ throughout GI normal to inspection, nondistended, normoactive bowel sounds and non-tender Palpation: Negative for guarding or rebound tenderness present Extremity normal to inspection General Extremety ED: Negative for edema or tenderness General Extremity: Negative for edema Neuro no sensory deficits noted Neuro Narrative: Alert to person and place, with confusion. Sensorium / Orientation: awake and alert Skin no rashes or lesions noted and no wounds MDM MDM MDM Narrative Medical decision making narrative: Interventions / MDM: Differential diagnosis: Diabetic ketoacidosis, metabolic encephalopathy, leukocytosis, lactic acidosis, DAQUAN, sepsis Diagnosis considered but do not suspect: UTI, pneumonia lab and imaging negative. Rhabdomyolysis, lab normal. Thyroid storm, T4 not significant. My EKG interpretation: Sinus rate 127, no ST or T wave changes. Imaging independently reviewed and interpreted by myself: 1 view chest x-ray: No acute process. External documents reviewed: N/A Test considered but not ordered:N/A ED course: Patient glucose greater than 500. Tachycardic dry mucosal membranes blood pressure 81/47. Sepsis labs were ordered. She will be ordered for 2500 cc normal saline which will cover her for 30 cc/kg and for dry mucosal membranes and her tachycardia. Zofran ordered. DKA labs. She has history of hypothyroidism will check thyroid levels also. 1800: Blood pressure responding to fluids. Sinus tachycardia on EKG. Patient's white count returned at 34.9. Chest x-ray is negative urine negative for infection. Lactic acid 5.7. 30 cc/kg bolus has been ordered previously. Unclear source at this time penicillin allergy. Will cover with antibiotics of cefepime and vancomycin. TSH level 1.3 Free T4 1.6. 181: 2.5 L and. Blood pressure 110s, heart rate 130s. Patient more responsive however still cannot tell me the year. She confirms she ran out of insulin yesterday. She denied any recent cough. She states she felt fine yesterday. She denies any abdominal pain, abdomen is not distended. Soft. Awaiting her renal panel. Will continue fluids for hydration. 184: Glucose 1075 in the lab creatinine 2.04. Hemolyzed potassium 6.8. No EKG changes. Will resend for recheck of potassium. With her DAQUAN, will also send for CPK as unclear on her downtime. She reported yesterday she was normal. pH 7.02. CO2 is 5. She is in no respiratory distress. I did start an insulin drip. Will discuss with hospitalist service for admission. I discussed with Dr. Schilling for admission to ICU. Re-evaluation: stable Disposition discussed with patient/family/significant other: Patient Case discussed with consulting clinician: N/A This note was generated with [employer] dictation software. It may contain incorrect words, spelling, and punctuation that were not noted in checking the note before signing. Lab Data Attestation: I reviewed the patient's lab results. Labs: Laboratory Results - last 24 hr 07/11/24 07/11/24 07/11/24 16:20 16:27 16:52 WBC 34.9 H* RBC 4.95 Hgb 15.1 H Hct 48.4 H MCV 97.8 MCH 30.5 MCHC 31.2 L RDW Std Deviation 45.1 H RDW Coeff of Mylene 12.6 Plt Count 357 MPV 10.7 Immature Gran % (Auto) 2.100 H Neut % (Auto) 89.2 H Lymph % (Auto) 4.4 L [place] % (Auto) 3.8 Eos % (Auto) 0.0 Baso % (Auto) 0.5 Absolute Neuts (auto) 31.2 H Absolute Lymphs (auto) 1.52 Nucleated RBC % 0 [address] Path Review May foll Plt Morphology Comment CLUMPED Polychromasia 1+ Anisocytosis 1+ Sodium 126 L Potassium 6.8 H* Chloride 79 L Anion Gap [employer]MER BUN 43 H Creatinine 2.04 H Estim Creat Clear Calc 40.42 L Est GFR (MDRD) Non-Af 32 L BUN/Creatinine Ratio 21.0 H Glucose 1075 H* Lactic Acid 5.7 H* Calcium 9.7 Phosphorus 12.0 H* Magnesium 3.3 H Total Bilirubin 0.41 AST 18 ALT 17 Alkaline Phosphatase 162 H Total Creatine Kinase 70 Total Protein 8.6 H Albumin 4.6 Globulin 3.9 Albumin/Globulin Ratio 1.2 b-Hydroxybutyric mmol/L 10.5 TSH 1.320 Free T4 1.60 H Urine Color Yellow Urine Clarity Clear Urine pH 5.0 Ur Specific [place] 1.020 Urine Protein 30 H Urine Glucose (UA) 1000 H Urine Ketones 50 H Urine Occult Blood 50 H Urine Nitrite Negative Urine Bilirubin Negative Urine Urobilinogen Normal Ur Leukocyte Esterase 25 H Urine RBC 0-5 SEEN Urine WBC 10-25 SEEN Ur Squamous Epith Cells 0-5 SEEN Urine Bacteria RARE Urine Mucus 0 SEEN Urine Test Negative POC Glucose > 500 H* 07/11/24 17:45 WBC RBC Hgb Hct MCV MCH MCHC RDW Std Deviation RDW Coeff of Mylene Plt Count MPV Immature Gran % (Auto) Neut % (Auto) Lymph % (Auto) [place] % (Auto) Eos % (Auto) Baso % (Auto) Absolute Neuts (auto) Absolute Lymphs (auto) Nucleated RBC % Diff Path Review Plt Morphology Comment Polychromasia Anisocytosis Sodium Potassium Chloride Anion Gap BUN Creatinine Estim Creat Clear Calc Est GFR (MDRD) Non-Af BUN/Creatinine Ratio Glucose Lactic Acid Calcium Phosphorus Magnesium Total Bilirubin AST ALT Alkaline Phosphatase Total Creatine Kinase Total Protein Albumin Globulin Albumin/Globulin Ratio b-Hydroxybutyric mmol/L TSH Free T4 Urine Color Urine Clarity Urine pH Ur Specific [place] Urine Protein Urine Glucose (UA) Urine Ketones Urine Occult Blood Urine Nitrite Urine Bilirubin Urine Urobilinogen Ur Leukocyte Esterase Urine RBC Urine WBC Ur Squamous Epith Cells Urine Bacteria Urine Mucus Urine Test POC Glucose > 500 H* ABG Data ABG results: ABG 07/11/24 18:17 Specimen Type CHARLES Sample Site Not entered VBG pH 7.02 L* VBG pO2 65 H VBG HCO3 5 L VBG Total CO2 5 L VBG O2 Sat (Calc) 81 H VBG Base Excess -26 L POC Mix VBG pCO2 Pt Tmp 18.5 L* O2 Delivery Device Not entered Crit Call To/Read Back Yes Blood Gas Notified Whom Dr Magallanes Blood Gas Notified Time 18:19:00 Radiography Diagnostic Testing: Clinical Impression(s) from Imaging Studies Chest X-Ray 07/11/24 16:56 IMPRESSION: No acute airspace abnormality. Reading Location: [facility] Critical Care Time Critical Care Time: Yes Critical care time (excluding procedures): 30-74 minutes, Discussing w/Patient &/or Family/Real Estate Attorney, Discussing w/Consultants, Arranging Admission or Transfer, Performing Direct Patient Care at Bedside and - (45 minutes) Discharge Plan Dx/Rx/DC Orders Clinical Impression: DKA (diabetic ketoacidoses), Hyperglycemia, DAQUAN (acute kidney injury), Leukocytosis, Lactic acidosis Disposition Disposition: Acute Care [facility] Discharge Date/Time: 07/11/24 21:21
[2024-07-11] MEDS: Ondansetron 4 MG/2 ML Vial IV ×2 (16:56→20:04)
[2024-07-11] MEDS: 0.9% Normal Saline (1000mL) 1,000 ML 999 ML IV ×5 (16:56→21:34)
--- NOTE | 2024-07-11 16:56 | RAD_ITS ---
PROCEDURE: Chest radiograph REASON FOR EXAM: Altered mental status TECHNIQUE: Frontal view of the chest. COMPARISON: None FINDINGS: Cardiomediastinal silhouette is within normal limits. Lungs are clear. No sizable pneumothorax. RAD/Chest 1 View (Portable) IMPRESSION: No acute airspace abnormality. Reading Location: [place]
[2024-07-11 16:58] LABS: Mucous, Urine 0 SEEN /hpf (<or=2+)
[2024-07-11] MEDS: 0.9% Normal Saline (500mL Bag) 500 ML 999 ML IV (17:04)
[2024-07-11 17:05] LABS: Absolute Lymphocyte Count 1.52 X10^3/uL (0.83-4.51); Absolute Neutrophil Count 31.2 X10^3/uL (2.0-7.7); Basophil# 0.18 X10^3/uL; Basophil% 0.5 % (0-1); Hematocrit 48.4 % (37-47); Hemoglobin 15.1 g/dL (12.0-15.0); Lymphocyte # 1.52 X10^3/ul (0.83-4.51); Lymphocyte % 4.4 % (19-41); Mean Corp Hgb Conc 31.2 g/dL (32-36); Mean Corpuscular Hgb 30.5 pg (27.0-32.0); Mean Corpuscular Volume 97.8 fL (81-99); Mean Platelet Vol. 10.7 fl (6.2-12.0); Monocyte# 1.34 X10^3/uL; Monocyte% 3.8 % (0-10); NRBC Flagged by Analyzer 0 % (0-5); Neutrophil # 31.15 X10^3/uL (2.7-7.7); Neutrophil % 89.2 % (47-70); POSITIVE COUNT YES; POSITIVE DIFFERENTIAL YES; Platelet Count 357 K/mm3 (150-450); RBC Distribution Width CV 12.6 % (11.6-14.6); RBC Distribution Width SD 45.1 fl (35.1-43.9); Red Blood Count 4.95 M/mm3 (4.2-5.4); White Blood Count 34.9 K/mm3 (4.4-11.0)
[2024-07-11 17:30] LABS: Color, Urine Yellow (Yellow); Glucose, Dipstick 1000 mg/dl (Normal); Ketone-Dipstick 50 mg/dl (Negative); Nitrite-Dipstick Negative (Negative); Occult Blood-Urine 50 /ul (Negative); Protein-Dipstick 30 mg/dl (Negative); Urine Bilirubin Dipstick Negative (Negative); Urine Clarity Clear (Clear); Urine Urobilinogen Normal (Normal)
[2024-07-11 17:33] LABS: Lactic Acid 5.7 mmol/L (0.0-2.0)
[2024-07-11 17:43] LABS: Differential Indicated SCAN CRITERIA MET
[2024-07-11 18:02] LABS: Bedside Glucose > 500 mg/dL (74-106)
[2024-07-11] MEDS: Cefepime HCl 2 GM in 0.9% Normal Saline (100mL MB+) 100 ML IV (18:08)
[2024-07-11 18:21] LABS: Blood Gas Specimen Type VEN; O2 Delivery Device Not entered; SITE Not entered; VBG BASE EXCESS -26 mmol/L (-1.0-3.5); VBG Bicarbonate 5 mmol/L (22-26); VBG PO2 65 mmHg (25-40); VBG SO2 81 % (50-70); VBG TCO2 5 mmol/L (23-33); VBG pCO2 18.5 mmHg (41-51); VBG pH 7.02 (7.32-7.42)
[2024-07-11 18:25] LABS: Leukocyte Esterase-Dipstick 25 /ul (Negative)
[2024-07-11 18:33] LABS: ALB/GLOB Ratio 1.2 RATIO (0.9-2.4); AST(SGOT) 18 U/L (<=31); Alanine Aminotransfer ALT/SGPT 17 U/L (<=34); Albumin, Serum 4.6 g/dL (3.5-5.0); Alkaline Phosphatase 162 U/L (35-104); BUN 43 mg/dL (4-19); Calcium,Total 9.7 mg/dL (7.6-11.0); Chloride 79 mmol/L (98-108); Creatinine, Serum 2.04 mg/dL (0.70-1.20); EST Glomerular Filtration Rate 32 (>60); Estimated Creatinine Clearance 40.42 ml/min (50-250); Globulin 3.9 g/dL (2.2-4.2); Glucose 1075 mg/dL (70-99); Potassium 6.8 mmol/L (3.3-5.1); Protein, Total 8.6 g/dL (5.9-8.4); Sodium Level 126 mmol/L (133-145); Total Bilirubin 0.41 mg/dL (0.00-1.30)
[2024-07-11 18:34] LABS: Bacteria RARE /hpf (None Seen); Internal QC Validated? YES +Cl - CLEAR BKGD; Pregnancy, Urine Negative Negative; Red Blood Cells-Urine 0-5 SEEN /hpf (0-5); Squamous Epithelial Cells - UA 0-5 SEEN /hpf (5-10); White Blood Cells 10-25 SEEN /hpf (0-5)
[2024-07-11 18:42] LABS: BETA-HYDROXYBUTYRATE 10.5 mmol/L (0.0-0.3)
[2024-07-11] MEDS: Insulin Lispro 100 UNIT in 0.9% Normal Saline (100mL Bag) 99 ML 8.3 UNIT CONT INF ×2 (19:14→22:08)
--- NOTE | 2024-07-11 19:17 | HP.PCM.HOS_ITS ---
HPI - General General Date of Admission: 07/11/24 Date of Service: 07/11/24 Chief Complaint: Unresponsive, hyperglycemia, ran out of insulin, N/V. HPI Narrative The patient is a 34 y/o F w/ PMHx: Obesity, Diabetes mellitus type I with insulin pump, Hyperthyroidism, Anxiety and Depression, Nicotine vaping who presents to the [facility] ED on 07/11/24 with history of being found unresponsive with patient's mother requesting a well check as she had not heard from her via phone the day prior reportedly unfortunately running out of insulin possibly over the last 24 hours with significant hyperglycemia, nausea and emesis. In the ED upon evaluation patient will wake up but is she is extremely lethargic and somnolent still. She is not answering any orientation questions workup in the ED included T98 temporally, heart rate 142, BP 91/47, respiratory rate 32, 99 % on room air, most recent repeat vitals T98.1 Axillary, heart rate 100, BP 113/60, respiratory rate 20, 98% on room air, CBC with WBC 34.9, he 1 15.1, MCV 97.8, platelet 357 with left shift, VBG with pH 7.02, pO2 65, bicarb 5, VBG pCO2 makes 18.5, CMP with sodium 126, potassium initial 6.8 however this was hemolyzed with repeat [], chloride 79, anion gap 43, BUN/creatinine 43/2.04, GFR 32, glucose 1075, lactic acid 5.7, hepatic profile with alk phos 162, B hydroxybutyrate 10.5, TSH 1.320, free T41.60, urinalysis noted to be clear, [place] gravity 1.020, protein 30, glucose of thousand, ketone 50, occult blood 50, negative nitrite, leukocyte esterase 25, urine WBCs 10-25 with no urine bacteria, chest x-ray with no acute cardiopulmonary findings, blood culture x 2 pending per ED. in the ED patient ministered IV cefepime, vancomycin, Zofran 4 mg IV x 1, and initiated on insulin drip in addition to 2 L normal saline. [facility] Medical History Insulin pump titration Diabetes mellitus type 1 Influenza A COVID-19 Obesity Vaginal delivery Diabetes in undelivered History of premature rupture of membranes (PPROM) History of pre-term labor depression Gestational thrombocytopenia History of tetanus, diphtheria, and acellular pertussis booster vaccination (Tdap) Presence of insulin pump Arm fracture Hypothyroid Herpes genitalis Depression Home Medications ?Medication ?Instructions ?Recorded ?Last Taken ?Type FreeStyle Lite Meter #1 ea 08/13/20 Unknown Rx (blood-glucose meter) blood-glucose meter (OneTouch #1 ea 09/11/20 Unknown R x Verio Flex Meter) insulin glargine 100 unit/mL 64 unit (0.64 mL) subcut QPM #10 mL 03/09/22 Unknown Rx subcutaneous solution (Lantus U-100 Insulin) insulin syringe,safety needle 0.3 #50 ea 03/09/22 Unkn own Rx mL 31 gauge x 15/64 (BD SafetyGlide Insulin Syringe) FreeStyle Navi 3 Sensor #6 ea 08/04/22 Unknown Rx (blood-glucose sensor) PNV 158-iron 13.5 mg-folic 0.5 cap PO 08/04/22 Unknown History mg-omega 3-dha 150 mg-epa-fish capsule (Natavi PNV) glucagon (human recombinant) 1 mg 1 mg subcut Q20M PRN hypoglycemia 08/04/22 Unknown Rx solution for injection #2 ea multivitamin (Daily Multi-Vitamin 1 tab PO DAILY 08/04 Unknown History tablet) levonorgestrel 20.4 mcg/24 hr (up 1 device intrauterin e ONCE 08/23/22 Unknown History to 8 yrs) 52 mg intrauterine device (Liletta) estradiol 1 mg tablet (Estrace) 1 mg PO QDAY #30 tabs 06/28/23 Unknown Rx insulin lispro 100 unit/mL 170 unit (1.7 mL) continuou s 07/09/23 Unknown Rx subcutaneous solution subcutaneous infusion DAILY #50 mL Guardian 4 Glucose Sensor #10 ea 11/29/23 Unknown Rx (blood-glucose sensor) methimazole 5 mg tablet 5 mg PO DAILY #30 tabs 12/12 Unknown Rx blood sugar diagnostic (OneTouch #250 ea 02/01/24 Unkn own Rx Verio test strips) Allergy/AdvReac Type Severity Reaction Status Date / Time Penicillins Allergy Intermediate Unknown Verified 07/19/23 10:40 Family History Grandfather Diabetes Mother Anemia Surgical History H/O removal of cyst Social History housing: house Smoking Status: Current every day smoker tobacco type: e-cigarettes second hand exposure: Yes alcohol intake: current substance use type: does not use caffeine: Yes what type of physical activity do you participate in: none seatbelt use: sometimes do you feel safe at home: Yes additional social history: 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 ROS Review of Systems ROS Unobtainable: due to encephalopathy Vital Signs Vital Signs Vital Signs: 07/11/24 16:14 07/11/24 16:22 07/11/24 16:22 Temperature 98 F Temperature Source Temporal Pulse Rate 142 H 138 H Respiratory Rate 32 H 27 H Respiratory Pattern Tachypnea Blood Pressure 91/47 L Blood Pressure Mean 61 Pulse Ox 99 99 Oxygen Delivery Method Room Air 07/11/24 16:34 07/11/24 17:14 07/11/24 17:45 Temperature Temperature Source Pulse Rate 132 H 131 H Respiratory Rate 24 H 24 H Respiratory Pattern Blood Pressure 81/47 L 107/57 L 119/55 L Blood Pressure Mean 58 73 71 Pulse Ox 100 Oxygen Delivery Method 07/11/24 18:00 07/11/24 18:09 07/11/24 18:10 Temperature 98.1 F 98.1 F Temperature Source Axillary Pulse Rate 100 100 100 Respiratory Rate 16 16 20 H Respiratory Pattern Blood Pressure 127/79 H 127/79 H 113/60 Blood Pressure Mean 95 95 77 Pulse Ox 98 98 98 Oxygen Delivery Method Room Air Weight Weight: 182 lb 5.156 oz Body Mass Index (BMI) 31.3 Physical Exam Narrative Physical Examination: General: Patient will awaken but falls back asleep, somnolent, lethargic, unable to answer any orientation questions, not following commands, laying in ED bed, ill-appearing, disheveled. Skin: Normal color, normal turgor, no icterus, no cyanosis except occasional stage ecchymoses, abrasion. HEENT: AT/NC, EOM unable to be assessed well given lethargy, PERRLA, significantly dry MM, no carotid bruits or JVD noted. Lungs: Diminished, greater bases, tachypnea evident, no rales, ronchi or wheezing. Heart: Tachycardic with regular rhythm; no gallop, rub audible. Abdomen: Soft, patient does grimace abdominal exam, generalized, no obvious distention, hyperactive BS, no appreciated HSM. Extremities: No cyanosis, clubbing, or edema. Neurological: Patient will awaken but falls back asleep, somnolent, lethargic, unable to answer any orientation questions, not following commands, laying in ED bed, ill-appearing, disheveled, cognitive function not baseline intact; pupils equally reactive to light and accommodation, cranial nerves difficult to assess given lethargic status, moving all 4 extremities spontaneously during evaluation especially with abdominal exam, strength severely globally decreased. Psychiatric: Affect appears flat, lethargic, somnolent, no acute evidence of depressive or anxiety feelings. Results Lab / Micro Data 07/11/24 16:27 07/11/24 16:27 Labs: Laboratory Results - last 24 hr 07/11/24 16:20: POC Glucose > 500 H* 07/11/24 16:27: WBC 34.9 H*, RBC 4.95, Hgb 15.1 H, Hct 48.4 H, MCV 97.8, MCH 30.5, MCHC 31.2 L, RDW Std Deviation 45.1 H, RDW Coeff of Mylene 12.6, Plt Count 357, MPV 10.7, Immature Gran % (Auto) 2.100 H, Neut % (Auto) 89.2 H, Lymph % (Auto) 4.4 L, [place] % (Auto) 3.8, Eos % (Auto) 0.0, Baso % (Auto) 0.5, Absolute Neuts (auto) 31.2 H, Absolute Lymphs (auto) 1.52, Nucleated RBC % 0, Sodium 126 L, Potassium 6.8 H*, Chloride 79 L, Anion Gap 43 H, BUN 43 H, Creatinine 2.04 H, Estim Creat Clear Calc 40.42 L, Est GFR (MDRD) Non-Af 32 L, BUN/Creatinine Ratio 21.0 H, Glucose 1075 H*, Calcium 9.7, Total Bilirubin 0.41, AST 18, ALT 17, Alkaline Phosphatase 162 H, Total Protein 8.6 H, Albumin 4.6, Globulin 3.9, Albumin/Globulin Ratio 1.2, b-Hydroxybutyric mmol/L 10.5, TSH 1.320, Free T4 1.60 H 07/11/24 16:52: Lactic Acid 5.7 H*, Urine Color Yellow, Urine Clarity Clear, Urine pH 5.0, Ur Specific [employer] 1.020, Urine Protein 30 H, Urine Glucose (UA) 1000 H, Urine Ketones 50 H, Urine Occult Blood 50 H, Urine Nitrite Negative, Urine Bilirubin Negative, Urine Urobilinogen Normal, Ur Leukocyte Esterase 25 H, Urine RBC 0-5 SEEN, Urine WBC 10-25 SEEN, Ur Squamous Epith Cells 0-5 SEEN, Urine Bacteria RARE, Urine Mucus 0 SEEN, Urine Test Negative 07/11/24 17:45: POC Glucose > 500 H* ABG Data ABG results: ABG 07/11/24 18:17 Specimen Type CHARLES Sample Site Not entered VBG pH 7.02 L* VBG pO2 65 H VBG HCO3 5 L VBG Total CO2 5 L VBG O2 Sat (Calc) 81 H VBG Base Excess -26 L POC Mix VBG pCO2 Pt Tmp 18.5 L* O2 Delivery Device Not entered Crit Call To/Read Back Yes Blood Gas Notified Whom Dr Magallanes Blood Gas Notified Time 18:19:00 Imaging Radiology Impression Chest X-Ray 07/11/24 16:56 IMPRESSION: No acute airspace abnormality. Reading Location: [place] Assessment & Plan Assessment/Plan (1) DKA (diabetic ketoacidoses): PLAN: Plan The patient is a 34 y/o F w/ PMHx: Obesity, Diabetes mellitus type I with insulin pump, Hyperthyroidism, Anxiety and Depression, Nicotine vaping who presents to the [facility] ED on 07/11/24 with history of being found unresponsive with patient's mother requesting a well check as she had not heard from her via phone the day prior reportedly unfortunately running out of insulin possibly over the last 24 hours with significant hyperglycemia, nausea and emesis. #1. Acute Encephalopathy secondary to Acute DKA w/ Diabetes mellitus type I with insulin pump with significant electrolyte disturbances, metabolic acidosis: Patient administered 2 L normal saline in the ED initiated on insulin drip with broad-spectrum antibiotic therapy in addition. Will admit to the ICU, consult geographic information systems director per protocol, will administer bicarb amp x 2 now, continue on insulin drip, check serial K+, glucose w/ IVF changes pending these levels, serial chemistry, obtain mag, phos daily w/ repletion as needed, transition to home insulin pump when gap closed w/ overlap on drip, nutrition consultation. Encouraged diet and insulin regimen compliance. Hemoglobin A1c requested. #2. Leukocytosis, suspect reactive with acute presentation #1, coupled with dehydration/DAQUAN: In the ED patient administered significant broad-spectrum antibiotic therapy with IV cefepime and vancomycin, will continue aggressive hydration as noted, blood culture x 2 pending per ED, urinalysis unremarkable, will obtain rapid COVID/influenza/RSV to be cautious, procalcitonin requested. #3. Acute kidney injury: Secondary to acute presentation as noted #1. Admission BUN/Cr 43/2.04, prior baseline creatinine noted to be 0.5-0.9. Will continue to aggressively hydrate per DKA order set, hold nephrotoxic medications and repeat chemistry in AM. If no improvement would plan FeNa assessment. #4. Hyperthyroidism: We will continue patient home methimazole, TSH normal, free T4 mildly elevated, given acute presentation would benefit from continued outpatient follow-up studies with PCP. #5. Tobacco Abuse with nicotine vaping: Encouraged cessation, inpatient consultation per RT, NR if desired. #6. Obesity: Weight loss and lifestyle changes encouraged, nutrition consulted. #7. DVT prophylaxis: Heparin. Charges/Coding Visit Charges Inpatient E&M: 93868 Init Hosp L3
[2024-07-11 19:23] LABS: CPK Total, Creatine Kinase 70 U/L (24-195)
[2024-07-11 19:28] LABS: Platelet Morphology CLUMPED
[2024-07-11 19:29] LABS: Anisocytosis 1+; Polychromasia 1+
[2024-07-11 19:32] LABS: Pathologist Review May foll
[2024-07-11] MEDS: Vancomycin HCl 2,000 MG in 0.9% Normal Saline (500mL Bag) 500 ML 250 MG IV (20:02)
[2024-07-11 20:05] LABS: Bedside Glucose > 500 mg/dL (74-106)
[2024-07-11 20:47] LABS: Magnesium 3.3 mg/dL (1.5-2.2)
[2024-07-11 21:00] LABS: Potassium 6.5 mmol/L (3.3-5.1)
[2024-07-11] MEDS: 0.9% Normal Saline (1000mL) 1,000 ML 150 ML IV (21:34)
[2024-07-11] MEDS: Heparin Injection (Vial) 5,000 UNIT/ML VIAL 5000 UNIT SC (21:38)
[2024-07-11] MEDS: Sodium Bicarbonate 8.4% 50 ML Syringe 50 MEQ IV ×2 (21:49→21:55)
[2024-07-11 22:16] LABS: Bedside Glucose > 500 mg/dL (74-106)
[2024-07-11 22:47] LABS: Bedside Glucose > 500 mg/dL (74-106)
--- NOTE | 2024-07-11 22:58 | CON.PCM.CC_ITS ---
HPI Consult Data Date of Consult: 07/11/24 HPI Narrative Reason for Consultation: DKA HPI Narrative: FARZANA PACHECO, is a 34yo with T1DM who presents with Kussmaul breathing, hyperglycemia, and decreased LOC. HPI could not be reliably obtained from her 2/2 decreased LOC and poor cooperativity. Patient unable to detail how much insulin she takes. EMR reviewed. [facility] Medical History Insulin pump titration Diabetes mellitus type 1 Influenza A COVID-19 Obesity Vaginal delivery Diabetes in undelivered History of premature rupture of membranes (PPROM) History of pre-term labor depression Gestational thrombocytopenia History of tetanus, diphtheria, and acellular pertussis booster vaccination (Tdap) Presence of insulin pump Arm fracture Hypothyroid Herpes genitalis Depression Home Medications ?Medication ?Instructions ?Recorded ?Last Taken ?Type FreeStyle Lite Meter #1 ea 08/13/20 Unknown Rx (blood-glucose meter) blood-glucose meter (OneTouch #1 ea 09/11/20 Unknown R x Verio Flex Meter) insulin glargine 100 unit/mL 64 unit (0.64 mL) subcut QPM #10 mL 03/09/22 Unknown Rx subcutaneous solution (Lantus U-100 Insulin) insulin syringe,safety needle 0.3 #50 ea 03/09/22 Unkn own Rx mL 31 gauge x 15/64 (BD SafetyGlide Insulin Syringe) FreeStyle Navi 3 Sensor #6 ea 08/04/22 Unknown Rx (blood-glucose sensor) PNV 158-iron 13.5 mg-folic 0.5 cap PO 08/04/22 Unknown History mg-omega 3-dha 150 mg-epa-fish capsule (Natavi PNV) glucagon (human recombinant) 1 mg 1 mg subcut Q20M PRN hypoglycemia 08/04/22 Unknown Rx solution for injection #2 ea multivitamin (Daily Multi-Vitamin 1 tab PO DAILY 08/04 Unknown History tablet) levonorgestrel 20.4 mcg/24 hr (up 1 device intrauterin e ONCE 08/23/22 Unknown History to 8 yrs) 52 mg intrauterine device (Liletta) estradiol 1 mg tablet (Estrace) 1 mg PO QDAY #30 tabs 06/28/23 Unknown Rx insulin lispro 100 unit/mL 170 unit (1.7 mL) continuou s 07/09/23 Unknown Rx subcutaneous solution subcutaneous infusion DAILY #50 mL Guardian 4 Glucose Sensor #10 ea 11/29/23 Unknown Rx (blood-glucose sensor) methimazole 5 mg tablet 5 mg PO DAILY #30 tabs 12/12 Unknown Rx blood sugar diagnostic (OneTouch #250 ea 02/01/24 Unkn own Rx Verio test strips) Allergy/AdvReac Type Severity Reaction Status Date / Time Penicillins Allergy Intermediate Unknown Verified 07/19/23 10:40 Family History Grandfather Diabetes Mother Anemia Surgical History H/O removal of cyst Social History housing: house Smoking Status: Current every day smoker tobacco type: e-cigarettes second hand exposure: Yes alcohol intake: current substance use type: does not use caffeine: Yes what type of physical activity do you participate in: none seatbelt use: sometimes do you feel safe at home: Yes additional social history: 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 ROS ROS Narrative Unable to review due to encephalopathy Objective Data Objective Data Vital Signs: Vital Signs Last response 3 Temperature 37.3 C H 07/11/24 22:18 Temperature Source Core 07/11/24 22:18 Pulse Rate 139 H 07/11/24 22:18 Respiratory Rate 40 H 07/11/24 22:18 Respiratory Effort Labored 07/11/24 22:00 Respiratory Depth Shallow 07/11/24 22:00 Respiratory Pattern Tachypnea 07/11/24 16:22 Blood Pressure 112/65 07/11/24 22:18 Blood Pressure Mean 80 07/11/24 22:18 Blood Pressure Source Monitor 07/11/24 22:18 Blood Pressure Position Semi-Fowlers 07/11/24 22:18 Blood Pressure Location Right Arm 07/11/24 22:18 Pulse Ox 100 07/11/24 22:18 Oxygen Delivery Method Room Air 07/11/24 22:18 I&O: I&O Last 24 Hours 3 07/10/24 07/11/24 07/11/24 23:59 11:59 23:59 Intake Total 5113.54 / 5113.54 Output Total 350 / 350 Balance 4763.54 / 4763.54 I&O: Total Stay 3 07/11/24 16:14 thru 07/11/24 22:35 Intake Total 5113.54 Output Total 350 Balance 4763.54 Current Meds Ordered / Administered: Current meds ordered / Administered 3 Generic Name Dose Route Start Last Admin Trade Name Freq PRN Reason Stop Dose Admin Acetaminophen 650 mg 07/11/24 21:21 Acetaminophen 650 Mg Suppository RC Q4H PRN PRN Fever, pain 1-10 Acetaminophen 650 mg 07/11/24 21:21 Acetaminophen 325 Mg Tablet PO Q4H PRN PRN Fever, pain 1-10/10 Al Hydroxide/Mg Hydroxide 30 ml 07/11/24 21:21 Mag Hydrox/Al Hydrox/Simeth 30 Ml Udc PO Q6H PRN PRN Gastric Burning Albuterol Sulfate 2.5 mg 07/11/24 21:21 Albuterol 2.5 Mg/3 Ml Vial.Neb. INHALATION Q2H PRN PRN Dyspnea, wheezing Guaifenesin 10 ml 07/11/24 21:21 Guaifenesin 10 Ml Udc (200mg/10ml) PO Q4H PRN PRN COUGH Heparin Sodium (Porcine) 5,000 unit 07/11/24 22:00 07/11/24 21:38 Heparin Injection (Vial) 5,000 Unit/Ml Vial SC 5,000 unit Q12 ELENA Administration Hydralazine HCl 10 mg 07/11/24 21:21 Hydralazine 20 Mg/Ml Vial IV Q4H PRN PRN SBP > 160 Protocol Sodium Chloride 1,000 mls @ 150 mls/hr 07/11/24 21:21 07/11/24 21:34 IV 07/12/24 10:40 150 mls/hr .Q6H40M ELENA Administration Protocol Pantoprazole Sodium 40 mg/ 110 mls @ 330 mls/hr 07/11/24 22:00 07/11/24 22:34 Sodium Chloride IV Not Given Q12 ELENA Dextrose 250 mls @ 999 mls/hr 07/11/24 21:21 Dextrose 10%-Water IV .Q16M PRN Hypoglycemic Protocol Protocol Insulin Human Lispro 100 unit/ 100 mls @ 8.27 mls/hr 07/11/24 22:00 07/11/24 22:10 Sodium Chloride CONT INF 5 mls/hr .Q12H6M ELENA Infusion Protocol Insulin Glargine 16 unit 07/11/24 22:55 Insulin Glargine-Yfgn 100 Unit/Ml Pen SC BID ELENA Melatonin 3 mg 07/11/24 21:21 Melatonin 3 Mg Tablet PO QHS PRN PRN INSOMNIA Methimazole 5 mg 07/12/24 10:00 Methimazole 5 Mg Tablet PO DAILY ELENA Ondansetron HCl 4 mg 07/11/24 21:21 Ondansetron 4 Mg/2 Ml Vial IV Q8H PRN PRN NAUSEA/VOMITING Prochlorperazine Edisylate 5 mg 07/11/24 21:21 Prochlorperazine 10 Mg/2 Ml Vial IV Q4H PRN PRN Breakthrough Nausea/Vomiting Senna/Docusate Sodium 2 tablet 07/11/24 21:21 Senna/Docusate Sodium 1 Tablet PO BID PRN PRN Constipation Sodium Chloride 10 - 40 ml 07/11/24 21:40 0.9% Saline Lock 10 Ml Syringe IV UD PRN SALINE FLUSH Physical Exam Const General Appearance: lethargic and ill appearing Orientation / Consciousness: obtunded HEENT normocephalic and head/scalp atraumatic HEENT Narrative: dry membranes Throat: posterior oropharynx normal Eyes PERRL, EOMs intact bilaterally, conjunctivae normal and no scleral icterus Neck full ROM, supple and no JVD Lymph Lymphatic: no lymphadenopathy noted Chest inspection of chest normal Resp no use of accessory muscles Effort and Inspection: tachypneic Auscultation: clear to auscultation bilaterally Cardio regular rhythm Rate: tachycardic GI normal to inspection, nondistended, normoactive bowel sounds, soft to palpation and non-tender Back/Spine no CVA tenderness Lab / Micro Data Attestation: I reviewed the patient's lab results. 07/11/24 16:27 07/11/24 20:11 Labs: Laboratory Results - last 24 hr 07/11/24 16:20: POC Glucose > 500 H* 07/11/24 16:27: WBC 34.9 H*, RBC 4.95, Hgb 15.1 H, Hct 48.4 H, MCV 97.8, MCH 30.5, MCHC 31.2 L, RDW Std Deviation 45.1 H, RDW Coeff of Mylene 12.6, Plt Count 357, MPV 10.7, Immature Gran % (Auto) 2.100 H, Neut % (Auto) 89.2 H, Lymph % (Auto) 4.4 L, [place] % (Auto) 3.8, Eos % (Auto) 0.0, Baso % (Auto) 0.5, Absolute Neuts (auto) 31.2 H, Absolute Lymphs (auto) 1.52, Nucleated RBC % 0, Diff Path Review May foll, Plt Morphology Comment CLUMPED, Polychromasia 1+, Anisocytosis 1+, Sodium 126 L, Potassium 6.8 H*, Chloride 79 L, Anion Gap TNP, BUN 43 H, C reatinine 2.04 H, Estim Creat Clear Calc 40.42 L, Est GFR (MDRD) Non-Af 32 L, B UN/Creatinine Ratio 21.0 H, Glucose 1075 H*, Calcium 9.7, Phosphorus 12.0 H*, M agnesium 3.3 H, Total Bilirubin 0.41, AST 18, ALT 17, Alkaline Phosphatase 162 H , Total Creatine Kinase 70, Total Protein 8.6 H, Albumin 4.6, Globulin 3.9, Albumin/Globulin Ratio 1.2, b-Hydroxybutyric mmol/L 10.5, TSH 1.320, Free T4 1.60 H 07/11/24 16:52: Lactic Acid 5.7 H*, Urine Color Yellow, Urine Clarity Clear, Urine pH 5.0, Ur Specific [place] 1.020, Urine Protein 30 H, Urine Glucose (UA) 1000 H, Urine Ketones 50 H, Urine Occult Blood 50 H, Urine Nitrite Negative, Urine Bilirubin Negative, Urine Urobilinogen Normal, Ur Leukocyte Esterase 25 H, Urine RBC 0-5 SEEN, Urine WBC 10-25 SEEN, Ur Squamous Epith Cells 0-5 SEEN, Urine Bacteria RARE, Urine Mucus 0 SEEN, Urine Test Negative 07/11/24 17:45: POC Glucose > 500 H* 07/11/24 19:47: POC Glucose > 500 H* 07/11/24 20:11: Potassium 6.5 H* 07/11/24 21:57: POC Glucose > 500 H* 07/11/24 22:26: POC Glucose > 500 H* Micro: Microbiology 07/11/24 20:10 Mucosa - Nose SARS-CoV-2, Influenza & RSV (PCR) - Final ABG Data ABG results: ABG 07/11/24 18:17 Specimen Type CHARLES Sample Site Not entered VBG pH 7.02 L* VBG pO2 65 H VBG HCO3 5 L VBG Total CO2 5 L VBG O2 Sat (Calc) 81 H VBG Base Excess -26 L POC Mix VBG pCO2 Pt Tmp 18.5 L* O2 Delivery Device Not entered Crit Call To/Read Back Yes Blood Gas Notified Whom Dr Magallanes Blood Gas Notified Time 18:19:00 Imaging Radiology Impression Chest X-Ray 07/11/24 16:56 IMPRESSION: No acute airspace abnormality. Reading Location: [place] Reviewed, WNL Assessment and Plan . Assessment and plan: ICU Problem List: DKA Metabolic encephalopathy SIRS without Sepsis Plan: will cover for sepsis regardless load 16u glargine BID starting now for early gap closure defer intubation, improving mentation per onsite bedside nurse change to D5 when fingerstick <200 continue to titrate insulin christian Payton MD P[facility] Critical Care Time: 60 minuts The entirety of this encounter was done via Telemedicine
[2024-07-11] MEDS: Insulin Glargine-YFGN 100 UNIT/ML Pen 16 UNIT SC (23:09)
[2024-07-11 23:18] LABS: Allen Test Positive; Base Excess -22 mmol/L (-2 to +2); Bicarbonate 6.2 mmol/L (22-26); Blood Gas Specimen Type ART; Mode Not entered; O2 Delivery Device Room Air; PO2 101 mmHG (75-100); SITE L Radial; SO2 96 % (95-99); Total Carbon Dioxide 7 mmol/L; pCO2 16.1 mmHg (35-45)
[2024-07-11 23:29] LABS: Bedside Glucose > 500 mg/dL (74-106)
--- NOTE | 2024-07-11 23:34 | PCM.HOSP.N ---
Hospitalist Note Procal notably elevated, unclear source potential. To be cautious will continue IV Vanc and Cefepime.
[2024-07-11 23:44] LABS: BUN 44 mg/dL (4-19); BUN/Creat Ratio 20.7 RATIO (10-20); Calcium,Total 9.8 mg/dL (7.6-11.0); Chloride 78 mmol/L (98-108); Creatinine, Serum 2.11 mg/dL (0.70-1.20); EST Glomerular Filtration Rate 31 (>60); Estimated Creatinine Clearance 39.08 ml/min (50-250); Glucose 1041 mg/dL (70-99); Potassium 6.7 mmol/L (3.3-5.1); Sodium Level 127 mmol/L (133-145)
[2024-07-12] VITALS (25 sets, daily range): BP systolic 85–119; BP diastolic 49–83; PULSE 92–129; RESP 10–24; TEMP 37.2–37.7; O2SAT 97–100; BMI 31.4; BMI 30.2
[2024-07-12] MEDS: Sodium Bicarbonate 8.4% 50 ML Syringe 50 MEQ IV ×2 (00:24→00:25)
[2024-07-12 00:34] LABS: Bedside Glucose 444 mg/dL (74-106)
[2024-07-12 00:43] LABS: Lactic Acid 1.8 mmol/L (0.0-2.0)
[2024-07-12 01:13] LABS: Bedside Glucose 390 mg/dL (74-106)
[2024-07-12 01:19] LABS: BUN 38 mg/dL (4-19); BUN/Creat Ratio 23.1 RATIO (10-20); Calcium,Total 8.1 mg/dL (7.6-11.0); Chloride 108 mmol/L (98-108); Creatinine, Serum 1.64 mg/dL (0.70-1.20); EST Glomerular Filtration Rate 42 (>60); Estimated Creatinine Clearance 50.28 ml/min (50-250); Glucose 473 mg/dL (70-99); Potassium 4.4 mmol/L (3.3-5.1); Sodium Level 146 mmol/L (133-145)
[2024-07-12] MEDS: 0.9% Normal Saline (1000mL) 1,000 ML 150 ML IV (01:19)
--- NOTE | 2024-07-12 01:39 | PCM.RX.CS ---
Consult Antibiotic Management Pharmacy has been consulted to manage selected antibiotic: Vancomycin Type of Intervention Type of Consult: New start Labs Labs: Sodium 146 mmol/L (133-145) H 07/12/24 00:10 Potassium 4.4 mmol/L (3.3-5.1) 07/12/24 00:10 Chloride 108 mmol/L (98-108) 07/12/24 00:10 Anion Gap 31 (5-15) H 07/12/24 00:10 BUN 38 mg/dL (4-19) H 07/12/24 00:10 Creatinine 1.64 mg/dL (0.70-1.20) H 07/12/24 00:10 Est GFR (MDRD) Non-Af 42 (>60) L 07/12/24 00:10 BUN/Creatinine Ratio 23.1 RATIO (10-20) H 07/12/24 00:10 Glucose 473 mg/dL (70-99) H* 07/12/24 00:10 Microbiology Microbiology: Microbiology 07/11/24 20:10 Mucosa - Nose SARS-CoV-2, Influenza & RSV (PCR) - Final Dosing Weight Weight used for dosin.7 kg Estimated Creatinine Clearance Estimated Creatinine Clearance: 50.28 Goal Trough Goal Trough: 15-20 mcg/mL Pharmacy Plan for Drug Dosing Pharmacy Plan for Drug Dosing: Pharmacy Service will continue to monitor and adjust dosing as required. 2000MG GIVEN IN ER 07/11 @ 2001. START 750MG Q12H AND DRAW TROUGH PRIOR TO 4TH DOSE Follow-Up Labs Follow-Up Labs: Trough: Vancomycin Date/Time Labs Ordered Labs to be done on [date and time ordered]: 07/13 @ 4784
[2024-07-12 02:17] LABS: Bedside Glucose 346 mg/dL (74-106)
[2024-07-12 03:17] LABS: Bedside Glucose 314 mg/dL (74-106)
[2024-07-12 04:25] LABS: Absolute Lymphocyte Count 1.86 X10^3/uL (0.83-4.51); Basophil# 0.05 X10^3/uL; Basophil% 0.2 % (0-1); Eosinophil# 0.05 X10^3/uL; Eosinophils% 0.2 % (0-5); Hematocrit 37.7 % (37-47); Hemoglobin 12.7 g/dL (12.0-15.0); Lymphocyte # 1.86 X10^3/ul (0.83-4.51); Lymphocyte % 7.3 % (19-41); Mean Corp Hgb Conc 33.7 g/dL (32-36); Mean Corpuscular Hgb 30.4 pg (27.0-32.0); Mean Corpuscular Volume 90.2 fL (81-99); Mean Platelet Vol. 9.6 fl (6.2-12.0); Monocyte# 1.25 X10^3/uL; Monocyte% 4.9 % (0-10); NRBC Flagged by Analyzer 0 % (0-5); Neutrophil # 22.02 X10^3/uL (2.7-7.7); Neutrophil % 86.2 % (47-70); POSITIVE DIFFERENTIAL YES; Platelet Count 261 K/mm3 (150-450); RBC Distribution Width CV 12.7 % (11.6-14.6); RBC Distribution Width SD 41.4 fl (35.1-43.9); Red Blood Count 4.18 M/mm3 (4.2-5.4); White Blood Count 25.5 K/mm3 (4.4-11.0)
[2024-07-12 04:27] LABS: Bedside Glucose 301 mg/dL (74-106)
[2024-07-12 04:42] LABS: ALB/GLOB Ratio 1.3 RATIO (0.9-2.4); AST(SGOT) 17 U/L (<=31); Alanine Aminotransfer ALT/SGPT 13 U/L (<=34); Albumin, Serum 3.9 g/dL (3.5-5.0); Alkaline Phosphatase 100 U/L (35-104); Anion Gap 23 (5-15); BUN 33 mg/dL (4-19); BUN/Creat Ratio 23.7 RATIO (10-20); Calcium,Total 8.1 mg/dL (7.6-11.0); Carbon Dioxide 13.2 mmol/L (21.0-32.0); Chloride 115 mmol/L (98-108); Creatinine, Serum 1.41 mg/dL (0.70-1.20); EST Glomerular Filtration Rate 50 (>60); Estimated Creatinine Clearance 58.49 ml/min (50-250); Glucose 357 mg/dL (70-99); Protein, Total 6.8 g/dL (5.9-8.4); Sodium Level 151 mmol/L (133-145)
[2024-07-12 04:47] LABS: Differential Indicated SCAN CRITERIA MET
[2024-07-12 05:01] LABS: Differential Comment SCANNED
[2024-07-12 05:30] LABS: Hemoglobin A1c 9.8 % (<=5.6)
[2024-07-12 05:42] LABS: Bedside Glucose 284 mg/dL (74-106)
[2024-07-12] MEDS: KCL 20MEQ in D5.45NS 20 MEQ/1,000 ML IV.SOLN. 150 MEQ IV ×2 (05:51→12:45)
[2024-07-12 06:11] LABS: Bedside Glucose 285 mg/dL (74-106)
[2024-07-12 07:07] LABS: Bedside Glucose 326 mg/dL (74-106)
[2024-07-12 08:39] LABS: Bedside Glucose 289 mg/dL (74-106)
[2024-07-12] MEDS: Vancomycin HCl 750 MG in 0.9% Normal Saline (250mL Bag) 250 ML 250 MG IV ×2 (08:49→20:03)
[2024-07-12 08:50] LABS: Anion Gap 16 (5-15); BUN 29 mg/dL (4-19); BUN/Creat Ratio 24.7 RATIO (10-20); Calcium,Total 8.2 mg/dL (7.6-11.0); Carbon Dioxide 17.7 mmol/L (21.0-32.0); Chloride 119 mmol/L (98-108); Creatinine, Serum 1.19 mg/dL (0.70-1.20); EST Glomerular Filtration Rate 62 (>60); Estimated Creatinine Clearance 69.47 ml/min (50-250); Glucose 333 mg/dL (70-99); Sodium Level 153 mmol/L (133-145)
[2024-07-12 09:43] LABS: Bedside Glucose 278 mg/dL (74-106)
[2024-07-12 10:25] LABS: Bedside Glucose 266 mg/dL (74-106)
--- NOTE | 2024-07-12 10:53 | CASEMGMT ---
DAVID BARNEY Assessment: Face to Face with pt for initial transition planning/care coordination assessment. DAVID BARNEY introduced self and role at [facility], pt voices understanding and consents to assessment. Pt is A&O x4 and answers all questions appropriately at this time. Pt resting in bed, RN in the room with pt. Care providers, pharmacy, and demographics verified/updated. Strata: 2 Admitting Dx: DKA, DAQUAN PCP: Stacey Specialists: [place]. Preferred Pharmacy: [facility] Insurance: [employer] Prescription Benefit: yes LNOK: MomJanki Living Arrangements: Pt lives alone in an apartment. ADLs: Pt reports I at baseline. Transportation: Pt states she uses a taxi for transportation. DME: Glucometer and supplies, does not have insulin at home. HHC/SNF: Denies Hx Pt states she does not have insulin at home. She states she tried to call friends to help her get her insulin but nobody was willing to help. When DAVID BARNEY asked what she meant by that, was she trying to get a ride or did she need financial help to get the insulin, pt started crying and states I was puking everywhere and calling people asking them to go get me some insulin at [facility] and bring it no me but nobody would listen to me. CM to follow. Advised pt to ask CM if any further question/concerns/needs arise, voices understanding. Pt Goal: Home Plan: Home, follow for insulin and transportation home. Linus HERNANDEZ CM
[2024-07-12 11:17] LABS: Bedside Glucose 253 mg/dL (74-106)
[2024-07-12] MEDS: Heparin Injection (Vial) 5,000 UNIT/ML VIAL 5000 UNIT SC ×2 (11:59→20:13)
[2024-07-12] MEDS: Methimazole 5 MG Tablet PO (11:59)
[2024-07-12] MEDS: Pantoprazole Sodium 40 MG in 0.9% Normal Saline (100mL MB+) 100 ML 330 MG IV ×2 (11:59→20:01)
[2024-07-12] MEDS: Insulin Lispro 100 UNIT in 0.9% Normal Saline (100mL Bag) 99 ML 7 UNIT CONT INF (12:00)
[2024-07-12 12:44] LABS: Bedside Glucose 249 mg/dL (74-106)
[2024-07-12 12:57] LABS: Anion Gap 13 (5-15); BUN 26 mg/dL (4-19); BUN/Creat Ratio 26.8 RATIO (10-20); Carbon Dioxide 18.4 mmol/L (21.0-32.0); Chloride 122 mmol/L (98-108); Creatinine, Serum 0.95 mg/dL (0.70-1.20); EST Glomerular Filtration Rate 80 (>60); Estimated Creatinine Clearance 87.02 ml/min (50-250); Glucose 277 mg/dL (70-99); Potassium 3.7 mmol/L (3.3-5.1); Sodium Level 153 mmol/L (133-145)
[2024-07-12 13:28] LABS: Bedside Glucose 217 mg/dL (74-106)
--- NOTE | 2024-07-12 13:29 | PN.CC_ITS ---
Objective Data Objective Data Vital Signs: Vital Signs Last response 3 Temperature 37.3 C 07/12/24 06:00 Temperature Source Core 07/12/24 06:00 Pulse Rate 107 H 07/12/24 07:00 Respiratory Rate 17 07/12/24 07:00 Respiratory Effort Normal 07/12/24 02:00 Respiratory Depth Normal 07/12/24 02:00 Respiratory Pattern Tachypnea 07/11/24 16:22 Blood Pressure 99/49 L 07/12/24 07:00 Blood Pressure Mean 65 07/12/24 07:00 Blood Pressure Source Monitor 07/12/24 07:00 Blood Pressure Position Semi-Fowlers 07/12/24 07:00 Blood Pressure Location Right Arm 07/12/24 07:00 Pulse Ox 100 07/12/24 09:25 Oxygen Delivery Method Room Air 07/12/24 09:25 I&O: I&O Last 24 Hours 3 07/11/24 07/12/24 07/12/24 23:59 11:59 23:59 Intake Total 5117.71 / 5117.71 862.50 / 2007.50 1145 / 2007.50 Output Total 1100 / 1100 500 / 500 Balance 4017.71 / 4017.71 362.50 / 1507.50 1145 / 1507.50 I&O: Total Stay 3 07/11/24 16:14 thru 07/12/24 12:32 Intake Total 7125.21 Output Total 1600 Balance 5525.21 Current Meds Ordered / Administered: Current meds ordered / Administered 3 Generic Name Dose Route Start Last Admin Trade Name Freq PRN Reason Stop Dose Admin Acetaminophen 650 mg 07/11/24 21:21 Acetaminophen 650 Mg Suppository RC Q4H PRN PRN Fever, pain 1-10 Acetaminophen 650 mg 07/11/24 21:21 Acetaminophen 325 Mg Tablet PO Q4H PRN PRN Fever, pain 1-10/10 Al Hydroxide/Mg Hydroxide 30 ml 07/11/24 21:21 Mag Hydrox/Al Hydrox/Simeth 30 Ml Udc PO Q6H PRN PRN Gastric Burning Albuterol Sulfate 2.5 mg 07/11/24 21:21 Albuterol 2.5 Mg/3 Ml Vial.Neb. INHALATION Q2H PRN PRN Dyspnea, wheezing Guaifenesin 10 ml 07/11/24 21:21 Guaifenesin 10 Ml Udc (200mg/10ml) PO Q4H PRN PRN COUGH Heparin Sodium (Porcine) 5,000 unit 07/11/24 22:00 07/12/24 11:59 Heparin Injection (Vial) 5,000 Unit/Ml Vial SC 5,000 unit Q12 ELENA Administration Hydralazine HCl 10 mg 07/11/24 21:21 Hydralazine 20 Mg/Ml Vial IV Q4H PRN PRN SBP > 160 Protocol Pantoprazole Sodium 40 mg/ 110 mls @ 330 mls/hr 07/11/24 22:00 07/12/24 12:19 Sodium Chloride IV Infused Q12 ELENA Infusion Dextrose 250 mls @ 999 mls/hr 07/11/24 21:21 Dextrose 10%-Water IV .Q16M PRN Hypoglycemic Protocol Protocol Insulin Human Lispro 100 unit/ 100 mls @ 8.27 mls/hr 07/11/24 22:00 07/12/24 12:00 Sodium Chloride CONT INF 7 mls/hr .Q12H6M ELENA Administration Protocol Vancomycin IV-PHARMACY TO DOSE 500 mls @ 250 mls/hr 07/11/24 23:33 1 each/ Sodium Chloride IV X1 PRN Rx to Dose Protocol Cefepime HCl 2 gm/ Sodium 100 mls @ 200 mls/hr 07/12/24 10:00 Chloride IV Q12 ELENA Vancomycin HCl 750 mg/ Sodium 265 mls @ 250 mls/hr 07/12/24 08:00 07/12/24 09:53 Chloride IV Infused Q12H ELENA Infusion Potassium Chloride/Dextrose/Sod Cl 20 meq in 1,000 mls @ 150 mls/hr 07/12/24 04:50 07/12/24 12:45 IV 07/12/24 20:53 150 mls/hr .Q6H40M ELENA Administration Protocol Insulin Glargine 16 unit 07/11/24 22:55 07/12/24 11:43 Insulin Glargine-Yfgn 100 Unit/Ml Pen SC Not Given BID ELENA Melatonin 3 mg 07/11/24 21:21 Melatonin 3 Mg Tablet PO QHS PRN PRN INSOMNIA Methimazole 5 mg 07/12/24 10:00 07/12/24 11:59 Methimazole 5 Mg Tablet PO 5 mg DAILY ELENA Administration Ondansetron HCl 4 mg 07/11/24 21:21 Ondansetron 4 Mg/2 Ml Vial IV Q8H PRN PRN NAUSEA/VOMITING Prochlorperazine Edisylate 5 mg 07/11/24 21:21 Prochlorperazine 10 Mg/2 Ml Vial IV Q4H PRN PRN Breakthrough Nausea/Vomiting Senna/Docusate Sodium 2 tablet 07/11/24 21:21 Senna/Docusate Sodium 1 Tablet PO BID PRN PRN Constipation Sodium Chloride 10 - 40 ml 07/11/24 21:40 0.9% Saline Lock 10 Ml Syringe IV UD PRN SALINE FLUSH Vancomycin Protocol 1 lab 07/13/24 05:30 Vancomycin Trough/Random Due MC 07/13/24 09:30 DAILY [facility] Lab / Micro Data 07/12/24 04:10 07/12/24 12:00 Labs: Laboratory Results - last 24 hr 07/11/24 16:20: POC Glucose > 500 H* 07/11/24 16:27: WBC 34.9 H*, RBC 4.95, Hgb 15.1 H, Hct 48.4 H, MCV 97.8, MCH 30.5, MCHC 31.2 L, RDW Std Deviation 45.1 H, RDW Coeff of Mylene 12.6, Plt Count 357, MPV 10.7, Immature Gran % (Auto) 2.100 H, Neut % (Auto) 89.2 H, Lymph % (Auto) 4.4 L, [place] % (Auto) 3.8, Eos % (Auto) 0.0, Baso % (Auto) 0.5, Absolute Neuts (auto) 31.2 H, Absolute Lymphs (auto) 1.52, Nucleated RBC % 0, Diff Path Review May foll, Plt Morphology Comment CLUMPED, Polychromasia 1+, Anisocytosis 1+, Sodium 126 L, Potassium 6.8 H*, Chloride 79 L, Anion Gap GUN STRIPER, BUN 43 H, C reatinine 2.04 H, Estim Creat Clear Calc 40.42 L, Est GFR (MDRD) Non-Af 32 L, B UN/Creatinine Ratio 21.0 H, Glucose 1075 H*, Calcium 9.7, Phosphorus 12.0 H*, M agnesium 3.3 H, Total Bilirubin 0.41, AST 18, ALT 17, Alkaline Phosphatase 162 H , Total Creatine Kinase 70, Total Protein 8.6 H, Albumin 4.6, Globulin 3.9, Albumin/Globulin Ratio 1.2, b-Hydroxybutyric mmol/L 10.5, TSH 1.320, Free T4 1.60 H 07/11/24 16:52: Lactic Acid 5.7 H*, Urine Color Yellow, Urine Clarity Clear, Urine pH 5.0, Ur Specific [place] 1.020, Urine Protein 30 H, Urine Glucose (UA) 1000 H, Urine Ketones 50 H, Urine Occult Blood 50 H, Urine Nitrite Negative, Urine Bilirubin Negative, Urine Urobilinogen Normal, Ur Leukocyte Esterase 25 H, Urine RBC 0-5 SEEN, Urine WBC 10-25 SEEN, Ur Squamous Epith Cells 0-5 SEEN, Urine Bacteria RARE, Urine Mucus 0 SEEN, Urine Test Negative 07/11/24 17:45: POC Glucose > 500 H* 07/11/24 19:47: POC Glucose > 500 H* 07/11/24 20:11: Potassium 6.5 H* 07/11/24 21:20: Sodium 127 L, Potassium 6.7 H*, Chloride 78 L, Anion Gap 44 H, B UN 44 H, Creatinine 2.11 H, Estim Creat Clear Calc 39.08 L, Est GFR (MDRD) Non- Af 31 L, BUN/Creatinine Ratio 20.7 H, Glucose 1041 H*, Calcium 9.8, P rocalcitonin 11.50 H 07/11/24 21:57: POC Glucose > 500 H* 07/11/24 22:26: POC Glucose > 500 H* 07/11/24 23:08: POC Glucose > 500 H* 07/12/24 00:06: POC Glucose 444 H 07/12/24 00:10: Sodium 146 H, Potassium 4.4, Chloride 108, Anion Gap 31 H, BUN 38 H, Creatinine 1.64 H, Estim Creat Clear Calc 50.28, Est GFR (MDRD) Non-Af 42 L, BUN/Creatinine Ratio 23.1 H, Glucose 473 H*, Lactic Acid 1.8, Calcium 8.1 07/12/24 00:54: POC Glucose 390 H 07/12/24 01:58: POC Glucose 346 H 07/12/24 02:58: POC Glucose 314 H 07/12/24 03:56: POC Glucose 301 H 07/12/24 04:10: WBC 25.5 H, RBC 4.18 L, Hgb 12.7, Hct 37.7, MCV 90.2 D, MCH 30.4, MCHC 33.7 D, RDW Std Deviation 41.4, RDW Coeff of Mylene 12.7, Plt Count 261, MPV 9.6, Immature Gran % (Auto) 1.200 H, Neut % (Auto) 86.2 H, Lymph % (Auto) 7.3 L, [place] % (Auto) 4.9, Eos % (Auto) 0.2, Baso % (Auto) 0.2, Absolute Neuts (auto) 22.0 H, Absolute Lymphs (auto) 1.86, Nucleated RBC % 0, Differential Comment SCANNED, Sodium 151 H, Potassium 4.0, Chloride 115 H, C arbon Dioxide 13.2 L, Anion Gap 23 H, BUN 33 H, Creatinine 1.41 H, Estim Creat Clear Calc 58.49, Est GFR (MDRD) Non-Af 50 L, BUN/Creatinine Ratio 23.7 H, G lucose 357 H, Hemoglobin A1c 9.8, Calcium 8.1, Total Bilirubin 0.40, AST 17, ALT 13, Alkaline Phosphatase 100, Total Protein 6.8, Albumin 3.9, Globulin 3.0, Albumin/Globulin Ratio 1.3 07/12/24 05:12: POC Glucose 284 H 07/12/24 05:54: POC Glucose 285 H 07/12/24 06:47: POC Glucose 326 H 07/12/24 08:16: POC Glucose 289 H 07/12/24 08:21: Sodium 153 H, Potassium 4.0, Chloride 119 H, Carbon Dioxide 17.7 L, Anion Gap 16 H, BUN 29 H, Creatinine 1.19, Estim Creat Clear Calc 69.47, Est GFR (MDRD) Non-Af 62, BUN/Creatinine Ratio 24.7 H, Glucose 333 H, Calcium 8.2 07/12/24 09:21: POC Glucose 278 H 07/12/24 10:05: POC Glucose 266 H 07/12/24 10:59: POC Glucose 253 H 07/12/24 12:00: Sodium 153 H, Potassium 3.7, Chloride 122 H, Carbon Dioxide 18.4 L, Anion Gap 13, BUN 26 H, Creatinine 0.95, Estim Creat Clear Calc 87.02, Est GFR (MDRD) Non-Af 80, BUN/Creatinine Ratio 26.8 H, Glucose 277 H, Calcium 8.0 07/12/24 12:21: POC Glucose 249 H 07/12/24 13:10: POC Glucose 217 H Micro: Microbiology 07/11/24 23:05 Mucosa - Nasopharyngeal Respiratory Panel (PCR) - Final 07/11/24 20:10 Mucosa - Nose SARS-CoV-2, Influenza & RSV (PCR) - Final ABG Data ABG results: ABG 07/11/24 07/11/24 18:17 23:14 Specimen Type CHARLES ART Sample Site Not entered L Radial pH 7.20 L Bicarbonate Actual 6.2 L Total CO2 7 Base Excess -22 L O2 Saturation 96 ABG pCO2 16.1 L* ABG pO2 101 H Ramon Test Positive VBG pH 7.02 L* VBG pO2 65 H VBG HCO3 5 L VBG Total CO2 5 L VBG O2 Sat (Calc) 81 H VBG Base Excess -26 L POC Mix VBG pCO2 Pt Tmp 18.5 L* O2 Delivery Device Not entered Room Air Vent Mode Not entered Crit Call To/Read Back Yes Yes Blood Gas Notified Whom Dr Sona Gonsalves White Blood Gas Notified Time 18:19:00 23:16:11 Imaging Radiology Impression Chest X-Ray 07/11/24 16:56 IMPRESSION: No acute airspace abnormality. [facility] Assessment and Plan . Assessment and plan: Critical Care Time: The entirety of this encounter was done via Telemedicine Subjective Subjective Pt seen and examined. No acute events overnight. Remains lethargic. Insulin gtt D5-1/2NS + 20KCl PE: General: Well developed, in no distress HEENT: anicteric Sclera, nl nose; supple neck, no masses Cardiovascular: S1/S2; No rubs, gallops; no displaced PM Respiratory: diminished; no crackles, wheezes, or rhonchi Abdominal: Non-tender; Non distended; hypoBS x 4; No Hepatosplenomegaly Extremities: Warm, well perfused; No clubbing, cyanosis; capillary refill < 2 sec Skin: intact, no rashes Neurological: lethargic; no gross deficits appreciated A/P: #DKA: sp LA insulin on admit; cont insulin drip + fluids per protocol; q1h CBG + q4h BMP #Hypernatremia: cont hypotonic fluids; may need to switch to D5 #Encephalopathy: 2* to above; cont care #Sepsis vs SIRS: on emp vanc/cefepime; F/U Cx; de-esc as indicated PO diet when tolerated Heparin Guarded prognosis Jarret Rudolph MD Pulmonary/Critical Care CCT: 50 min The entirety of this encounter was completed via telemedicine
[2024-07-12] MEDS: Cefepime HCl 2 GM in 0.9% Normal Saline (100mL MB+) 100 ML IV ×2 (13:46→20:11)
[2024-07-12 14:16] LABS: Carbon Dioxide 4.6 mmol/L (21.0-32.0)
[2024-07-12 14:17] LABS: Carbon Dioxide 4.4 mmol/L (21.0-32.0)
[2024-07-12 14:18] LABS: Anion Gap 32 (5-15); Carbon Dioxide 6.3 mmol/L (21.0-32.0)
--- NOTE | 2024-07-12 14:24 | PN_ITS ---
Subjective Subjective Patient seen and examined. She felt weak and lethargic and complained of nausea and vomiting also. Review of systems is otherwise negative. WBC is elevated at 25.5.; Sodium is up to 153 tdoday. Anion gap has closed x 1. Glucose is 277. Phosphorous and magnesium are elevated. Objective Data Objective Data Vital Signs: Vital Signs Temp Pulse Resp BP Pulse Ox O2 Del Method 99.1 F 107 H 17 99/49 L 100 Room Air 07/12/24 06:00 07/12/24 07:00 07/12/24 07:00 07/12/24 07:00 07/12/24 09:25 07/12/24 09:25 Oxygen Delivery Method Room Air Weight: 183 lb 3.266 oz Body Mass Index (BMI) 31.4 Intake & Output: Intake and Output for Last 24 Hours 07/10/24 07/11/24 07/12/24 23:59 23:59 23:59 Intake Total 5117.71 / 5117.71 2007.50 / 2006.50 Output Total 1100 / 1100 500 / 500 Balance 4017.71 / 4017.71 1507.50 / 1507.50 Lab / Micro Data 07/12/24 04:10 07/12/24 12:00 Labs: Laboratory Results - last 24 hr 07/11/24 16:20: POC Glucose > 500 H* 07/11/24 16:27: WBC 34.9 H*, RBC 4.95, Hgb 15.1 H, Hct 48.4 H, MCV 97.8, MCH 30.5, MCHC 31.2 L, RDW Std Deviation 45.1 H, RDW Coeff of Mylene 12.6, Plt Count 357, MPV 10.7, Immature Gran % (Auto) 2.100 H, Neut % (Auto) 89.2 H, Lymph % (Auto) 4.4 L, [place] % (Auto) 3.8, Eos % (Auto) 0.0, Baso % (Auto) 0.5, Absolute Neuts (auto) 31.2 H, Absolute Lymphs (auto) 1.52, Nucleated RBC % 0, Diff Path Review May foll, Plt Morphology Comment CLUMPED, Polychromasia 1+, Anisocytosis 1+, Sodium 126 L, Potassium 6.8 H*, Chloride 79 L, Carbon Dioxide 4.4 L*, Anion Gap TNP, BUN 43 H, Creatinine 2.04 H, Estim Creat Clear Calc 40.42 L, Est GFR (MDRD) Non-Af 32 L, BUN/Creatinine Ratio 21.0 H, Glucose 1075 H*, Calcium 9.7, P hosphorus 12.0 H*, Magnesium 3.3 H, Total Bilirubin 0.41, AST 18, ALT 17, A lkaline Phosphatase 162 H, Total Creatine Kinase 70, Total Protein 8.6 H, Albumin 4.6, Globulin 3.9, Albumin/Globulin Ratio 1.2, b-Hydroxybutyric mmol/L 10.5, TSH 1.320, Free T4 1.60 H 07/11/24 16:52: Lactic Acid 5.7 H*, Urine Color Yellow, Urine Clarity Clear, Urine pH 5.0, Ur Specific [place] 1.020, Urine Protein 30 H, Urine Glucose (UA) 1000 H, Urine Ketones 50 H, Urine Occult Blood 50 H, Urine Nitrite Negative, Urine Bilirubin Negative, Urine Urobilinogen Normal, Ur Leukocyte Esterase 25 H, Urine RBC 0-5 SEEN, Urine WBC 10-25 SEEN, Ur Squamous Epith Cells 0-5 SEEN, Urine Bacteria RARE, Urine Mucus 0 SEEN, Urine Test Negative 07/11/24 17:45: POC Glucose > 500 H* 07/11/24 19:47: POC Glucose > 500 H* 07/11/24 20:11: Potassium 6.5 H* 07/11/24 21:20: Sodium 127 L, Potassium 6.7 H*, Chloride 78 L, Carbon Dioxide 4.6 L*, Anion Gap TNP, BUN 44 H, Creatinine 2.11 H, Estim Creat Clear Calc 39.08 L, Est GFR (MDRD) Non-Af 31 L, BUN/Creatinine Ratio 20.7 H, Glucose 1041 H*, Calcium 9.8, Procalcitonin 11.50 H 07/11/24 21:57: POC Glucose > 500 H* 07/11/24 22:26: POC Glucose > 500 H* 07/11/24 23:08: POC Glucose > 500 H* 07/12/24 00:06: POC Glucose 444 H 07/12/24 00:10: Sodium 146 H, Potassium 4.4, Chloride 108, Carbon Dioxide 6.3 L* , Anion Gap 32 H, BUN 38 H, Creatinine 1.64 H, Estim Creat Clear Calc 50.28, Est GFR (MDRD) Non-Af 42 L, BUN/Creatinine Ratio 23.1 H, Glucose 473 H*, Lactic Acid 1.8, Calcium 8.1 07/12/24 00:54: POC Glucose 390 H 07/12/24 01:58: POC Glucose 346 H 07/12/24 02:58: POC Glucose 314 H 07/12/24 03:56: POC Glucose 301 H 07/12/24 04:10: WBC 25.5 H, RBC 4.18 L, Hgb 12.7, Hct 37.7, MCV 90.2 D, MCH 30.4, MCHC 33.7 D, RDW Std Deviation 41.4, RDW Coeff of Mylene 12.7, Plt Count 261, MPV 9.6, Immature Gran % (Auto) 1.200 H, Neut % (Auto) 86.2 H, Lymph % (Auto) 7.3 L, [place] % (Auto) 4.9, Eos % (Auto) 0.2, Baso % (Auto) 0.2, Absolute Neuts (auto) 22.0 H, Absolute Lymphs (auto) 1.86, Nucleated RBC % 0, Differential Comment SCANNED, Sodium 151 H, Potassium 4.0, Chloride 115 H, C arbon Dioxide 13.2 L, Anion Gap 23 H, BUN 33 H, Creatinine 1.41 H, Estim Creat Clear Calc 58.49, Est GFR (MDRD) Non-Af 50 L, BUN/Creatinine Ratio 23.7 H, G lucose 357 H, Hemoglobin A1c 9.8, Calcium 8.1, Total Bilirubin 0.40, AST 17, ALT 13, Alkaline Phosphatase 100, Total Protein 6.8, Albumin 3.9, Globulin 3.0, Albumin/Globulin Ratio 1.3 07/12/24 05:12: POC Glucose 284 H 07/12/24 05:54: POC Glucose 285 H 07/12/24 06:47: POC Glucose 326 H 07/12/24 08:16: POC Glucose 289 H 07/12/24 08:21: Sodium 153 H, Potassium 4.0, Chloride 119 H, Carbon Dioxide 17.7 L, Anion Gap 16 H, BUN 29 H, Creatinine 1.19, Estim Creat Clear Calc 69.47, Est GFR (MDRD) Non-Af 62, BUN/Creatinine Ratio 24.7 H, Glucose 333 H, Calcium 8.2 07/12/24 09:21: POC Glucose 278 H 07/12/24 10:05: POC Glucose 266 H 07/12/24 10:59: POC Glucose 253 H 07/12/24 12:00: Sodium 153 H, Potassium 3.7, Chloride 122 H, Carbon Dioxide 18.4 L, Anion Gap 13, BUN 26 H, Creatinine 0.95, Estim Creat Clear Calc 87.02, Est GFR (MDRD) Non-Af 80, BUN/Creatinine Ratio 26.8 H, Glucose 277 H, Calcium 8.0 07/12/24 12:21: POC Glucose 249 H 07/12/24 13:10: POC Glucose 217 H Micro: Microbiology 07/11/24 23:05 Mucosa - Nasopharyngeal Respiratory Panel (PCR) - Final 07/11/24 20:10 Mucosa - Nose SARS-CoV-2, Influenza & RSV (PCR) - Final ABG Data ABG results: ABG 07/11/24 07/11/24 18:17 23:14 Specimen Type CHARLES ART Sample Site Not entered L Radial pH 7.20 L Bicarbonate Actual 6.2 L Total CO2 7 Base Excess -22 L O2 Saturation 96 ABG pCO2 16.1 L* ABG pO2 101 H Ramon Test Positive VBG pH 7.02 L* VBG pO2 65 H VBG HCO3 5 L VBG Total CO2 5 L VBG O2 Sat (Calc) 81 H VBG Base Excess -26 L POC Mix VBG pCO2 Pt Tmp 18.5 L* O2 Delivery Device Not entered Room Air Vent Mode Not entered Crit Call To/Read Back Yes Yes Blood Gas Notified Whom Dr Sona Gonsalves White Blood Gas Notified Time 18:19:00 23:16:11 Radiography Diagnostic Testing: Radiology Impression Chest X-Ray 07/11/24 16:56 IMPRESSION: No acute airspace abnormality. [facility] Physical Exam Const alert and oriented x3 Constitutional Narrative: lethargic, weak General Appearance: cooperative HEENT normocephalic, head/scalp atraumatic, moist oral mucous membranes and oropharynx normal Eyes PERRL and EOMs intact bilaterally Neck no lymphadenopathy and supple Lymph Lymphatic: no lymphadenopathy noted Resp normal respiratory effort, normal air movement and clear to auscultation bilaterally Cardio regular rate, regular rhythm, S1 normal heart sound, S2 normal heart sound and no murmurs GI normal to inspection, nondistended, normoactive bowel sounds, soft to palpation, non-tender and non-distended Extremity normal capillary refill, no clubbing, cyanosis or edema and no calf tenderness General Extremity: no tenderness to palpation of joints or extremities Skin General Skin Exam: no breakdown Neuro CN's II-XII intact bilaterally, no focal motor deficits and no sensory deficits noted Motor Exam: strength 5/5 throughout and general weakness Psych thought process normal Mood & Affect: flat affect Assessment & Plan Assessment/Plan (1) DKA (diabetic ketoacidoses): PLAN: Plan #DKA * patient is a known diabetic on insulin pump. She says she run out of insulin and was found unresponsive. * She was in DKA on admission and is on insulin drip * anion gap has closed x 1. * currently on D5 1/2 NS. Her sodium has gone up to 153 * switch to SC lantus once her blood sugar is <250 and anion gap has closed x 2 * bicarb is no w up to 18. Cr is down to 0.95 blood glucose was 1041 on admission and is now down to 277. * corrected sodium is actually 157 * will switch fluids to D5W to help with the hypernatremia * continue insulin drip for now * keep aptient NPO * critical care on board * * #DAQUAN: Likely due to DKA and dehydration: Resolved. Creatinine is trended down to normal. #Depression: #SIRS criteria: * Unclear source of infection. * Started on vancomycin and cefepime. Urine cultures and blood cultures pending. * Will de-escalate based on culture results. #hyperthyroidism: on methimazole #Nicotine dependence: Patient vapes. Counseled to quit. Nicotine patch as needed DVT prophylaxis: Heparin Charges/Coding Visit Charges Inpatient E&M: 69958 [facility] Hosp L3
[2024-07-12 14:55] LABS: Bedside Glucose 164 mg/dL (74-106)
[2024-07-12 15:39] LABS: Bedside Glucose 128 mg/dL (74-106)
[2024-07-12] MEDS: Dextrose 5%-Water (1000mL Bag) 1,000 ML 125 ML IV (15:41)
[2024-07-12 16:55] LABS: Bedside Glucose 131 mg/dL (74-106)
[2024-07-12 17:16] LABS: Anion Gap 13 (5-15); BUN 26 mg/dL (4-19); BUN/Creat Ratio 27.3 RATIO (10-20); Calcium,Total 8.7 mg/dL (7.6-11.0); Carbon Dioxide 21.3 mmol/L (21.0-32.0); Chloride 121 mmol/L (98-108); Creatinine, Serum 0.95 mg/dL (0.70-1.20); EST Glomerular Filtration Rate 81 (>60); Estimated Creatinine Clearance 87.02 ml/min (50-250); Glucose 162 mg/dL (70-99); Potassium 3.6 mmol/L (3.3-5.1); Sodium Level 155 mmol/L (133-145)
[2024-07-12 18:55] LABS: Bedside Glucose 144 mg/dL (74-106)
[2024-07-12] MEDS: Insulin Glargine-YFGN 100 UNIT/ML Pen 15 UNIT SC (20:12)
[2024-07-12 20:41] LABS: Bedside Glucose 139 mg/dL (74-106)
[2024-07-12 23:19] LABS: Anion Gap 12 (5-15); BUN 22 mg/dL (4-19); BUN/Creat Ratio 22.7 RATIO (10-20); Calcium,Total 8.4 mg/dL (7.6-11.0); Carbon Dioxide 21.6 mmol/L (21.0-32.0); Chloride 116 mmol/L (98-108); Creatinine, Serum 0.96 mg/dL (0.70-1.20); EST Glomerular Filtration Rate 80 (>60); Glucose 152 mg/dL (70-99); Potassium 3.4 mmol/L (3.3-5.1); Sodium Level 150 mmol/L (133-145)
[2024-07-12] MEDS: Acetaminophen 325 MG Tablet 650 MG PO (23:47)
[2024-07-13] VITALS (15 sets, daily range): BP systolic 98–140; BP diastolic 60–91; PULSE 86–120; RESP 15–24; TEMP 36.3–37.2; O2SAT 95–100; BMI 31.9
[2024-07-13 03:17] LABS: Bedside Glucose 314 mg/dL (74-106)
[2024-07-13 05:35] LABS: Absolute Lymphocyte Count 2.83 X10^3/uL (0.83-4.51); Absolute Neutrophil Count 12.8 X10^3/uL (2.0-7.7); Basophil# 0.03 X10^3/uL; Basophil% 0.2 % (0-1); Eosinophil# 0.04 X10^3/uL; Eosinophils% 0.2 % (0-5); Hematocrit 33.8 % (37-47); Hemoglobin 11.5 g/dL (12.0-15.0); Lymphocyte # 2.83 X10^3/ul (0.83-4.51); Lymphocyte % 16.9 % (19-41); Mean Corpuscular Hgb 30.5 pg (27.0-32.0); Mean Corpuscular Volume 89.7 fL (81-99); Mean Platelet Vol. 9.3 fl (6.2-12.0); Monocyte# 0.93 X10^3/uL; Monocyte% 5.6 % (0-10); NRBC Flagged by Analyzer 0 % (0-5); Neutrophil % 76.7 % (47-70); Platelet Count 170 K/mm3 (150-450); RBC Distribution Width CV 13.3 % (11.6-14.6); RBC Distribution Width SD 43.3 fl (35.1-43.9); Red Blood Count 3.77 M/mm3 (4.2-5.4); White Blood Count 16.7 K/mm3 (4.4-11.0)
--- NOTE | 2024-07-13 05:43 | PCM.HOSP.N ---
Hospitalist Note Patient clinically stable, off insulin drip, will change level of care to PCU status.
[2024-07-13] MEDS: Vancomycin Trough/Random Due 1 LAB MC (05:56)
[2024-07-13 06:12] LABS: Vancomycin, Trough Level 7.4 ug/mL (5.0-15.0)
[2024-07-13 06:28] LABS: Anion Gap 15 (5-15); BUN 18 mg/dL (4-19); BUN/Creat Ratio 20.7 RATIO (10-20); Calcium,Total 8.5 mg/dL (7.6-11.0); Carbon Dioxide 18.5 mmol/L (21.0-32.0); Chloride 108 mmol/L (98-108); Creatinine, Serum 0.85 mg/dL (0.70-1.20); EST Glomerular Filtration Rate 93 (>60); Estimated Creatinine Clearance 98.31 ml/min (50-250); Glucose 324 mg/dL (70-99); Potassium 3.8 mmol/L (3.3-5.1); Sodium Level 142 mmol/L (133-145)
[2024-07-13] MEDS: Insulin Lispro 100 UNIT/ML INSULN.PEN SC ×4 (06:50→21:55)
--- NOTE | 2024-07-13 06:58 | PCM.RX.CS ---
Consult Antibiotic Management Pharmacy has been consulted to manage selected antibiotic: Vancomycin Type of Intervention Type of Consult: Follow-up Labs Labs: Sodium 142 mmol/L (133-145) 07/13/24 05:10 Potassium 3.8 mmol/L (3.3-5.1) 07/13/24 05:10 Chloride 108 mmol/L (98-108) 07/13/24 05:10 Carbon Dioxide 18.5 mmol/L (21.0-32.0) L 07/13/24 05:10 Anion Gap 15 (5-15) 07/13/24 05:10 BUN 18 mg/dL (4-19) 07/13/24 05:10 Creatinine 0.85 mg/dL (0.70-1.20) 07/13/24 05:10 Est GFR (MDRD) Non-Af 93 (>60) 07/13/24 05:10 BUN/Creatinine Ratio 20.7 RATIO (10-20) H 07/13/24 05:10 Glucose 324 mg/dL (70-99) H 07/13/24 05:10 Vancomycin Trough 7.4 ug/mL (5.0-15.0) 07/13/24 05:10 Microbiology Microbiology: Microbiology 07/11/24 23:05 Mucosa - Nasopharyngeal Respiratory Panel (PCR) - Final 07/11/24 20:10 Mucosa - Nose SARS-CoV-2, Influenza & RSV (PCR) - Final Goal Trough Goal Trough: 15-20 mcg/mL Pharmacy Plan for Drug Dosing Pharmacy Plan for Drug Dosing: Pharmacy Service will continue to monitor and adjust dosing as required. TROUGH 7.4 @ 9 HOURS. INCREASE TO 1250MG Q12H AND DRAW TROUGH PRIOR TO 4TH DOSE Follow-Up Labs Follow-Up Labs: Trough: Vancomycin Date/Time Labs Ordered Labs to be done on [date and time ordered]: 07/14 @ 6969
[2024-07-13] MEDS: Vancomycin HCl 1,250 MG in 0.9% Normal Saline (250mL Bag) 250 ML 167 MG IV ×2 (07:54→18:43)
[2024-07-13] MEDS: 0.9% Normal Saline (1000mL) 1,000 ML 125 ML IV ×2 (09:34→18:38)
[2024-07-13] MEDS: Cefepime HCl 2 GM in 0.9% Normal Saline (100mL MB+) 100 ML IV ×2 (09:56→21:56)
[2024-07-13] MEDS: Heparin Injection (Vial) 5,000 UNIT/ML VIAL 5000 UNIT SC ×2 (10:33→21:56)
[2024-07-13] MEDS: Insulin Glargine-YFGN 100 UNIT/ML Pen 15 UNIT SC ×2 (10:34→21:55)
[2024-07-13] MEDS: Methimazole 5 MG Tablet PO (10:35)
[2024-07-13] MEDS: Pantoprazole Sodium 40 MG Tablet PO ×2 (12:05→21:57)
[2024-07-13 12:27] LABS: Bedside Glucose 296 mg/dL (74-106)
--- NOTE | 2024-07-13 12:40 | PN_ITS ---
Subjective Subjective Patient seen and examined. She looked much better today. She had no active complaints. HE denied any fever, chills, cough, chest pain, palpitations, dizziness, nausea, vomiting or any other symptoms. Review of systems is otherwise negative. She has remained hemodynamically stable. Objective Data Objective Data Vital Signs: Vital Signs Temp Pulse Resp BP Pulse Ox O2 Del Method 97.4 F L 95 15 114/60 100 Room Air 07/13/24 08:00 07/13/24 08:00 07/13/24 08:00 07/13/24 08:00 07/13/24 08:00 07/13/24 08:00 Oxygen Delivery Method Room Air Weight: 187 lb 2.759 oz Body Mass Index (BMI) 31.9 Intake & Output: Intake and Output for Last 24 Hours 07/11/24 07/12/24 07/14/24 23:59 23:59 00:59 Intake Total 5117.71 / 5117.71 5258.63 / 5258.63 975 / 975 Output Total 1100 / 1100 1575 / 1825 1100 / 1100 Balance 4017.71 / 4017.71 3683.63 / 3433.63 -125 / -125 Lab / Micro Data 07/13/24 05:10 07/13/24 05:10 Labs: Laboratory Results - last 24 hr 07/11/24 16:27: Carbon Dioxide 4.4 L*, Anion Gap TNP 07/11/24 21:20: Carbon Dioxide 4.6 L*, Anion Gap TNP 07/12/24 00:10: Carbon Dioxide 6.3 L*, Anion Gap 32 H 07/12/24 12:00: Sodium 153 H, Potassium 3.7, Chloride 122 H, Carbon Dioxide 18.4 L, Anion Gap 13, BUN 26 H, Creatinine 0.95, Estim Creat Clear Calc 87.02, Est GFR (MDRD) Non-Af 80, BUN/Creatinine Ratio 26.8 H, Glucose 277 H, Calcium 8.0 07/12/24 12:21: POC Glucose 249 H 07/12/24 13:10: POC Glucose 217 H 07/12/24 14:27: POC Glucose 164 H 07/12/24 15:19: POC Glucose 128 H 07/12/24 16:26: POC Glucose 131 H 07/12/24 16:50: Sodium 155 H, Potassium 3.6, Chloride 121 H, Carbon Dioxide 21.3, Anion Gap 13, BUN 26 H, Creatinine 0.95, Estim Creat Clear Calc 87.02, Est GFR (MDRD) Non-Af 81, BUN/Creatinine Ratio 27.3 H, Glucose 162 H, Calcium 8.7 07/12/24 18:36: POC Glucose 144 H 07/12/24 20:10: Sodium 150 H, Potassium 3.4, Chloride 116 H, Carbon Dioxide 21.6, Anion Gap 12, BUN 22 H, Creatinine 0.96, Estim Creat Clear Calc 84.70, Est GFR (MDRD) Non-Af 80, BUN/Creatinine Ratio 22.7 H, Glucose 152 H, Calcium 8.4, P OC Glucose 139 H 07/12/24 23:42: POC Glucose 314 H 07/13/24 05:10: WBC 16.7 H, RBC 3.77 L, Hgb 11.5 L, Hct 33.8 L, MCV 89.7, MCH 30.5, MCHC 34.0, RDW Std Deviation 43.3, RDW Coeff of Mylene 13.3, Plt Count 170, MPV 9.3, Immature Gran % (Auto) 0.400, Neut % (Auto) 76.7 H, Lymph % (Auto) 16.9 L, [place] % (Auto) 5.6, Eos % (Auto) 0.2, Baso % (Auto) 0.2, Absolute Neuts (auto) 12.8 H, Absolute Lymphs (auto) 2.83, Nucleated RBC % 0, Sodium 142, Potassium 3.8, Chloride 108, Carbon Dioxide 18.5 L, Anion Gap 15, BUN 18, Creatinine 0.85, Estim Creat Clear Calc 98.31, Est GFR (MDRD) Non-Af 93, BUN/Creatinine Ratio 20.7 H, Glucose 324 H, Calcium 8.5, Vancomycin Trough 7.4 07/13/24 12:04: POC Glucose 296 H Micro: Microbiology 07/11/24 23:05 Mucosa - Nasopharyngeal Respiratory Panel (PCR) - Final 07/11/24 20:10 Mucosa - Nose SARS-CoV-2, Influenza & RSV (PCR) - Final Physical Exam Const alert, oriented x3 and no apparent distress Constitutional Narrative: l General Appearance: cooperative HEENT normocephalic, head/scalp atraumatic, moist oral mucous membranes and oropharynx normal Eyes PERRL and EOMs intact bilaterally Neck no lymphadenopathy and supple Lymph Lymphatic: no lymphadenopathy noted Resp normal respiratory effort, normal air movement and clear to auscultation bilaterally Cardio regular rate, regular rhythm, S1 normal heart sound, S2 normal heart sound and no murmurs GI normal to inspection, nondistended, normoactive bowel sounds, soft to palpation, non-tender and non-distended Extremity normal capillary refill, no clubbing, cyanosis or edema and no calf tenderness General Extremity: no tenderness to palpation of joints or extremities Skin General Skin Exam: no breakdown Neuro CN's II-XII intact bilaterally, no focal motor deficits and no sensory deficits noted Motor Exam: strength 5/5 throughout and general weakness Psych thought process normal Appearance: appropriate Assessment & Plan Assessment/Plan (1) DKA (diabetic ketoacidoses): PLAN: Plan #DKA * patient is a known diabetic on insulin pump. She says she run out of insulin and was found unresponsive. * DKA has resolved. * anion gap closed x 2 * on SQ lantus 15 units bid as she has run out of insulin in her insulin pump * hypernatremia has also resolved. * on 1800 calorie diet. * bicarb had trended down slightly today to 18.5 today and anion gap is 15 * hydrate gently with iVF * high dose sliding scale * to refill insulin at [facility] pharmacy tomorrow for insulin pump to function again before patient is discharged. * #DAQUAN: Likely due to DKA and dehydration: Resolved. Creatinine is trended down to normal. #Depression: #SIRS criteria: * Unclear source of infection. * Started on vancomycin and cefepime. Blood cultures pending. * WBC 16.7. Culture results still pending. * Respiratory panel was negative. * Urinalysis really did not show any evidence of UTI. To de-escalate antibiotics with blood cultures are negative. * #hyperthyroidism: on methimazole #Nicotine dependence: Patient vapes. Counseled to quit. Nicotine patch as needed DVT prophylaxis: Heparin Anticipate discharge over the next 24 to 48 hours. Patient to get her insulin pump refilled at the [facility] pharmacy so it can be checked to be functioning before she is discharged. Charges/Coding Visit Charges Inpatient E&M: 61529 Subs Hosp L2
[2024-07-13 17:05] LABS: Bedside Glucose 234 mg/dL (74-106)
[2024-07-13 22:42] LABS: Bedside Glucose 283 mg/dL (74-106)
--- NOTE | 2024-07-14 00:17 | PCM.HOSP.N ---
Hospitalist Note Patient has remained clinically stable, will de-escalate to med surg level of care.
[2024-07-14 03:01] VITALS: BP 142/83; PULSE 84; RESP 16; TEMP 36.8; O2SAT 97
[2024-07-14] MEDS: Acetaminophen 325 MG Tablet 650 MG PO (03:23)
[2024-07-14 05:39] LABS: Absolute Lymphocyte Count 2.57 X10^3/uL (0.83-4.51); Absolute Neutrophil Count 5.2 X10^3/uL (2.0-7.7); Basophil# 0.02 X10^3/uL; Basophil% 0.2 % (0-1); Eosinophil# 0.02 X10^3/uL; Eosinophils% 0.2 % (0-5); Hematocrit 31.4 % (37-47); Hemoglobin 10.8 g/dL (12.0-15.0); Lymphocyte # 2.57 X10^3/ul (0.83-4.51); Lymphocyte % 30.7 % (19-41); Mean Corp Hgb Conc 34.4 g/dL (32-36); Mean Corpuscular Hgb 30.7 pg (27.0-32.0); Mean Corpuscular Volume 89.2 fL (81-99); Mean Platelet Vol. 9.7 fl (6.2-12.0); Monocyte# 0.54 X10^3/uL; Monocyte% 6.4 % (0-10); NRBC Flagged by Analyzer 0 % (0-5); Neutrophil # 5.21 X10^3/uL (2.7-7.7); Neutrophil % 62.3 % (47-70); Platelet Count 136 K/mm3 (150-450); RBC Distribution Width CV 13.1 % (11.6-14.6); RBC Distribution Width SD 42.4 fl (35.1-43.9); Red Blood Count 3.52 M/mm3 (4.2-5.4); White Blood Count 8.4 K/mm3 (4.4-11.0)
[2024-07-14] MEDS: Vancomycin HCl 1,250 MG in 0.9% Normal Saline (250mL Bag) 250 ML 167 MG IV (06:35)
[2024-07-14] MEDS: Insulin Lispro 100 UNIT/ML INSULN.PEN SC ×2 (06:48→11:26)
[2024-07-14 06:50] VITALS: BMI 32.1
[2024-07-14 07:08] LABS: Bedside Glucose 265 mg/dL (74-106)
--- NOTE | 2024-07-14 07:50 | PCM.PN.HOSP ---
Reason for Visit Reason for Visit: Diagnoses Type 2 diabetes mellitus with ketoacidosis without coma (07/11/24) Subjective Subjective Wants to shower. Objective Data Objective Data Vital Signs: Vital Signs Temp Pulse Resp BP Pulse Ox O2 Del Method 36.8 C 84 16 142/83 H 97 Room Air 07/14/24 03:01 07/14/24 03:01 07/14/24 03:01 07/14/24 03:01 07/14/24 03:01 07/14/24 03:06 Oxygen Delivery Method Room Air Weight: 85.5 kg Body Mass Index (BMI) 32.1 Intake & Output: Intake and Output for Last 24 Hours 07/12/24 07/14/24 07/14/24 23:59 00:59 23:59 Intake Total 5258.63 / 5258.63 3050 / 3050 1000 / 1000 Output Total 1575 / 1825 1550 / 1550 Balance 3683.63 / 3433.63 1500 / 1500 1000 / 1000 Lab / Micro Data 07/14/24 04:21 07/13/24 05:10 Labs: Laboratory Results - last 24 hr 07/13/24 12:04: POC Glucose 296 H 07/13/24 16:43: POC Glucose 234 H 07/13/24 21:55: POC Glucose 283 H 07/14/24 04:21: WBC 8.4, RBC 3.52 L, Hgb 10.8 L, Hct 31.4 L, MCV 89.2, MCH 30.7, MCHC 34.4, RDW Std Deviation 42.4, RDW Coeff of Mylene 13.1, Plt Count 136 L, MPV 9.7, Immature Gran % (Auto) 0.200, Neut % (Auto) 62.3, Lymph % (Auto) 30.7, [place] % (Auto) 6.4, Eos % (Auto) 0.2, Baso % (Auto) 0.2, Absolute Neuts (auto) 5.2, Absolute Lymphs (auto) 2.57, Nucleated RBC % 0 07/14/24 06:48: POC Glucose 265 H Micro: Microbiology 07/11/24 23:05 Mucosa - Nasopharyngeal Respiratory Panel (PCR) - Final 07/11/24 20:10 Mucosa - Nose SARS-CoV-2, Influenza & RSV (PCR) - Final Physical Exam Const alert and no apparent distress Assessment & Plan Assessment/Plan (1) DKA (diabetic ketoacidoses): PLAN: pt alleges that she ran out of insulin for her pump. has [address] Sky (endocrinology) on 05/08/24 and 06/30/24. Currently has an appointment for 08/01/24 at 1000. a1c 9.8 Will need to have insulin pump meds ordered by Dr. Sky, but she will need to follow up. In the meantime, she will be on glargine 20 BID and prandial insulin. (2) Leukocytosis: PLAN: Lactic acidosis on presentation likely due to DKA. Infectious work up so far negative. DC cefepime and vancomycin PLAN: Plan VTE prophylaxis: SQ heparin. DC home.
[2024-07-14 08:26] VITALS: O2SAT 96
[2024-07-14 09:00] VITALS: BP 135/97; PULSE 94; RESP 16; TEMP 36.5; O2SAT 100
--- NOTE | 2024-07-14 10:51 | DS.PCM_ITS ---
Providers Date of Admission: 07/11/24 Primary Care Physician: Dr. Geovanna Ibarra MD Consultations 07/11/24 21:21 Consult: Felt Dyeing Machine Tender / Pulmonary Medicine Routine Consulting Provider: Intensivists/Pulmonary Med Reason for Consult: DKA EMERGENT Consult: No MD Notified: Yes Date Notified: 07/11/24 Time Notified: 22:32 Method of Notification: Text Reason For Visit: DKA, DAQUAN Diagnosis Discharge Diagnosis (1) DKA (diabetic ketoacidoses): Status: Acute Code(s): E11.10 - Type 2 diabetes mellitus with ketoacidosis without coma Plan: pt alleges that she ran out of insulin for her pump. has [address] Sky (endocrinology) on 05/08/24 and 06/30/24. Currently has an appointment for 08/01/24 at 1000. a1c 9.8 Will need to have insulin pump meds ordered by Dr. Sky, but she will need to follow up. In the meantime, she will be on glargine 20 BID and prandial insulin. (2) Leukocytosis: Status: Acute Code(s): D72.829 - Elevated white blood cell count, unspecified Plan: Lactic acidosis on presentation likely due to DKA. Infectious work up so far negative. DC cefepime and vancomycin Plan VTE prophylaxis: SQ heparin. DC home. Medications at Discharge Home Medications FreeStyle Lite Meter (blood-glucose meter) #1 ea 08/13/20 blood-glucose meter (OneTouch Verio Flex Meter) #1 ea 09/11/20 insulin syringe,safety needle 0.3 mL 31 gauge x 15/64 (BD SafetyGlide Insulin Syringe) #50 ea 03/09/22 FreeStyle Navi 3 Sensor (blood-glucose sensor) #6 ea 08/04/22 PNV 158-iron 13.5 mg-folic 0.5 mg-omega 3-dha 150 mg-epa-fish capsule (Natavi PNV) cap PO 08/04/22 glucagon (human recombinant) 1 mg solution for injection 1 mg subcut Q20M PRN hypoglycemia #2 ea 08/04/22 multivitamin (Daily Multi-Vitamin tablet) 1 tab PO DAILY 08/04/22 levonorgestrel 20.4 mcg/24 hr (up to 8 yrs) 52 mg intrauterine device (Liletta) 1 device intrauterine ONCE 08/23/22 estradiol 1 mg tablet (Estrace) 1 mg PO QDAY #30 tabs 06/28/23 Guardian 4 Glucose Sensor (blood-glucose sensor) #10 ea 11/29/23 methimazole 5 mg tablet 5 mg PO DAILY #30 tabs 12/13/23 blood sugar diagnostic (OneTouch Verio test strips) #250 ea 02/01/24 insulin glargine-yfgn 100 unit/mL (3 mL) subcutaneous pen 20 unit (0.2 mL) subcut BID #15 mL 07/14/24 insulin lispro 100 unit/mL subcutaneous pen (Humalog KwikPen (U-100) Insulin) 5 unit subcut .tidac #15 mL 07/14/24 Hospital Course Operations None Procedures None Summary of Care Provided Minutes Spent on Discharge: 32 Hospital Course: Patient was found down at home and was in DKA. Patient had run out of her insulin days prior. Patient was put on insulin drip and DKA did resolve. Patient going to run out of her medications because she has canceled appointments. Patient endorses that she reached out to Dr. Sky's office and they told her to get the [id number] insulin which patient did not do. So patient will be discharged with glargine and prandial insulin and patient will be following up with Dr. Sky on the of this month to see about resuming her insulin pump. Weight / BMI Weight Weight: 85.5 kg Body Mass Index (BMI) 32.1 ABG / Lab / Microbiology Data 07/14/24 04:21 07/13/24 05:10 Laboratory: Laboratory Results - last 24 hr 07/13/24 12:04: POC Glucose 296 H 07/13/24 16:43: POC Glucose 234 H 07/13/24 21:55: POC Glucose 283 H 07/14/24 04:21: WBC 8.4, RBC 3.52 L, Hgb 10.8 L, Hct 31.4 L, MCV 89.2, MCH 30.7, MCHC 34.4, RDW Std Deviation 42.4, RDW Coeff of Mylene 13.1, Plt Count 136 L, MPV 9.7, Immature Gran % (Auto) 0.200, Neut % (Auto) 62.3, Lymph % (Auto) 30.7, Randall % (Auto) 6.4, Eos % (Auto) 0.2, Baso % (Auto) 0.2, Absolute Neuts (auto) 5.2, Absolute Lymphs (auto) 2.57, Nucleated RBC % 0 07/14/24 06:48: POC Glucose 265 H Microbiology: Microbiology 07/11/24 23:05 Mucosa - Nasopharyngeal Respiratory Panel (PCR) - Final 07/11/24 20:10 Mucosa - Nose SARS-CoV-2, Influenza & RSV (PCR) - Final D/C Instructions Discharge Diet: 2000 Calorie Control Diet DC O2, CPAP, BIPAP Needs Home O2 Discharge instructions: No Meaningful Use Info Meaningful Use Meaningful Use Diagnoses (Choose all that apply): None applicable Ischemic Stroke Statin Dosing Therapy Reference: STATIN DOSE THERAPY REFERENCE: * Patients > 75 years receive moderate or high dose statin therapy. * Patients 75 years or YOUNGER should receive HIGH intensity statin dose unless contraindicated. You will be required to document reason for non-treatment if statin daily dose does not meet guidelines. HIGH DOSE STATIN THERAPY DAILY Atorvastatin > than or = to 40 mg Rosuvastatin > than or = to 20 mg Amlodipine + Atorvastatin > than or = to 2.5/40 mg Ezetimibe + Simvastatin 10/80 mg Simvastatin 80mg Discharge Plan Admission Admit Date/Time: 07/11/24 19:18 Primary Reason for Your Visit: DKA Attending Provider: Ian Bentley Primary Care Provider: Geovanna Ibarra Consulting Providers: Suzanne Schilling; Ursula Glover Discharge Orders/Prescriptions Prescriptions: New insulin glargine-yfgn 100 unit/mL (3 mL) Insulin Pen 20 unit subcut BID Qty: 15 0RF insulin lispro [Humalog KwikPen Insulin] 100 unit/mL Insulin Pen 5 unit subcut .tidac Qty: 15 0RF Protocol: 5. Sliding Scale Insulin High Dosing Condition: 150-209 mg/dl = 3 units Condition: 210-259 mg/dl = 6 units Condition: 260-324 mg/dl = 9 units Condition: 325-374 mg/dl = 12 units Condition: 375-409 mg/dl = 14 units Condition: 410-449 mg/dl = 16 units Condition: Greater than 449 call physician Protocol Text: Suggested for: - Patients on Total Daily Insulin Dose of 81-120 units - Very insulin resistant patients HIGH DOSING ALGORITHM Continued Carlos PNV 13.5 mg iron- 0.5 mg-150 mg capsule PO multivitamin [Daily Multi-Vitamin] Tablet 1 tab PO DAILY glucagon (human recombinant) 1 mg recon soln 1 mg SC Q20M PRN (Reason: hypoglycemia) Qty: 2 6RF Rx Instructions: until target blood sugar attained (DME) FreeStyle Navi 3 Sensor Device See Rx Instructions .Route Qty: 6 3RF Rx Instructions: As directed Liletta 20.4 mcg/24 hrs (8 yrs) 52 mg intrauterine device 1 device intrauterine ONCE Rx Instructions: as a single dose estradiol [Estrace] 1 mg tablet 1 mg PO QDAY Qty: 30 0RF (DME) blood-glucose meter [FreeStyle Lite Meter] Kit See Rx Instructions .ROUTE .MEDSUPPLY Qty: 1 0RF Rx Instructions: As directed to monitor glucose levels (DME) blood-glucose meter [OneTouch Verio Flex meter] [facility] [place] Rx Instructions .ROUTE .MEDSUPPLY Qty: 1 0RF Rx Instructions: As directed (DME) BD SafetyGlide Insulin Syringe 0.3 mL 31 gauge x 15/64 syringe See Rx Instructions .ROUTE .MEDSUPPLY Qty: 50 0RF Rx Instructions: 4x/day (DME) Guardian 4 Glucose Sensor Device See Rx Instructions .Route Qty: 10 6RF Rx Instructions: As directed methimazole 5 mg tablet 5 mg PO DAILY Qty: 30 5RF (DME) OneTouch Verio test strips Strip See Rx Instructions .ROUTE .MEDSUPPLY Qty: 250 7RF Rx Instructions: test 8 time daily Discontinued insulin glargine [Lantus U-100 Insulin] 100 unit/mL solution 64 unit subcut QPM Qty: 10 0RF insulin lispro 100 unit/mL solution 170 unit continuous subcutaneous infusion DAILY Qty: 50 6RF Referrals / Follow Up: Geovanna Ibarra MD [Primary Care Provider] - Within 2 Weeks Rod Sky MD [Med Staff - Courtesy Staff] - 08/01/24 Disposition Disposition (needs filled in before D/C Order can be placed): Home, Self Care Charges/Coding Visit Charges Inpatient E&M: 52101 Disch Hosp >30min
--- NOTE | 2024-07-14 11:06 | PHA.DC.MR.R ---
Pharmacy [place] Med Reconciliation Pharmacy Service has performed discharge medication reconciliation for this patient. The patient's discharge medication list was reviewed for discrepancies and discrepancies were resolved. Medications at Discharge Home Medications FreeStyle Lite Meter (blood-glucose meter) #1 ea 08/13/20 blood-glucose meter (OneTouch Verio Flex Meter) #1 ea 09/11/20 insulin syringe,safety needle 0.3 mL 31 gauge x 15/64 (BD SafetyGlide Insulin Syringe) #50 ea 03/09/22 FreeStyle Navi 3 Sensor (blood-glucose sensor) #6 ea 08/04/22 PNV 158-iron 13.5 mg-folic 0.5 mg-omega 3-dha 150 mg-epa-fish capsule (Natavi PNV) cap PO 08/04/22 glucagon (human recombinant) 1 mg solution for injection 1 mg subcut Q20M PRN hypoglycemia #2 ea 08/04/22 multivitamin (Daily Multi-Vitamin tablet) 1 tab PO DAILY 08/04/22 levonorgestrel 20.4 mcg/24 hr (up to 8 yrs) 52 mg intrauterine device (Liletta) 1 device intrauterine ONCE 08/23/22 estradiol 1 mg tablet (Estrace) 1 mg PO QDAY #30 tabs 06/28/23 Guardian 4 Glucose Sensor (blood-glucose sensor) #10 ea 11/29/23 methimazole 5 mg tablet 5 mg PO DAILY #30 tabs 12/13/23 blood sugar diagnostic (OneTouch Verio test strips) #250 ea 02/01/24 insulin glargine-yfgn 100 unit/mL (3 mL) subcutaneous pen 20 unit (0.2 mL) subcut BID #15 mL 07/14/24 insulin lispro 100 unit/mL subcutaneous pen (Humalog KwikPen (U-100) Insulin) 5 unit subcut .tidac #15 mL 07/14/24
[2024-07-14] MEDS: Insulin Glargine-YFGN 100 UNIT/ML Pen 15 UNIT SC (11:25)
[2024-07-14] MEDS: Methimazole 5 MG Tablet PO (11:27)
--- NOTE | 2024-07-14 11:40 | CASEMGMT ---
Patient has order for discharge. RN CM in to discuss needs at discharge. Patient states she has supplies for CGM but ran out of insulin for her pump. Patient states she does not have pen needles at home, hospitalist updated and requested script be sent to [facility]. Patient states she has friend that will be coming to pick her up today. Patient aware of follow-up appt with Dr. Sky and states she will be attending. Patient had no further questions or concerns.
[2024-07-14 11:49] LABS: Bedside Glucose 288 mg/dL (74-106)
[2024-07-14 13:00] VITALS: BP 128/88; PULSE 98; RESP 16; TEMP 36.6; O2SAT 97
== END 2024-07-14 13:20 | disposition home or self-care (01) | DRG 637 ==
LOC: ED 19:08 → ICU 20:01 → MS2 07-14 01:32
PROVIDERS: Internal Medicine Critical Care Medicine; Student in an Organized Health Care Education/Training Program; Admitting Provider Family Medicine; Emergency Provider Emergency Medicine; PCP Internal Medicine
DX: E10.10 Type 1 diabetes mellitus with ketoacidosis without coma (principal); R65.11 Systemic inflammatory response syndrome (SIRS) of non-infectious origin with acute organ dysfunction; G93.41 Metabolic encephalopathy; E87.0 Hyperosmolality and hypernatremia; N17.9 Acute kidney failure, unspecified; E05.90 Thyrotoxicosis, unspecified without thyrotoxic crisis or storm; E66.9 Obesity, unspecified; Z79.4 Long term (current) use of insulin; F17.290 Nicotine dependence, other tobacco product, uncomplicated; D72.829 Elevated white blood cell count, unspecified; Z96.41 Presence of insulin pump (external) (internal); Z79.899 Other long term (current) drug therapy; Z68.31 Body mass index [BMI] 31.0-31.9, adult
CPT/HCPCS: 36600; 51702; 71045; 80048; 80053; 80202; 81001; 81025; 82010; 82550; 82803; 82962; 83036; 83605; 83735; 84100; 84132; 84145; 84439; 84443; 85025; 87040; 87631; 87633; 93005; 97802; 99285; A4216; J2405

== ENCOUNTER 2024-09-13 14:42 | Emergency (ER) | payer BC, SELFPAY ==
[2024-09-13 14:43] VITALS: BP 116/83; PULSE 138; RESP 16; TEMP 36.6; O2SAT 97; BMI 33.6
--- NOTE | 2024-09-13 15:05 | EX.ED.GENINJ ---
HPI History of Present Illness Chief Complaint: Head Injury Informant: patient Narrative Narrative: 34-year-old female states she injured her head this morning when she was helping a friend put some stuff together and as she was backing up from underneath the bed she stood up into it hitting the top of her head. It was a little sore at the beginning she had no loss of consciousness, but over the course of the day the pain has gotten worse, she has headache that feels like pressure, not a migraine, she felt little nauseated earlier but not right now. Denies any neck pain. Denies any focal neurologic symptoms or changes in her vision or photophobia. No other injury. She takes no antiplatelet or anticoagulants. She took some Tylenol did not help and that will made her concerned. [facility] Medical History Insulin pump titration Diabetes mellitus type 1 Influenza A COVID-19 Obesity Vaginal delivery Diabetes in undelivered History of premature rupture of membranes (PPROM) History of pre-term labor depression Gestational thrombocytopenia History of tetanus, diphtheria, and acellular pertussis booster vaccination (Tdap) Presence of insulin pump Arm fracture Hypothyroid Herpes genitalis Depression Home Medications ?Medication ?Instructions ?Recorded ?Last Taken ?Type FreeStyle Lite Meter #1 ea 08/13/20 Unknown Rx (blood-glucose meter) blood-glucose meter (OneTouch #1 ea 09/11/20 Unknown Rx Verio Flex Meter) insulin syringe,safety needle 0.3 #50 ea 03/09/22 Unknown Rx mL 31 gauge x 15/64 (BD SafetyGlide Insulin Syringe) FreeStyle Navi 3 Sensor #6 ea 08/04/22 Unknown Rx (blood-glucose sensor) PNV 158-iron 13.5 mg-folic 0.5 cap PO 08/04/22 Unknown History mg-omega 3-dha 150 mg-epa-fish capsule (Natavi PNV) glucagon (human recombinant) 1 mg 1 mg subcut Q20M PRN hypoglycemia 08/04/22 Unknown Rx solution for injection #2 ea multivitamin (Daily Multi-Vitamin 1 tab PO DAILY 08/04/22 Unknown History tablet) levonorgestrel 20.4 mcg/24 hr (up 1 device intrauterine ONCE 08/23/22 Unknown History to 8 yrs) 52 mg intrauterine device (Liletta) Guardian 4 Glucose Sensor #10 ea 11/29/23 Unknown Rx (blood-glucose sensor) blood sugar diagnostic (OneTouch #250 ea 02/01/24 Unknown Rx Verio test strips) pen needle, diabetic 29 gauge x #100 ea 07/14/24 Unknown Rx 1/2 fluticasone furoate 27.5 2 spray intranasal QDAY #5.9 mL 07/17/24 Unknown Rx mcg/actuation nasal spray,suspension (Flonase Sensimist) insulin lispro 100 unit/mL 100 unit subcut DAILY #30 mL 08/01/24 Unknown Rx subcutaneous solution (Humalog U-100 Insulin) methimazole 5 mg tablet 5 mg PO DAILY #30 tabs 08/01/24 Unknown Rx Allergy/AdvReac Type Severity Reaction Status Date / Time Penicillins Allergy Intermediate Unknown Verified 09/13/24 14:43 Family History Grandfather Diabetes Mother Anemia Surgical History H/O removal of cyst Social History housing: house Smoking Status: Former smoker second hand exposure: Yes alcohol intake: current substance use type: does not use caffeine: Yes what type of physical activity do you participate in: none seatbelt use: sometimes do you feel safe at home: Yes additional social history: 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 ROS ROS ED Constitutional Constitutional ED: Denies chills or fever(s) Eyes Eyes: Denies change in vision or diplopia ENT ENT ED: Denies ear pain, epistaxis, facial pain or rhinorrhea Cardiovascular Cardiovascular: Denies chest pain or palpitations Respiratory/Chest Respiratory/Chest: Denies cough or dyspnea Gastrointestinal Gastrointestinal: Reports nausea; Denies abdominal pain, diarrhea, melena or vomiting Genitourinary Genitourinary ED: Denies dysuria or hematuria Musculoskeletal Musculoskeletal: Denies back pain, extremity pain or neck pain Integumentary Denies abscess, Abrasions, laceration or rash Neurologic Neurologic: Reports headache(s); Denies confusion, paresthesias or weakness EXAM Physical Exam Const Vital Signs: 09/13/24 14:43 Temperature 97.9 F Temperature Source Oral Pulse Rate 138 H Respiratory Rate 16 Blood Pressure 116/83 H Blood Pressure Mean 94 Pulse Ox 97 Oxygen Delivery Method Room Air Positive well nourished and well developed General Appearance ED: well developed and NAD HEENT Reports TM's clear and nasal mucous membranes and turbinates normal HEENT Narrative: On top of her head there is a single point of tenderness in the scalp without any objective signs of trauma including contusion, hematoma, abrasion, laceration, crepitance, or depression. No Carlson sign, no raccoon eyes, no CSF otorhinorrhea, no hemotympanum. atraumatic and tenderness Face and Sinus: Negative for facial tenderness Tympanic Membrane ED: Yes TM's clear Eyes PERRL and EOMs intact bilaterally Visual Acuity: other Other Details: no entrapment or pain with extraocular movements Neck full ROM and supple General: Negative for tenderness Resp normal respiratory effort Back/Spine normal ROM Extremity normal to inspection and full ROM General Extremety ED: Negative for tenderness Neuro oriented x3, CN's II-XII intact bilaterally, moves all extremities, no focal motor deficits and no sensory deficits noted Paulina Coma Scale: document GCS findings Spontaneous Obeys Commands Oriented 15 Sensorium / Orientation: awake and alert Psych mental status grossly normal and thought process normal Skin no wounds Lesions: no lesions Rashes: no rashes MDM MDM MDM Narrative Medical decision making narrative: [place] CT Head Injury/Trauma Rule from [facility] on 09/13/2024 All calculations should be rechecked by clinician prior to use RESULT SUMMARY: CT Unnecessary The [place] CT Head Rule suggests a head CT is not necessary for this patient (sensitivity 83-100% for all intracranial traumatic findings, sensitivity 100% for findings requiring neurosurgical intervention). INPUTS: Age <16 years ?> 0 = No Patient on blood thinners ?> 0 = No Seizure after injury ?> 0 = No GCS <15 at 2 hours post-injury ?> 0 = No Suspected open or depressed skull fracture ?> 0 = No Any sign of basilar skull fracture? ?> 0 = No >= episodes of vomiting ?> 0 = No Age >=5 years ?> 0 = No Retrograde amnesia to the event >=30 minutes ?> 0 = No ?Dangerous? mechanism? ?> 0 = No As above, patient does not require CT scanning. She has a very benign exam, and this is a very low risk mechanism of injury that is very unlikely to result in an intracranial injury/bleed. She was concerned about taking ibuprofen and is a diabetic, I advised her that 1 dose will not hurt her since she does not have abnormal renal function on her last measurement on July 13. Advised supportive care and we discussed reasons to return including altered mental status, focal neurologic symptoms which she is not likely to develop. History & Record Review Discussion w/independent historian: Patient Discharge Plan Triage Chief Complaint: Head Injury ED Provider: Teja Bello Dx/Rx/DC Orders Clinical Impression: Closed head injury without loss of consciousness Instructions: ED Head Injury (Adult) Prescriptions: No Action Natavi PNV 13.5 mg iron- 0.5 mg-150 mg capsule PO multivitamin [Daily Multi-Vitamin] Tablet 1 tab PO DAILY glucagon (human recombinant) 1 mg recon soln 1 mg SC Q20M PRN (Reason: hypoglycemia) Qty: 2 6RF Rx Instructions: until target blood sugar attained (DME) FreeStyle Navi 3 Sensor Device See Rx Instructions .Route Qty: 6 3RF Rx Instructions: As directed Liletta 20.4 mcg/24 hrs (8 yrs) 52 mg intrauterine device 1 device intrauterine ONCE Rx Instructions: as a single dose methimazole 5 mg tablet 5 mg PO DAILY Qty: 30 5RF insulin lispro [Humalog U-100 Insulin] 100 unit/mL solution 100 unit subcut DAILY Qty: 30 7RF Rx Instructions: via insulin pump Flonase Sensimist 27.5 mcg/actuation spray,suspension 2 spray intranasal QDAY Qty: 5.9 0RF Rx Instructions: into each nostril (DME) pen needle, diabetic 29 gauge x 1/2 needle See Rx Instructions .Route Qty: 100 0RF Rx Instructions: As directed (DME) blood-glucose meter [FreeStyle Lite Meter] Kit See Rx Instructions .ROUTE .MEDSUPPLY Qty: 1 0RF Rx Instructions: As directed to monitor glucose levels (DME) blood-glucose meter [OneTouch Verio Flex meter] [facility] [place] See Rx Instructions .ROUTE .MEDSUPPLY Qty: 1 0RF Rx Instructions: As directed (DME) BD SafetyGlide Insulin Syringe 0.3 mL 31 gauge x 15/64 syringe See Rx Instructions .ROUTE .MEDSUPPLY Qty: 50 0RF Rx Instructions: 4x/day (DME) Guardian 4 Glucose Sensor Device See Rx Instructions .Route Qty: 10 6RF Rx Instructions: As directed (DME) OneTouch Verio test strips Strip See Rx Instructions .[facility] Qty[facility] 250 7RF Rx Instructions: test 8 time daily Primary Care Provider: Geovanna Ibarra Referrals: Geovanna Ibarra MD [Primary Care Provider] - 1 Week if not improving Print Language: Maori Disposition Disposition: Home, Self Care
[2024-09-13] MEDS: Ibuprofen 600 MG Tablet PO (15:15)
[2024-09-13 15:21] VITALS: BP 116/83; PULSE 138; RESP 16; TEMP 36.6; O2SAT 97
== END 2024-09-13 15:22 | disposition home or self-care (01) ==
LOC: ED 15:18
PROVIDERS: Emergency Provider Emergency Medicine; PCP Internal Medicine; Visit Provider Emergency Medicine
DX: S09.90XA Unspecified injury of head, initial encounter (principal); E10.9 Type 1 diabetes mellitus without complications; Z79.4 Long term (current) use of insulin; Z87.891 Personal history of nicotine dependence; W22.03XA Walked into furniture, initial encounter; Y93.89 Activity, other specified; Z96.41 Presence of insulin pump (external) (internal)
CPT/HCPCS: 99282

== ENCOUNTER → 2024-09-17 | Outpatient (CLI) | payer BC, SELFPAY ==
--- NOTE | 2024-09-17 09:04 | RAD_ITS ---
PROCEDURE: FOOT MIN 3 VIEWS 09/17/2024 REASON FOR EXAM: PAIN TECHNIQUE: 3 views of the left foot COMPARISON: None RAD/Foot min 3 Views IMPRESSION: A large inferior calcaneal spur is seen. Adjacent areas of calcification may r epresent partial calcification of the proximal plantar fascia. Normal contour of the Achilles tendon is noted on the lateral view. No ankle joint effusion is seen. Minimal degenerative changes are seen of the 1st metatarsophalangeal joint, wit hout significant joint narrowing or hallux valgus deformity. No fracture or dislocation is seen. If clinical concern persists, short-term follow-up imaging may be obtained to r ule out a currently occult fracture. Reading Location: [id number]
== END | disposition home or self-care (01) ==
LOC: MTRAD 09:04
PROVIDERS: PCP Internal Medicine; Referring Provider Physician Assistant; Visit Provider Physician Assistant
DX: M79.672 Pain in left foot (principal)
CPT/HCPCS: 73630

== ENCOUNTER → 2025-04-16 | Outpatient (CLI) | payer BC, SELFPAY ==
[2025-04-16 18:27] LABS: AST(SGOT) 16 U/L (<=31); Alanine Aminotransfer ALT/SGPT 10 U/L (<=34); Albumin, Serum 3.9 g/dL (3.5-5.0); Alkaline Phosphatase 80 U/L (35-104); Anion Gap 12 (5-15); BUN 14 mg/dL (4-19); BUN/Creat Ratio 16.5 RATIO (10-20); Calcium,Total 9.1 mg/dL (7.6-11.0); Carbon Dioxide 24.9 mmol/L (21.0-32.0); Chloride 99 mmol/L (98-108); Cholesterol 148 mg/dL (<=200); Free T3 2.7 pg/mL (2.18-3.98); Globulin 2.8 g/dL (2.2-4.2); Glucose 288 mg/dL (70-99); Low Density Lipoprotein Calc. 68 mg/dL; Potassium 4.3 mmol/L (3.3-5.1); Triglycerides 107 mg/dL; Very Low Density Lipoprotein 21 mg/dL (5-40); cholesterol:hdl ratio screen 2.45
== END | disposition home or self-care (01) ==
LOC: LAB 15:03
PROVIDERS: PCP Internal Medicine; Referring Provider Internal Medicine Endocrinology, Diabetes & Metabolism; Visit Provider Internal Medicine Endocrinology, Diabetes & Metabolism
DX: E10.65 Type 1 diabetes mellitus with hyperglycemia (principal); E05.90 Thyrotoxicosis, unspecified without thyrotoxic crisis or storm; Z96.41 Presence of insulin pump (external) (internal)
CPT/HCPCS: 36415; 80053; 80061; 84439; 84443; 84481